=== PATIENT | female | born 1975 | race African-American/Black ===

== ENCOUNTER → 2016-12-29 | Outpatient (CLI) | payer BC ==
[~2016-12-29] MED LIST: ADVIN50/60 INH; ALBUAER19 INH; FRRS300 PO; HYDUNK PO; METO100T7 PO; WARF2TAB PO; folic acid PO
--- NOTE | 2016-12-30 05:41 | PAP/PSG TECHNICIAN REPORT ---
[facility] Survey Data Technician Polysomnogram Report Study name: None Report date: 12/30/2016 Study date: 12/29/2016 Referring Physician: Olivia GONZALEZ M.D. Name: FERNANDO LAWSON Interpreting Physician: Vikash Gonzalez M.D. Date of : 1975 Survey Data Technician: Iman Young RPSGT. Sex: Female Age: 41 Study Type: PSG Weight: 370 lbs Height: 41 years, Height 5' 7" BMI: 57.94 Medications: FUROSEMIDE 20 MG, DUONEB 2.5-0.5 MG/3 ML, OMEPRAZOLE 20 MG, COUMADIN 1 MG AND 5 MG, ALBUTEROL 90 MCG Patient History 41 yr-old female here for a baseline/split study. She has had previous sleep testing. She was found to have mild GIULIANA. She is back to assess her GIULIANA. Her [place] scale is 7. The test was started on room air. ETCO2 testing is included in this study. Room 1 Parameters Monitored NPSG: E1-M2, E2-M1, Fp1-M2, Fp2-M1, F3-M2, F4-M2, F4-M1, C3-M2, C4-M2, C4-M1, O1-M2, O2-M2, O2-M1, T3-M2, T4-M1, P3-M2, P4-M1, CHIN1, CHIN2, HR, EKG, Legs, PFLOW, SNOR, FLOW, CFLOW, Tidal Volume, THOR, ABDO, SpO2, PLTH, CPRESS, ETCO2 Wave, ETCO2, pH Sleep Architecture Sleep Stages Time at Lights Off 10:49:25 PM STAGES Time (min.) TST (%) Time at Lights On 5:13:25 AM Wake 130.0 -- Total Recording Time (TRT) 384.00 min. N1 49.5 19 Total Sleep Period (TSP) 306.0 min. N2 107.5 42 Total Sleep Time (TST) 254.0min. N3 67.0 26 Awake Time 130.0 min. REM 30.0 12 Wake after Sleep Onset 77.0 min. Sleep Efficiency (SE) 66 % Sleep Onset Latency (TRANG) 53.0 min. Number of Stage 1 Shifts None Awakenings 19 Stage Changes 101 Number of REM periods 3 REM 30.0 12 REM Latency 129.0 min. NREM 224.0 88 Body Position Analysis Supine Right Left Side Prone Vertical Total Sleep Time (min.) 47.7 0.0 231.5 231.50 0.0 0.0 Total Sleep Time (%) 9% 0% 91% 91 0% N/A% Total Sleep Time REM (min.) 0.0 0.0 30.0 None 0.0 0.0 Total Sleep Time NREM (min.) 22.5 0.0 201.5 None 0.0 0.0 Intermittent Wake (min.) 25.2 0.0 104.8 None 0.0 0.0 Total Sleep Period (%) 10% None None None None None Arousals Myoclonus (PLM) * Events Count Index Events Count Index Spontaneous 25 6 Events Awake (PLMW) 121 55.8 Respiratory 7 1.7 Events Asleep w/ Arousal (PLMA) 29 6.9 PLM 28 7 Events Asleep w/o Arousal (PLMS) 329 77.7 Snoring 13 3 Total Asleep 358 84.6 Total 73 17 Total 479 75 Respiratory Analysis * CA OA MA CH H RERA Total Count 1 0 0 0 26 2 27 Index 0.2 0.0 0.0 0 6.1 0 6.9 Mean Duration 10.2 0.0 0.0 0.00 16.3 15.1 16.0 Longest Duration 10.2 0.0 0.0 0.00 0.0 16.3 32.2 Respiratory Event Summary Total Supine ~Supine Right Left Prone REM NREM Apneas Count 1 0 1 N/A 1 N/A 0 1 Index 0.2 0 0 N/A 0.3 N/A 0 0 Hypopneas (4% Desat) Count 26 0 26 N/A 26 N/A 19 7 Index 6.1 0.0 7 N/A 6.7 N/A 38.0 1.9 Apneas & All Hypopneas Count 27 0 27 N/A 27 N/A 19 8 Index 6.4 0 7 N/A 7 N/A 38.0 2.1 Respiratory Events (Semiconductor Assembler+All Hyp+RERA) Count 27 0 29 N/A 29 N/A 19 8 Index 6.9 0 8 N/A 7.5 N/A 38.0 2.7 Respiratory Related Arousal Count 7 0 7 N/A 7 N/A 3 4 Index 1.7 0 2 N/A 2 N/A 6 1 Snoring Analysis Supine Right Left Prone REM NREM Total Snore duration 25.6 min Snores count 107 N/A 1,041 N/A 30 1,118 1,148 Snore mean duration 1.3 Sec Snores index 285 N/A 270 N/A 60.0 299.5 271.2 TST with snoring (%) 10.1% SpO2 Analysis Total REM NREM Awake <50% 0.0 min. 0.0 min. 0.0 min. 0.0 min. 51 - 60% 0.0 min. 0.0 min. 0.0 min. 0.0 min. 61 - 70% 0.0 min. 0.0 min. 0.0 min. 0.0 min. 71 - 80% 1.1 min. 0.6 min. 0.3 min. 0.2 min. 81 - 90% 263.8 min. 27.9 min. 201.2 min. 34.7 min. 91 - 100% 96.5 min. 1.4 min. 22.0 min. 73.2 min. Average 89 86 88 92 Minimum SpO2 72 77 80 72 Desaturation Event Index 15.5 54.0 11.0 14.8 # Desat. Events below 89% 77 27 33 17 Time(%) with Saturation below 89% 48.5 7.0 38.1 3.4 Time(min.) with Saturation below 89% 175.3 25.4 137.7 12.2 Heart Rate Analysis End Tidal CO2 Analysis Min (bpm) Max (bpm) Average (bpm) TSP (mins) % of TSP Awake 46 237 109 Above 55 mmHg 0.0 0.0 NREM 70 102 93 50-55 mmHg 0.0 0.0 REM 70 104 90 45-50 mmHg 0.0 0.0 Overall 70 104 92 40-45 mmHg 0.0 0.0 35-40 mmHg 5.0 2.0 30-35 mmHg 189.2 74.5 Average ETCO2 0.0 Supplemental O2 Values Minimum O2 level: None Value Start Time End Time Survey Data Technician Comments Ms. Lawson slept in the left and supine positions. No cardiac arrhythmias were noted. PLMs were noted throughout the study. No bruxism noted. Snoring was noted and scored as a 2 on a scale of 1 through 5. (0=no snoring, 5=snoring loud enough to be heard through a closed door or down the [address] way) She did not meet specific Split-Night criteria during the diagnostic portion of this study. She awoke to use the restroom one time during the night. She woke up a little before 5 am and stated that she could no longer sleep. She requested to end the study at that time. Ms. Lawson stated that she slept poorly due to a stuffy nose. The final report will be interpreted and signed by a sleep physician. The completed physician report will then be placed in the patient medical record. Therapy (cm H2O) 0 TIB (min.) 384.0 TST (min.) 254.0 Sleep Onset (min.) 53.0 REM Onset From Sleep (min.) 129.0 Sleep Efficiency % 66 Wakefulness (%) 34 Wakefulness (min.) 130.0 NREM 1 (%) 19 NREM 1 (min.) 49.5 NREM 2 (%) 42 NREM 2 (min.) 107.5 NREM 3 (%) 26 NREM 3 (min.) 67.0 REM (%) 12 REM (min.) 30.0 # Arousals 73 Arousal Index 17 # Snore 1,148 Snore Index 271.2 AHI 6.4 AHI Supine 0 AHI Non-Supine 7 NREM AHI 2.1 REM AHI 38.0 RDI 6.9 # Obstructive Apnea 0 # Central Apnea 1 # Mixed Apnea 0 # Hypopneas 26 RERAs 2 Total Respiratory Events 29 Time Below SpO2 89% (min.) 163.1 Mean NREM SpO2 (%) 88 Mean REM SpO2 (%) 86 Mean Sleep SpO2 (%) 88 Min NREM SpO2 (%) 80 Min REM SpO2 (%) 77 Position Supine (min.) 47.7 Position Non-supine (min.) 231.5 LM Index Sleep 84.6 LM Index NREM 91.3 LM Index REM 34.0 Mean Heart Rate (bpm) 92 Min Heart Rate (bpm) 70
--- NOTE | 2017-01-15 10:05 | POLYSOMNOGRAPH REPORT ---
REFERRING PERSON: Dr. Jessee Gonzalez. [employer] T[employer] HELICOPTER: Iman Young. Ms. Aden is a 41-year-old female who was previously found to have mild obstructive sleep apnea on previous sleep testing. She is currently not using CPAP equipment but is sent for reevaluation. Her Gilmer Sleepiness Scale score on the evening of this study is 7. BMI is 57.94. Following the technical and digital specifications of the [place] [employer] (AASM) a standard diagnostic polysomnogram was performed monitoring EEG, EOG, EMG (chin and leg deviations), oxygen saturation, body position, digital video, respiratory effort and airflow. The sleep Stage and event scoring was based on the AASM Manual for the Scoring of Sleep and Associated Events 2007 edition. Apneas are defined as a drop in the peak thermal sensor excursion by >90% of baseline for at least 10 seconds. Hypopneas were scored using the 4% oxygen desaturation rule (4A-Medicare) and a decrease in the nasal pressure excursions by >30% of baseline for at least 10 seconds. Respiratory effort-related arousal (RERA's) is defined as a sequence of breaths lasting at least 10 seconds characterized by increasing respiratory effort or flattening of the nasal pressure waveform leading to an arousal from sleep when the sequence of breaths does not meet criteria for an apnea or hypopnea. Apnea Hypopnea index (AHI) is defined as the number of apneas and hypopneas occurring in an hour of sleep. Respiratory disturbance index (RDI) is defined as the number of apneas, hypopneas, and RERA's occurring in an hour of sleep. Ms. Aden' total sleep period time was 306 minutes. Total sleep time was 254 minutes. Sleep efficiency was 66%. Her latency to sleep onset was 53 minutes with wake after sleep onset of 77 minutes. Total non-REM sleep time was 224 minutes. She spent 11% of that time in N1 sleep, 42% in N2 sleep, and 26% in N3 sleep. REM latency was 129 minutes. Total REM sleep time was 30 minutes or 12% of total sleep time. There were 73 cortical arousals from sleep. Seven of these arousals were respiratory related, 28 due to periodic limb movements of sleep, 13 were due to snoring, and 25 were spontaneous. There were 358 periodic limb movements. Limb movement index was 84.6 with an arousal index of 6.9. There were no obstructive, 1 central, and no mixed apneas on this test. There were 26 hypopnea and 2 RERA. Apnea-hypopnea index was mildly elevated at 6.4. REM AHI was 38. Most events occurred during REM sleep. There were 1148 snoring events recorded. Total sleep time with snoring was 10.1%. Mean saturation was low at 89% with desaturations with the respiratory events of 72%. Saturations were less than 89 for 175.3 minutes of recording time. This is significant nocturnal hypoxemia. There was no cardiac ectopy noted on this study. Heart rates ranged from a low of 70 beats per minute to a high of 104 beats per minute during sleep. End-tidal CO2 was recorded on this test but was not elevated. This data, however, was incomplete. IMPRESSION AND PLAN: A 41-year-old female with confirmed evidence of mild sleep apnea, severe in REM sleep, who also has significant nocturnal hypoxemia on this test. This patient would likely benefit from positive airway pressure therapy. She should return to sleep lab for a full night titration and then based on those results be started on equipment at home. A download from her machine can be reviewed in 1 month both to check compliance as well as AHI and further pressure adjustments can occur at that time.
== END | disposition home or self-care (01) ==
LOC: C.NEUR 20:00
PROVIDERS: ATTEND Family Medicine
DX: I27.2 Other secondary pulmonary hypertension (principal); I27.82 Chronic pulmonary embolism; G47.33 Obstructive sleep apnea (adult) (pediatric)

== ENCOUNTER → 2017-01-11 | Outpatient (CLI) | payer BC ==
--- NOTE | 2017-01-11 14:31 | DIAGNOSTIC IMAGING REPORT ---
NUCLEAR PULMONARY VENTILATION/PERFUSION SCAN CLINICAL HISTORY: Pulmonary hypertension. COMPARISON STUDY: Chest x-ray dated 01/10/2017. Chest CT dated 04/10/2012. TECHNIQUE: Initially, ventilation images of both lungs are obtained following the inhalation of 31.6 mCi of aerosolized technetium 99m DTPA. Subsequently, perfusion images of both lungs were obtained following the IV administration of 5.5 mCi of technetium 99m MAA. Ventilation and perfusion images were acquired in the anterior, posterior, and oblique projections. FINDINGS: A chest x-ray performed 01/10/2017 shows enlarged heart. The lungs appear clear. Emphysema was shown on the 2012 CT scan. The ventilation of both lungs is markedly heterogeneous. Deposition of tracer within the central airways suggest obstructive physiology. Inhaled tracer is noted in the stomach.. Perfusion of both lungs is markedly heterogeneous. There are several segmental defects. These are likely matched with the perfusion defects. IMPRESSION: 1. Markedly heterogeneous ventilation and perfusion. Findings are considered intermediate probability for pulmonary embolus which is not excluded. 2. Findings suggest obstructive physiology. Electronically signed by: Obed Harper M.D. 01/11/2017 2:30 PM Dictated Date/Time: 01/11/2017 2:27 PM
== END | disposition home or self-care (01) ==
LOC: C.NUCL 12:48
PROVIDERS: ATTEND Internal Medicine Pulmonary Disease
DX: I27.2 Other secondary pulmonary hypertension (principal); I27.82 Chronic pulmonary embolism; R09.02 Hypoxemia; Z79.01 Long term (current) use of anticoagulants; D68.59 Other primary thrombophilia

== ENCOUNTER 2019-09-17 22:09 | Inpatient (IN) ==
[2019-09-17] MEDS ORDERED: ONDANSETRON INJ 2 MG/ML 2 ML VIAL IV STA (22:32)
--- NOTE | 2019-09-17 22:37 | Emergency Department Note ---
History of Present Illness General Chief complaint: Abdominal Pain Stated complaint: SEVERE STOMACH AND BACK PAIN Time Seen by Provider: 09/17/19 22:20 History of Present Illness Maximum Pain Intensity: 9 This is a 43-year-old female presenting to the emergency department for epigastric and right upper quadrant abdominal pain for the past 2 days. Patient states the pain was initially very dull but has increased in severity, and she currently rates it a /10. Patient does not have a history of abdominal surgery previously. She does have a history of chronic right-sided CHF and multiple pulmonary emboli, for which she is on Coumadin. She does follow with pulmonology in [place]. Patient has not had recent travel history, and does not report fevers or chills. No nausea or vomiting. Activity and food does not seem to improve or worsen her symptoms. There is no radiation of pain to the lower abdomen. Home Medications Home Medications Medication Instructions Recorded Confirmed Type albuterol sulfate [Ventolin HFA] 2 puff INHALATION QID PRN 09/30/18 09/17/19 History ferrous sulfate 325 mg PO DAILY 09/30/18 09/17/19 History macitentan 10 mg PO DAILY 09/30/18 09/17/19 History omeprazole 20 mg PO DAILY 09/30/18 09/17/19 History riociguat 2.5 mg PO TID 09/30/18 09/17/19 History ipratropium-albuterol 3 ml NEB Q6 PRN #180 ml 10/04/18 09/17/19 Rx potassium chloride 20 meq PO BID #60 tab 10/04/18 09/17/19 Rx bumetanide 3 mg PO BID 09/17/19 09/17/19 History warfarin [Coumadin] 8 mg PO DAILY 09/17/19 09/17/19 History Allergies Allergy/AdvReac Type Severity Reaction Status Date / Time codeine Allergy Unknown unknown Verified 09/17/19 23:27 Penicillins Allergy Unknown unknown Verified 09/17/19 23:27 Past Med/Surg History Medical History Acute and chronic respiratory failure (Acute) Acute asthma exacerbation (Acute) Asthma Bronchitis HTN (hypertension) Microcytic anemia (Chronic) Morbid obesity with BMI of 60.0-69.9, adult (Chronic) On home O2 Pulmonary embolism (Chronic) Pulmonary hypertension (Chronic) Surgical History History of embolectomy Social History Preferred Language: Swedish Communication Ability: Effective Visual Impairment: No Limitations Hearing Ability: Normal Beliefs That Will Affect Care: None Current Living Situation: Alone Feels Safe at Home: Yes Smoking Status: Never smoker Hx Alcohol Use: Yes Hx Substance Use: No Review of Systems A total of 10 systems reviewed and were otherwise negative Physical Exam Vital Signs Vital Signs - 24 hr 09/17/19 22:12 09/17/19 23:33 09/18/19 00:59 Temperature 36.6 C Temperature Source Oral Pulse Rate 98 H Pulse Rate [Right Finger] 89 81 Pulse Rhythm Regular Pulse Strength Normal Respiratory Rate 24 22 20 Respiratory Effort / Characteristics Non-Labored Spontaneous Respiratory Depth Normal Normal Respiratory Pattern Regular Blood Pressure 149/90 H Blood Pressure [Right Arm] 137/80 137/80 Blood Pressure Mean 109 Blood Pressure Mean [Right Arm] 99 99 Blood Pressure Position Sitting Pulse Oximetry 89 L 96 95 Oxygen Delivery Method Room Air Nasal Cannula Nasal Cannula Oxygen Flow Rate 2 2 Sepsis Recent Fever Within 48 Hours No Sepsis Action Taken by Nursing No Action Required VITALS: Vitals are noted on the nurse's note and reviewed by myself. Vital signs stable. GENERAL: Morbidly obese black female who is cooperative with the exam. HEAD: Normocephalic atraumatic. HEART: Regular rate and rhythm without murmurs gallops or rubs. LUNGS: Clear to auscultation bilaterally without wheezes, rales or rhonchi. No retractions or accessory muscle use. ABDOMEN: Positive normal bowel sounds x 4. Soft with distinct epigastric and right upper quadrant tenderness. No lower abdominal tenderness. No CVA tenderness. MUSCULOSKELETAL: No muscle atrophy, erythema, or edema noted. Full range of motion in all extremities. NEURO: Patient was alert and oriented to person place and time. CN II through XII grossly intact. SKIN: The skin was without rashes, erythema, edema, or bruising. Capillary refill less than 2 seconds. Course Administered Medications Ceftriaxone Sodium 2,000 mg/ (Dextrose) 70 mls @ 100 mls/hr IV Q24H [facility]; Protocol Stop: 09/28/19 02:59 Last Admin: 09/18/19 03:38 Dose: 100 mls/hr Documented by: [id number] Potassium Chloride/Sodium Chloride (Normal Saline W/20 Meq Kcl) 20 meq in 1,000 mls @ 100 mls/hr IV .Q10H [facility]ON Stop: 10/18/19 02:59 Last Infusion: 09/18/19 03:12 Dose: 0 mls/hr Documented by: [id number] Admin: 09/18/19 02:59 Dose: 100 mls/hr Documented by: [id number] Discontinued Medications Hydromorphone HCl (Dilaudid) 0.5 mg IV NOW STA Stop: 09/18/19 01:14 Last Admin: 09/18/19 01:22 Dose: 0.5 mg Documented by: [id number] Hydromorphone HCl (Dilaudid) 0.5 mg IV NOW STA Stop: 09/18/19 02:49 Last Admin: 09/18/19 02:58 Dose: 0.5 mg Documented by: [id number] Sodium Chloride (Nss 1000ml) 1,000 mls @ 125 mls/hr IV .Q8H LEON Stop: 10/17/19 22:44 Last Infusion: 09/18/19 03:13 Dose: 0 mls/hr Documented by: [id number] Admin: 09/17/19 22:48 Dose: 125 mls/hr Documented by: [id number] Phytonadione 10 mg/ Sodium (Chloride) 51 mls @ 102 mls/hr IV ONE ONE Stop: 09/18/19 02:35 Last Infusion: 09/18/19 03:29 Dose: 0 mls/hr Documented by: [id number] Admin: 09/18/19 02:59 Dose: 102 mls/hr Documented by: [id number] Morphine Sulfate (Morphine Sulfate) 4 mg IV Q1H PRN PRN Reason: Pain Stop: 10/01/19 22:31 Last Admin: 09/18/19 02:28 Dose: 4 mg Documented by: [id number] Admin: 09/18/19 00:57 Dose: 4 mg Documented by: [id number] Admin: 09/17/19 23:35 Dose: 4 mg Documented by: [id number] Admin: 09/17/19 22:43 Dose: 4 mg Documented by: [id number] Ondansetron HCl (Zofran) 4 mg IV NOW STA Stop: 09/17/19 22:33 Last Admin: 09/17/19 22:43 Dose: 4 mg Documented by: [id number] Medical Decision Making Differential Diagnosis Differential diagnosis: Etiologies such as biliary colic, cholecystitis, hepatitis, pancreatitis, cardiac disease, pancreatitis, gastritis, peptic ulcer disease, appendicitis, cystitis, diverticulitis, mesenteric ischemia, inflammatory bowel disease, ileus, bowel obstruction, testicular/adnexal torsion, aortic pathology, shingles, as well as others were considered Laboratory Data Result diagrams: 09/17/19 22:27 09/17/19 22:27 Lab Results 09/17/19 09/17/19 09/17/19 Range/Units 22:27 22:27 22:27 WBC 9.23 (4.8-10.8) K/uL RBC 5.07 (4.2-5.4) M/uL Hgb 11.4 L (12.0-16.0) g/dL Hct 37.3 (37-47) % MCV 73.6 L (80-100) fL MCH 22.5 L (25-34) pg MCHC 30.6 L (32-36) g/dL RDW Std Deviation 55.8 H (36.4-46.3) fL RDW Coeff of Malinda 20.9 H (11.5-14.5) % Plt Count 355 (130-400) K/uL MPV 10.0 (7.4-10.4) fL Immature Gran % (Auto) 0.2 % Neut % (Auto) 70.8 % Lymph % (Auto) 21.3 % [place] % (Auto) 5.9 % Eos % (Auto) 1.7 % Baso % (Auto) 0.1 % Immature Gran # (Auto) 0.02 (0.00-0.02) K/uL Neut # (Auto) 6.53 H (1.4-6.5) K/uL Lymph # (Auto) 1.97 (1.2-3.4) K/uL [place] # (Auto) 0.54 (0.11-0.59) K/uL Eos # (Auto) 0.16 (0-0.5) K/uL Baso # (Auto) 0.01 (0-0.2) K/uL Polychromasia 1+ Anisocytosis Present Ovalocytes 1+ PT 21.9 H (9.0-12.0) Seconds INR 2.3 H (0.9-1.1) APTT 30.5 (21.0-31.0) Seconds PTT Ratio 1.1 D-Dimer 310 (0-500) ug/L FEU Sodium 135 L (136-145) mmol/L Potassium 2.9 L (3.5-5.1) mmol/L Chloride 94 L (98-107) mmol/L Carbon Dioxide 35 H (21-32) mmol/L Anion Gap 7.0 (3-11) BUN 17 (7-18) mg/dl Creatinine 1.17 (0.6-1.2) mg/dl Est Cr Clr Drug Dosing 102.7 ml/min Est GFR ( Amer) 66.6 Est GFR (Non-Af Amer) 57.4 BUN/Creatinine Ratio 14.1 (10-20) Glucose 151 H (70-99) mg/dl Calcium 9.4 (8.5-10.1) mg/dl Magnesium 2.0 (1.8-2.4) mg/dl Total Bilirubin 0.3 (0.2-1) mg/dl AST 18 (15-37) U/L ALT 27 (12-78) U/L Alkaline Phosphatase 85 (45-117) U/L Troponin I < 0.015 (0-0.045) ng/ml NT-Pro-B Natriuret Pep 168 (0-450) pg/ml Total Protein 9.0 H (6.4-8.2) gm/dl Albumin 3.6 (3.4-5.0) gm/dl Globulin 5.4 H (2.5-4.0) gm/dl Albumin/Globulin Ratio 0.7 L (0.9-2) Lipase 243 (73-393) U/L TSH 3.170 (0.300-4.500) uIu/ml Imaging Data Radiologist's Impression: Preliminary Findings Only See Final Report For Complete Findings US GALLBLADDER: Distended GB with multiple gallstones. Borderline GB wall thickening, measuring up to 4 mm, but this measurement appears exaggerated.. Sonographic Bush sign is negative. No pericholecystic fluid. Findings are equivocal for cholecystitis. Correlation with nuclear medicine biliary scan could be considered as clinically warranted. No biliary dilatation. The liver parenchyma is heterogeneous increased in echogenicity, which may represent hepatic steatosis and/or hepatocellular disease. Liver is enlarged. Right kidney is unremarkable. XR chest 2V PA/lateral, XR KUB/Abdomen 1 view HISTORY: 43 years-old Female Epigastric/RUQ ab pains acute epigastric abdominal pain COMPARISON: Chest radiograph 10/03/2018, CTA chest 04/10/2012 TECHNIQUE: Portable AP view of the chest with KUB radiograph FINDINGS: CHEST: Cardiac silhouette is enlarged, unchanged. There is prior median sternotomy changes present. Chronic linear right upper lung opacities may reflect scarring. There is no pneumothorax or large pleural effusion. No overt pulmonary edema. Hazy opacities are noted throughout the left lung with ill-defined nodular foci of the left upper lung measuring up to 8 mm. Degenerative changes of the shoulders and spine. Study is limited secondary to body habitus of the patient. KUB: IVC filter noted at the level of L1-L2. Nonobstructive bowel gas pattern. Mild to moderate fecal retention. No urolith. No pneumatosis or pneumoperitoneum. Mild degenerative changes of the spine, pelvis and hips. No acute fracture. IMPRESSION: 1. Mild to moderate fecal retention with nonobstructive bowel gas pattern. 2. Cardiomegaly without overt pulmonary edema. 3. Indeterminate hazy opacities throughout the left lung may reflect airspace d isease versus summation density. 4. There are a few nodular foci of the left upper lobe which measure up to 8 mm. Findings could be further evaluated with a nonemergent follow-up CT of the chest. ECG Data Additional Comments: Normal sinus rhythm @92 BPM Possible Left atrial enlargement Rightward axis Nonspecific T wave abnormality Prolonged QT Abnormal ECG When compared with ECG of 30-SEP-2018 12:55, No significant change was found MDM Narrative Physical exam and history were performed. Nursing notes, EMR, and Medication List were personally reviewed. Patient appears to have epigastric and right upper quadrant tenderness for the past 2 days. She does have reproducible discomfort on exam. IV access was established and labs were obtained. She was gently hydrated with fluids and given IV morphine and IV Zofran for comfort. She was sent to ultrasound for fur ther evaluation of her symptoms. She was placed on the cardiac exercise physiologist. The patient's blood work is as above and was reviewed. She does not have significantly elevated white blood cell count. She is mildly anemic, however this does appear chronic. Lipase and transaminases are not diagnostic. D-dimer is negative, as is her troponin. INR is 2.3. TSH is euthyroid. Chest and abdominal x-rays were reviewed by myself and radiology showing some mild constipation but no obvious acute findings. Ultrasound was performed and also reviewed, and is concerning for cholecystitis. She does have sludge, stones, and a thickened gallbladder wall. I had a lengthy discussion with the patient regarding her findings. She did require multiple rounds of pain medication to remain comfortable, and ultimately I did provide her IV Dilaudid. Based on her symptoms I do have concern for biliary colic, and the case was discussed with the on-call surgeon, Dr. Clemons, who is comfortable with following the patient in the hospital. The case was discussed with the on-call hospitalist, who agreed to evaluate the patient for further care. Please see their dictation for further patient course, plan, and disposition. The chart was completed utilizing [employer] Speech Voice Recognition Software. Grammatical errors, random word insertions, pronoun errors, and incomplete sentences are an occasional consequence of this system due to software limitations, ambient noise, and hardware issues. Any formal questions or concerns about the content, text, or information contained within the body of this dictation should be directly addressed to the provider for clarification. . Impression & Plan Abdominal pain, Biliary colic Discharge Plan Visit Data *Final* Discharge Date/Time: 09/18/19 02:26 Chief Complaint: Abdominal Pain Stated Complaint: SEVERE STOMACH AND BACK PAIN ED Provider: Gee Daniel ED Midlevel Provider: Himanshu Lujan Discharge Problem: Abdominal pain, Biliary colic Patient Disposition: Admitted As Inpatient Discharge Instructions Interventions: ED Discharge Assessment Last Done: 09/18/19 02:26 Discharge Problem: Abdominal pain Qualifiers: Abdominal location: right upper quadrant Qualified Code(s): R10.11 - Right upper quadrant pain
[2019-09-17 22:42] LABS: Basophils # (auto) 0.01 K/uL (0-0.2); Basophils % (auto) 0.1 %; Eosinophils # (auto) 0.16 K/uL (0-0.5); Eosinophils % (auto) 1.7 %; Hematocrit (blood only) 37.3 % (37-47); Hemoglobin 11.4 g/dL (12.0-16.0); Immature Granulocytes # (auto) 0.02 K/uL (0.00-0.02); Immature Granulocytes % (auto) 0.2 %; Lymphocytes # (auto) 1.97 K/uL (1.2-3.4); Lymphocytes % (auto) 21.3 %; Mean Corpuscular Hemoglobin 22.5 pg (25-34); Mean Corpuscular Hgb Conc 30.6 g/dL (32-36); Mean Corpuscular Volume 73.6 fL (80-100); Monocytes # (auto) 0.54 K/uL (0.11-0.59); Monocytes % (auto) 5.9 %; Neutrophils # (auto) 6.53 K/uL (1.4-6.5); Neutrophils % (auto) 70.8 %; Platelet Count 355 K/uL (130-400); RDW Coefficient of Variation 20.9 % (11.5-14.5); RDW Standard Deviation 55.8 fL (36.4-46.3); Red Blood Count 5.07 M/uL (4.2-5.4); White Blood Count 9.23 K/uL (4.8-10.8)
[2019-09-17] MEDS: MoRPHine SULFATE 4 MG/ML 1 ML CARP\\VIAL IV PRN ×2 (22:43→23:35)
[2019-09-17] MEDS ORDERED: SODIUM CHLORIDE 0.9% 1000ML 1,000 ML IV SCH (22:45)
[2019-09-17 22:52] LABS: Albumin Level 3.6 gm/dl (3.4-5.0); BUN Creatinine Ratio 14.1 (10-20); Blood Urea Nitrogen 17 mg/dl (7-18); Calcium 9.4 mg/dl (8.5-10.1); Carbon Dioxide 35 mmol/L (21-32); Chloride 94 mmol/L (98-107); Creatinine Clr Calc Pharmacy 102.7 ml/min; Est GFR (African American) 66.6; Est GFR (Non-African American) 57.4; Glucose 151 mg/dl (70-99); Lipase 243 U/L (73-393); Potassium 2.9 mmol/L (3.5-5.1); Sodium 135 mmol/L (136-145)
[2019-09-17 23:00] LABS: Anisocytosis Present; Ovalocytes 1+; Polychromasia 1+
[2019-09-17 23:04] LABS: Alanine Aminotransferase 27 U/L (12-78); Albumin Globulin Ratio 0.7 (0.9-2); Alkaline Phosphatase 85 U/L (45-117); Aspartate Aminotransferase 18 U/L (15-37); Bilirubin,Total 0.3 mg/dl (0.2-1); Globulin 5.4 gm/dl (2.5-4.0); NT Pro B Type Natriuretic Pept 168 pg/ml (0-450); Troponin I < 0.015 ng/ml (0-0.045)
[2019-09-17 23:05] LABS: D Dimer 310 ug/L FEU (0-500); INR 2.3 (0.9-1.1); Partial Thromboplastin Ratio 1.1; Partial Thromboplastin Time 30.5 Seconds (21.0-31.0); Prothrombin Time 21.9 Seconds (9.0-12.0)
--- NOTE | 2019-09-17 23:07 | XRay Report ---
XR chest 2V PA/lateral, XR KUB/Abdomen 1 view HISTORY: 43 years-old Female Epigastric/RUQ ab pains acute epigastric abdominal pain COMPARISON: Chest radiograph 10/03/2018, CTA chest 04/10/2012 TECHNIQUE: Portable AP view of the chest with KUB radiograph FINDINGS: CHEST: Cardiac silhouette is enlarged, unchanged. There is prior median sternotomy changes present. Chronic linear right upper lung opacities may reflect scarring. There is no pneumothorax or large pleural eff usion. No overt pulmonary edema. Hazy opacities are noted throughout the left lung with ill-defined n odular foci of the left upper lung measuring up to 8 mm. Degenerative changes of the shoulders and sp ine. Study is limited secondary to body habitus of the patient. KUB: IVC filter noted at the level of L1-L2. Nonobstructive bowel gas pattern. Mild to moderate fecal ret ention. No urolith. No pneumatosis or pneumoperitoneum. Mild degenerative changes of the spine, pelvi s and hips. No acute fracture. IMPRESSION: 1. Mild to moderate fecal retention with nonobstructive bowel gas pattern. 2. Cardiomegaly without overt pulmonary edema. 3. Indeterminate hazy opacities throughout the left lung may reflect airspace disease versus summatio n density. 4. There are a few nodular foci of the left upper lobe which measure up to 8 mm. Findings could be fu rther evaluated with a nonemergent follow-up CT of the chest. The above report was generated using voice recognition software. It may contain grammatical, syntax o r spelling errors. Electronically signed by: Roger Hunter M.D. 09/17/2019 11:04 PM
[2019-09-18] MEDS: MoRPHine SULFATE 4 MG/ML 1 ML CARP\\VIAL IV PRN ×2 (00:57→02:28)
[2019-09-18] MEDS ORDERED: HYDROmorphone INJ 0.5 MG/0.5 ML SYR IV STA ×2 (01:13→02:48)
[2019-09-18] MEDS ORDERED: PHYTONADIONE 10 MG in SODIUM CHLORIDE 0.9% 50 ML IV ONE (02:06)
[2019-09-18] MEDS ORDERED: ACETAMINOPHEN 1,000 MG/100 ML VIAL IV PRN (02:48)
[2019-09-18] MEDS ORDERED: ONDANSETRON INJ 2 MG/ML 2 ML VIAL IV PRN (02:48)
[2019-09-18] MEDS ORDERED: PROCHLORPERAZINE 10 MG in SYRINGE 8 ML IV PRN (02:48)
[2019-09-18] MEDS: NSS + 20MEQ KCL 20 MEQ/1,000 ML BAG IV SCH ×2 (02:59→13:39)
[2019-09-18] MEDS ORDERED: cefTRIAXone SODIUM 2,000 MG in DEXTROSE 5% 50 ML IV SCH (03:00)
[2019-09-18] MEDS: HYDROmorphone INJ 1 MG/ML SYRINGE IV PRN ×2 (03:40→06:43)
--- NOTE | 2019-09-18 05:04 | History & Physical Report ---
Date of Service September 18, 2019 Assessment & Plan (1) Biliary colic: Biliary colic/severe trach and right upper quadrant abdominal pain with radiation around right-sided back- Gallbladder ultrasound shows a enlarged gallbladder with several stones, but not definitive for acute cholecystitis. Order HIDA scan NM. N.p.o. except essential medications. Ceftriaxone 1 g IV daily. Acetaminophen 1 g IV every 8 hours PRN mild pain or temperature. Dilaudid 1 mg IV every 3 hours as needed severe pain. Zofran 4 mg IV every 6 hours as needed nausea. Compazine 10 mg IV every 6 hours as needed nausea not relieved by Zofran. Famotidine 20 mg IV every 12 hours NSS + KCl 20 mEq at 100 mils per hour. I did discuss with patient, that if her gallbladder work-up is negative, then a further GI work-up would be necessary. Present on Admission?: Yes (2) Abdominal pain: See above Present on Admission?: Yes (3) GIULIANA (obstructive sleep apnea): Patient wears home oxygen, continued nasal cannula 2 L. Present on Admission?: Yes (4) Chronic right-sided congestive heart failure: Will hold bumetanide and gently rehydrate. Present on Admission?: Yes (5) Pulmonary embolism: INR 2.6, will be reversed with vitamin K 10 mg IV. Repeat INR in the a.m., and to depend upon results of GI work-up, start heparin IV infusion if needed. Present on Admission?: Yes (6) Asthma: Continue Ventolin HFA 2 puffs 4 times daily as needed Present on Admission?: Yes (7) On home O2: As noted Present on Admission?: Yes History of Present Illness She does report having rema Chief Complaint: The patient presents to the emergency department with severe epigastric and right upper quadrant pain over the past 2 days, but worsened over the past few hours. Primary Care Provider: Teresa Ybarra The patient is a 43-year-old female with a past medical history including pulmonary emboli on warfarin, asthma, hypertension, and chronic right-sided CHF who presents to the emergency department with 2 days of worsening epigastric and right upper quadrant pain, occasionally accompanied by nausea without vomiting. She has not had any recent travels or sick exposures. She has not had any questionable food intakes. She has not had these symptoms in the past. She does report however having problems with nausea on and off over the past couple years. She does report having a stomach ulcer in the seventh grade. Allergies Allergy/AdvReac Type Severity Reaction Status Date / Time codeine Allergy Unknown unknown Verified 09/17/19 23:27 Penicillins Allergy Unknown unknown Verified 09/17/19 23:27 Home Medications Home Medications Medication Instructions Recorded Confirmed Type albuterol sulfate [Ventolin HFA] 2 puff INHALATION QID PRN 09/30/18 09/17/19 History ferrous sulfate 325 mg PO DAILY 09/30/18 09/17/19 History macitentan 10 mg PO DAILY 09/30/18 09/17/19 History omeprazole 20 mg PO DAILY 09/30/18 09/17/19 History riociguat 2.5 mg PO TID 09/30/18 09/17/19 History ipratropium-albuterol 3 ml NEB Q6 PRN #180 ml 10/04/18 09/17/19 Rx potassium chloride 20 meq PO BID #60 tab 10/04/18 09/17/19 Rx bumetanide 3 mg PO BID 09/17/19 09/17/19 History warfarin [Coumadin] 8 mg PO DAILY 09/17/19 09/17/19 History Past Med/Surg History Medical History Acute and chronic respiratory failure (Acute) Acute asthma exacerbation (Acute) Asthma Bronchitis HTN (hypertension) Microcytic anemia (Chronic) Morbid obesity with BMI of 60.0-69.9, adult (Chronic) On home O2 Pulmonary embolism (Chronic) Pulmonary hypertension (Chronic) Surgical History History of embolectomy Social History Preferred Language: Montserratian Communication Ability: Effective Visual Impairment: No Limitations Hearing Ability: Normal Semiconductor Engineer Required: No Beliefs That Will Affect Care: None Current Living Situation: Alone Other Information That Helps Us Care for You: No Feels Safe at Home: Yes Safety Concerns: Feels Safe At This Time Smoking Status: Never smoker Hx Alcohol Use: Yes Alcohol type: wine Hx Substance Use: No Review of Systems Review of Systems: The patient denies chest pain, palpitations, shortness of breath, dyspnea on exertion, cough, lower extremity swelling, sore throat, fevers, chills, sweats, vomiting, diarrhea , constipation, pelvic pain, blood in urine or stool, dysuria, urinary frequency or urgency, lightheadedness, dizziness, headache, memory loss, loss of consciousness, rash, abnormal bruising or bleeding, imbalance, focal or generalized weakness, numbness or tingling in arms or legs, generalized arthralgias or myalgias, back or neck pain, or night sweats. The review of systems is otherwise negative other than for that already noted above, and at least 10 systems have been reviewed. Physical Exam Physical Exam: The patient is awake, alert and oriented 3, well developed and well nourished, normocephalic and atraumatic, sitting upright in bed and in moderate distress secondary to abdominal pain. HEENT--PERRL, EOMI, mucous membranes and oropharynx normal. Neck--supple. No JVD. No bruits. Thyroid normal, trachea midline, no adenopathy. Heart--normal S1 and S2. No murmurs, rubs or gallops. Lungs--clear bilaterally, no respiratory distress, no accessory muscle use. Abdomen--normal bowel sounds and soft. Tender right upper quadrant and epigastrium. Morbidly obese. Extremities--no cyanosis or clubbing. No edema. Dermatologic--normal skin turgor, normal color, no abnormal lymph nodes, no rash. Neurologic--cranial nerves II through XII grossly intact. Rheumatologic--normal range of motion. Psychiatric--normal affect. Results & Data Vital Signs (Past 12 Hours) Vital Signs Temp Pulse Pulse Resp BP BP Pulse Ox 09/18/19 02:48 97.9 F 78 22 138/72 94 09/18/19 00:59 81 20 137/80 95 09/17/19 23:33 89 22 137/80 96 09/17/19 22:12 97.9 F 98 H 24 149/90 H 89 L Laboratory Results Laboratory Results WBC 9.23 K/uL (4.8-10.8) 09/17/19 22:27 RBC 5.07 M/uL (4.2-5.4) 09/17/19 22:27 Hgb 11.4 g/dL (12.0-16.0) L 09/17/19 22:27 Hct 37.3 % (37-47) 09/17/19: MCV 73.6 fL (80-100) L 09/17/19: MCH 22.5 pg (25-34) L 09/17/19: MCHC 30.6 g/dL (32-36) L 09/17/19: RDW Std Deviation 55.8 fL (36.4-46.3) H 09/17/19: RDW Coeff of Malinda 20.9 % (11.5-14.5) H 09/17/19: Plt Count 355 K/uL (130-400) 09/17/19: MPV 10.0 fL (7.4-10.4) 09/17/19: Immature Gran % (Auto) 0.2 % 09/17/19: Neut % (Auto) 70.8 % 09/17/19: Lymph % (Auto) 21.3 % 09/17/19: Jay % (Auto) 5.9 % 09/17/19: Eos % (Auto) 1.7 % 09/17/19: Baso % (Auto) 0.1 % 09/17/19: Immature Gran # (Auto) 0.02 K/uL (0.00-0.02) 09/17/19: Neut # (Auto) 6.53 K/uL (1.4-6.5) H 09/17/19: Lymph # (Auto) 1.97 K/uL (1.2-3.4) 09/17/19: Jay # (Auto) 0.54 K/uL (0.11-0.59) 09/17/19: Eos # (Auto) 0.16 K/uL (0-0.5) 09/17/19: Baso # (Auto) 0.01 K/uL (0-0.2) 09/17/19: Polychromasia 1+ 09/17/19: Anisocytosis Present 09/17/19: Ovalocytes 1+ 09/17/19: PT 21.9 Seconds (9.0-12.0) H 11/13/19 22:27 INR 2.3 (0.9-1.1) H 09/17/19 22: APTT 30.5 Seconds (21.0-31.0) 09/17/19 22: PTT Ratio 1.1 09/17/19 22: D-Dimer 310 ug/L FEU (0-500) 09/17/19 22:27 Sodium 135 mmol/L (136-145) L 09/17/19 22: Potassium 2.9 mmol/L (3.5-5.1) L 09/17/19 22: Chloride 94 mmol/L (98-107) L 09/17/19 22: Carbon Dioxide 35 mmol/L (21-32) H 09/17/19: Anion Gap 7.0 (3-11) 09/17/19 22: BUN 17 mg/dl (7-18) 09/17/19: Creatinine 1.17 mg/dl (0.6-1.2) 09/17/19: Est Cr Clr Drug Dosing 102.7 ml/min 09/17/19 22: Est GFR ( Amer) 66.6 09/17/19 22: Est GFR (Non-Af Amer) 57.4 09/17/19: BUN/Creatinine Ratio 14.1 (10-20) 09/17/19 22: Glucose 151 mg/dl (70-99) H 09/17/19 22: Calcium 9.4 mg/dl (8.5-10.1) 09/17/19: Magnesium 2.0 mg/dl (1.8-2.4) 09/17/19 22: Total Bilirubin 0.3 mg/dl (0.2-1) 09/17/19 22: AST 18 U/L (15-37) 09/17/19: ALT 27 U/L (12-78) 09/17/19: Alkaline Phosphatase 85 U/L (45-117) 09/17/19 22: Troponin I < 0.015 ng/ml (0-0.045) 09/17/19: NT-Pro-B Natriuret Pep 168 pg/ml (0-450) 09/17/19 22:27 Total Protein 9.0 gm/dl (6.4-8.2) H 09/17/19 22:27 Albumin 3.6 gm/dl (3.4-5.0) 09/17/19 22:27 Globulin 5.4 gm/dl (2.5-4.0) H 09/17/19 22:27 Albumin/Globulin Ratio 0.7 (0.9-2) L 09/17/19 22:27 Lipase 243 U/L (73-393) 09/17/19 22:27 TSH 3.170 uIu/ml (0.300-4.500) 09/17/19 22:27 Diagnostic Findings [place], [place] [phone] XRay Report Patient: FERNANDO LAWSON EAdmit Date: 09/17/19 MR#: [id number]: [address] [facility] Acct ID:[id number]: Date: 1975[facility] Zip: [place] [address] Age: 43Location: ED Sex: F Room/Bed: Att Phy:Diagnosis: SEVERE STOMACH AND BACK PAIN Rina Phy: Teresa YbarraService Date: 09/17/19 Fam Phy:Interpreting Phy: Moises Hunter Admit Phy: Ordering Phy: Himanshu Lujan PA-C cc: ~ XR chest 2V PA/lateral, XR KUB/Abdomen 1 view HISTORY: 43 years-old Female Epigastric/RUQ ab pains acute epigastric abdominal pain COMPARISON: Chest radiograph 10/03/2018, CTA chest 04/10/2012 TECHNIQUE: Portable AP view of the chest with KUB radiograph FINDINGS: CHEST: Cardiac silhouette is enlarged, unchanged. There is prior median sternotomy changes present. Chronic linear right upper lung opacities may reflect scarring. There is no pneumothorax or large pleural effusion. No overt pulmonary edema. Hazy opacities are noted throughout the left lung with ill-defined nodular foci of the left upper lung measuring up to 8 mm. Degenerative changes of the shoulders and spine. Study is limited secondary to body habitus of the patient. KUB: IVC filter noted at the level of L1-L2. Nonobstructive bowel gas pattern. Mild to moderate fecal retention. No urolith. No pneumatosis or pneumoperitoneum. Mild degenerative changes of the spine, pelvis and hips. No acute fracture. IMPRESSION: 1. Mild to moderate fecal retention with nonobstructive bowel gas pattern. 2. Cardiomegaly without overt pulmonary edema. 3. Indeterminate hazy opacities throughout the left lung may reflect airspace disease versus summation density. 4. There are a few nodular foci of the left upper lobe which measure up to 8 mm. Findings could be further evaluated with a nonemergent follow-up CT of the chest. The above report was generated using voice recognition software. It may contain grammatical, syntax or spelling errors. Electronically signed by: Roger Hunter M.D. 09/17/2019 11:04 PM Dictated: 09/17/192255 Transcribed: 09/17/192255 [place], [place] [phone] XRay Report Patient: FERNANDO LAWSON EAdmit Date: 09/17/19 MR#: [id number]: [address] [place] [address] Acct ID:[id number]: Date: 1975City Zip: [place] [address] Age: 43Location: ED Sex: F Room/Bed: Att Phy:Diagnosis: SEVERE STOMACH AND BACK PAIN Rina Phy: Teresa YbarraService Date: 09/17/19 Fam Phy:Interpreting Phy: Moises Hunter Admit Phy: Ordering Phy: Himanshu Lujan PA-C cc: ~ XR chest 2V PA/lateral, XR KUB/Abdomen 1 view HISTORY: 43 years-old Female Epigastric/RUQ ab pains acute epigastric abdominal pain COMPARISON: Chest radiograph 10/03/2018, CTA chest 04/10/2012 TECHNIQUE: Portable AP view of the chest with KUB radiograph FINDINGS: CHEST: Cardiac silhouette is enlarged, unchanged. There is prior median sternotomy changes present. Chronic linear right upper lung opacities may reflect scarring. There is no pneumothorax or large pleural effusion. No overt pulmonary edema. Hazy opacities are noted throughout the left lung with ill-defined nodular foci of the left upper lung measuring up to 8 mm. Degenerative changes of the shoulders and spine. Study is limited secondary to body habitus of the patient. KUB: IVC filter noted at the level of L1-L2. Nonobstructive bowel gas pattern. Mild to moderate fecal retention. No urolith. No pneumatosis or pneumoperitoneum. Mild degenerative changes of the spine, pelvis and hips. No acute fracture. IMPRESSION: 1. Mild to moderate fecal retention with nonobstructive bowel gas pattern. 2. Cardiomegaly without overt pulmonary edema. 3. Indeterminate hazy opacities throughout the left lung may reflect airspace disease versus summation density. 4. There are a few nodular foci of the left upper lobe which measure up to 8 mm. Findings could be further evaluated with a nonemergent follow-up CT of the chest. The above report was generated using voice recognition software. It may contain grammatical, syntax or spelling errors. Electronically signed by: Roger Hunter M.D. 09/17/2019 11:04 PM Dictated: 09/17/19 2256 Transcribed: 09/17/19 2256 Code Status & VTE Plan Code Status Full code VTE Prophylaxis Plan VTE Prophylaxis will be ordered: Yes PG Care Time/CCT Total # of Minutes Spent Total Time Spent with Patient: Total time spent is greater than 50% in coordination of care (as documented) at patient's floor/unit and/or counseling patient: (1) Abdominal pain Abdominal location: right upper quadrant Qualified Code(s): R10.11 - Right upper quadrant pain (2) Pulmonary embolism Chronicity: chronic Acute cor pulmonale presence: without acute cor pulmonale
[2019-09-18] MEDS: FAMOTIDINE 20 MG in SYRINGE 3 ML IV SCH ×2 (05:36→17:33)
--- NOTE | 2019-09-18 07:27 | Ultrasound Report ---
US gallbladder CLINICAL HISTORY: 43 years-old Female presenting with RUQ/epigastric pain. TECHNIQUE: Real-time grayscale and limited color Doppler ultrasound imaging of the abdomen limited to the right upper quadrant was performed. COMPARISON: None. FINDINGS: Pancreas: Visualized portions of the pancreatic head and body normal. Liver: Markedly hyperechogenic parenchyma with obscuration of the right hemidiaphragm, likely indicat ing marked hepatic steatosis. The liver measures 21.3 cm in maximal sagittal dimension. No sonographi c evidence of hepatic mass. Main portal vein patent with normal directional flow. Biliary: No intrahepatic biliary ductal dilatation. Common bile duct measures up to 5 mm in diameter. Gallbladder: Gallstones. The gallbladder is likely physiologically distended. No pericholecystic flui d or inflammatory change. Borderline wall thickening measuring 4 mm. Sonographic Bush's sign negati ve. Right kidney: Normal in appearance without evidence of hydronephrosis. Ascites: None. Other: None. IMPRESSION: 1. Cholelithiasis. No biliary ductal dilatation. No overwhelming evidence of cholecystitis. If there remains concern for this diagnosis, HIDA scan should be obtained as there are some equivocal finding s on this ultrasound. 2. Hepatic steatosis and hepatomegaly. Correlate with liver function tests to exclude steatohepatiti s as a cause for abdominal pain. Electronically signed by: Geoff Meraz M.D. 09/18/2019 7:26 AM
[2019-09-18] MEDS ORDERED: IBUPROFEN 200 MG TAB PO PRN (08:09)
[2019-09-18] MEDS ORDERED: KETOROLAC 30 MG/ML VIAL IV ONE (08:09)
[2019-09-18 10:38] LABS: INR 1.6 (0.9-1.1); Prothrombin Time 15.6 Seconds (9.0-12.0)
--- NOTE | 2019-09-18 10:50 | Surgery Consultation ---
Date of Consultation September 18, 2019 Assessment & Plan (1) Abdominal pain: This is a 43y F with a PMH significant for PE's s/p embolectomy x2 on coumadin, pulmonary HTN, and right sided CHF who presents to the [facility] ED on 09/17 with complaints of abdominal pain. Workup included a RUQ US that revealed cholelithiasis without ductal dilation or pericholecystic fluid, not overly concerning for acute cholecystitis. LFT's and WBC unremarkable and patient is afebrile. At this time patient's pain is being managed by prn NSAIDS & tylenol as narcotics did not help. On exam her abdomen is only mildly tender and belly is soft and non-distended. Patient has a significant medical history that should be considered for perioperative planning. Since patient's pain is improving and there is no evidence for acute cholecystitis would recommend performing surgery for cholecystectomy on a more scheduled basis. Would rather have this performed in a controlled setting where patient can follow up with her pulmonary HTN doc for krystin-op recommendations, coumadin clinic who would likely set her up with bridging, anesthesia, etc. Patient did receive vitamin K today in prep for a procedure, however I would not reverse any further at this time. I will discuss this case with Dr. Henderson. as above. pt with extensive medical hx including emergency flights to [place] from [facility] in [place] for sternotomy's for embolectomies. also has pulmonary hypertension. no emergent need cholecystectomy at this time. no pericholecystic fluid, no leukocytosis etc...feeling better. recommend diet, if tolerates d/c. should be seen at a major tertiary center such as [place] or [facility] for her surgical procedures. pt agrees. History of Present Illness Attending Physician: Joshua Tang DO History of Present Illness This is a 43y F with a PMH of GIULIANA, PEx2 on coumadin s/p embolectomy in 1993 & 2003, and pulmonary HTN on home O2 who presents to the [facility] ED on 09/17/19 with complaints of epigastric abdominal pain. The patient reports her pain started Sunday evening after eating a steak and mac &cheese dinner at [employer]. She took an Ibuprofen and was able to go to sleep. Throughout Sunday her pain returned and progressively worsened. She states her pain ranked a 12/10 in severity and described it as sharp and stabbing-like and radiating towards her right upper back. She came to the ED for further evaluation and had a RUQ US that revealed cholelithiasis without ductal dilation, and without overwhelming evidence of acute cholecystitis. Patient afebrile and labs showed WBC 9, INR:2.3, tbili: 0.3, ast:18, alt:27, and lipase:243. Patient was admitted under medicine and surgery was consulted for evaluation due to concern for gallbladder etiology as the cause of her signs and symptoms. Patient denies nausea/vomiting, abdominal distention, fevers/chills, diarrhea or constipation. She has not experienced pain like this in the past. She had two open heart surgeries for embolectomy in the past but no abdominal surgeries. Allergies Allergy/AdvReac Type Severity Reaction Status Date / Time codeine Allergy Unknown unknown Verified 09/17/19 23:27 Penicillins Allergy Unknown unknown Verified 09/17/19 23:27 Home Medications Home Medications Medication Instructions Recorded Confirmed Type albuterol sulfate [Ventolin HFA] 2 puff INHALATION QID PRN 09/30/18 09/17/19 History ferrous sulfate 325 mg PO DAILY 09/30/18 09/17/19 History macitentan 10 mg PO DAILY 09/30/18 09/17/19 History omeprazole 20 mg PO DAILY 09/30/18 09/17/19 History riociguat 2.5 mg PO TID 09/30/18 09/17/19 History ipratropium-albuterol 3 ml NEB Q6 PRN #180 ml 10/04/18 09/17/19 Rx potassium chloride 20 meq PO BID #60 tab 10/04/18 09/17/19 Rx bumetanide 3 mg PO BID 09/17/19 09/17/19 History warfarin [Coumadin] 8 mg PO DAILY 09/17/19 09/17/19 History Patient History Medical History Acute and chronic respiratory failure (Acute) Acute asthma exacerbation (Acute) Asthma Bronchitis HTN (hypertension) Microcytic anemia (Chronic) Morbid obesity with BMI of 60.0-69.9, adult (Chronic) On home O2 Pulmonary embolism (Chronic) Pulmonary hypertension (Chronic) Surgical History History of embolectomy Family History Other No pertinent family history Social History Preferred Language: Grenadian Communication Ability: Effective Visual Impairment: No Limitations Hearing Ability: Normal Mail Processing Associate Required: No Beliefs That Will Affect Care: None marital status: Single Current Living Situation: Alone Other Information That Helps Us Care for You: No Feels Safe at Home: Yes Safety Concerns: Feels Safe At This Time Smoking Status: Never smoker Hx Alcohol Use: Yes Alcohol type: wine Hx Substance Use: No Review of Systems Constitutional: no fever and no chills Gastrointestinal: + abdominal pain (epigastric pain radiating to R upper back); no bloating, no nausea, no vomiting, no constipation and no diarrhea/loose stools Physical Exam Physical Exam: awake/alert Constitutional: well developed, well nourished and + obese; no acute distress Respiratory: respiratory effort normal, patient wearing supplemental O2 via nasal cannula Gastrointestinal (Abdomen): Inspection/Auscultation: abdomen not distended Percussion/Palpation: + abdomen tender (very mild ttp in epigastric region) and abdomen soft Results & Data Vital Signs (Past 12 Hours) Vital Signs Temp Pulse Resp BP Pulse Ox 09/18/19 07:16 36.7 C 90 20 131/85 92 09/18/19 02:48 36.6 C 78 22 138/72 94 09/18/19 00:59 81 20 137/80 95 09/17/19 23:33 89 22 137/80 96 US gallbladder CLINICAL HISTORY: 43 years-old Female presenting with RUQ/epigastric pain. TECHNIQUE: Real-time grayscale and limited color Doppler ultrasound imaging of the abdomen limited to the right upper quadrant was performed. COMPARISON: None. FINDINGS: Pancreas: Visualized portions of the pancreatic head and body normal. Liver: Markedly hyperechogenic parenchyma with obscuration of the right hemidiaphragm, likely indicating marked hepatic steatosis. The liver measures 21.3 cm in maximal sagittal dimension. No sonographic evidence of hepatic mass. Main portal vein patent with normal directional flow. Biliary: No intrahepatic biliary ductal dilatation. Common bile duct measures up to 5 mm in diameter. Gallbladder: Gallstones. The gallbladder is likely physiologically distended. No pericholecystic fluid or inflammatory change. Borderline wall thickening measuring 4 mm. Sonographic Bush's sign negative. Right kidney: Normal in appearance without evidence of hydronephrosis. Ascites: None. Other: None. IMPRESSION: 1. Cholelithiasis. No biliary ductal dilatation. No overwhelming evidence of cholecystitis. If there remains concern for this diagnosis, HIDA scan should be obtained as there are some equivocal findings on this ultrasound. 2. Hepatic steatosis and hepatomegaly. Correlate with liver function tests to exclude steatohepatitis as a cause for abdominal pain. Electronically signed by: Geoff Meraz M.D. 09/18/2019 7:26 AM PG Care Time/CCT Total # of Minutes Spent Total Time Spent with Patient: Total time spent is greater than 50% in coordination of care (as documented) at patient's floor/unit and/or counseling patient: (1) Abdominal pain Abdominal location: right upper quadrant Qualified Code(s): R10.11 - Right upper quadrant pain
[2019-09-18 11:06] LABS: Appearance Urine Clear (Clear); Bacteria Urine Automated Negative (Negative); Bilirubin Urine Negative (Negative); Blood Urine Negative (Negative); Color Urine Yellow; Epithelial Cell Urine Auto 20-30 /lpf (0-5); Glucose Urine UA Negative (Negative); Ketones Urine Negative (Negative); Leukocyte Esterase Urine Trace (Negative); Nitrite Urine Negative (Negative); Protein Urine Negative (Negative); RBC Urine Automated 0-4 /hpf (0-4); Urobilinogen Urine Negative (Negative)
--- NOTE | 2019-09-18 15:13 | Medical Student Progress Note ---
Date of Service September 18, 2019 Assessment & Plan (1) Abdominal pain: This is a 43y F with a PMH significant for PE's s/p embolectomy x2 on coumadin, pulmonary HTN, and right sided CHF who presents to the [facility] ED on 09/17 with complaints of abdominal pain. Workup included a RUQ US that revealed cholelithiasis without ductal dilation or pericholecystic fluid, not overly concerning for acute cholecystitis. LFT's and WBC unremarkable and patient is afebrile. At this time patient's pain is being managed by prn NSAIDS & tylenol as narcotics did not help. On exam her abdomen is only mildly tender and belly is soft and non-distended. Patient has a significant medical history that should be considered for perioperative planning. Since patient's pain is improving and there is no evidence for acute cholecystitis would recommend performing surgery for cholecystectomy on a more scheduled basis. Would rather have this performed in a controlled setting where patient can follow up with her pulmonary HTN doc for krystin-op recommendations, coumadin clinic who would likely set her up with bridging, anesthesia, etc. Patient did receive vitamin K today in prep for a procedure, however I would not reverse any further at this time. I will discuss this case with Dr. Henderson. as above. pt with extensive medical hx including emergency flights to [place] from [facility] in [place] for sternotomy's for embolectomies. also has pulmonary hypertension. no emergent need cholecystectomy at this time. no pericholecystic fluid, no leukocytosis etc...feeling better. recommend diet, if tolerates d/c. should be seen at a major tertiary center such as [place] or [facility] for her surgical procedures. pt agrees. Abdominal location: right upper quadrant Qualified Code(s): R10.11 - Right upper quadrant pain Subjective Patient is a 43 y/o female with a PMHx of pulmonary embolism, pulmonary HTN, chronic R sided CHF, and stomach ulcer complaining of severe stomach & back pain. The pain was persistent for the past day and a half, beginning at night. The pain kept waking her up throughout the night and and it progressively got worse since then. She rated the pain as a 10/10 at its worst, but now rates it as a 1/10 after receiving toradol. In terms of attempted relief, she tried ibuprofen 200 mg, which provided temporary, minimal relief, as well as pickle juice and water, which did not provide any relief. The pain was not exacerbated by fatty foods and was described as "it feels like someone is stabbing me." She also mentions that the pain radiates to the back, more so on the right side. Patient endorses feelings of nausea and vomiting (only after taking morphine - was clear, no blood present), but denies diarrhea and constipation. She denies any history of gallstones, sick contacts, or foodborne illnesses. After having seen her today, her pain did appear to worsen after eating two meals. Review of Systems Constitutional: no fever and no chills Eyes: no diplopia and no worsening vision Ear, Nose, Mouth, Throat: no hearing loss and no dysphagia Respiratory: + cough and + dyspnea Cardiovascular: no chest pain Gastrointestinal: + abdominal pain (epigastric pain radiating to R upper back); no bloating, no vomiting, no constipation, no diarrhea/loose stools and no melena Genitourinary: no dysuria and no hematuria Physical Exam Constitutional: well developed, well nourished and + obese; no acute distress Cardiovascular: Rate/Rhythm: regular rate and regular rhythm Heart Sounds: normal S1 and normal S2 Palpation: S3 nonpalpable and S4 nonpalpable Gastrointestinal (Abdomen): Inspection/Auscultation: abdomen not distended Percussion/Palpation: + abdomen tender (very mild ttp in epigastric region) and abdomen soft Results & Data Vital Signs (Past 12 Hours) Vital Signs Temp Pulse Resp BP Pulse Ox 09/18/19 07:16 36.7 C 90 20 131/85 92
[2019-09-18] MEDS ORDERED: ENOXAPARIN INJ 40 MG/0.4 ML SYR SQ ONE (15:31)
[2019-09-18] MEDS ORDERED: KETOROLAC 30 MG/ML VIAL IV PRN (15:35)
[2019-09-18] MEDS ORDERED: WARFARIN SOD 4 MG TAB PO SCH (16:00)
[2019-09-18] MEDS ORDERED: ENOXAPARIN INJ 60 MG/0.6 ML SYR SQ SCH (17:00)
--- NOTE | 2019-09-18 17:52 | Discharge Summary ---
Date of Service September 18, 2019 Admission HPI Per Admitting Provider The patient is a 43-year-old female with a past medical history including pulmonary emboli on warfarin, asthma, hypertension, and chronic right-sided CHF who presents to the emergency department with 2 days of worsening epigastric and right upper quadrant pain, occasionally accompanied by nausea without vomiting. She has not had any recent travels or sick exposures. She has not had any questionable food intakes. She has not had these symptoms in the past. She does report however having problems with nausea on and off over the past couple years. She does report having a stomach ulcer in the seventh grade. Principal Diagnosis cholecystitis, severe pain/severe biliary colic Discharge Exam gen - pleasant, when first saw earlier today NAD, revisit in the evening after eating appearing somewhat uncomfortable heent - nc at mmm breathing unlabored no accessory muscles good effort, on 2L NC O2 abd - soft ND, mild epigastric and fairly severe RUQ pain - enough voluntary guarding on exam that bush's was not attempted so as not to needlessly worsen discomfort. ext no c/c. neuro no focal deficits. skin no rashes no pallor or icterus Discharge Data Allergies Allergy/AdvReac Type Severity Reaction Status Date / Time codeine Allergy Unknown unknown Verified 09/17/19 23:27 Penicillins Allergy Unknown unknown Verified 09/17/19 23:27 Consultations 09/18/19 01:30 ED Decision to Admit Stat 09/18/19 02:48 Consult Case Management - Discharge Planning Routine 09/18/19 08:12 Consult General Surgery Routine 09/18/19 17:37 Burn CD for patient Routine Ordered Studies 09/17/19 22:32 US gallbladder Urgent US gallbladder CLINICAL HISTORY: 43 years-old Female presenting with RUQ/epigastric pain. TECHNIQUE: Real-time grayscale and limited color Doppler ultrasound imaging of the abdomen limited to the right upper quadrant was performed. COMPARISON: None. FINDINGS: Pancreas: Visualized portions of the pancreatic head and body normal. Liver: Markedly hyperechogenic parenchyma with obscuration of the right hemidiaphragm, likely indicating marked hepatic steatosis. The liver measures 21.3 cm in maximal sagittal dimension. No sonographic evidence of hepatic mass. Main portal vein patent with normal directional flow. Biliary: No intrahepatic biliary ductal dilatation. Common bile duct measures up to 5 mm in diameter. Gallbladder: Gallstones. The gallbladder is likely physiologically distended. No pericholecystic fluid or inflammatory change. Borderline wall thickening measuring 4 mm. Sonographic Bush's sign negative. Right kidney: Normal in appearance without evidence of hydronephrosis. Ascites: None. Other: None. IMPRESSION: 1. Cholelithiasis. No biliary ductal dilatation. No overwhelming evidence of cholecystitis. If there remains concern for this diagnosis, HIDA scan should be obtained as there are some equivocal findings on this ultrasound. 2. Hepatic steatosis and hepatomegaly. Correlate with liver function tests to exclude steatohepatitis as a cause for abdominal pain. Electronically signed by: Geoff Meraz M.D. 09/18/2019 7:26 AM XR chest 2V PA/lateral, XR KUB/Abdomen 1 view HISTORY: 43 years-old Female Epigastric/RUQ ab pains acute epigastric abdominal pain COMPARISON: Chest radiograph 10/03/2018, CTA chest 04/10/2012 TECHNIQUE: Portable AP view of the chest with KUB radiograph FINDINGS: CHEST: Cardiac silhouette is enlarged, unchanged. There is prior median sternotomy changes present. Chronic linear right upper lung opacities may reflect scarring. There is no pneumothorax or large pleural effusion. No overt pulmonary edema. Hazy opacities are noted throughout the left lung with ill-defined nodular foci of the left upper lung measuring up to 8 mm. Degenerative changes of the shoulders and spine. Study is limited secondary to body habitus of the patient. KUB: IVC filter noted at the level of L1-L2. Nonobstructive bowel gas pattern. Mild to moderate fecal retention. No urolith. No pneumatosis or pneumoperitoneum. Mild degenerative changes of the spine, pelvis and hips. No acute fracture. IMPRESSION: 1. Mild to moderate fecal retention with nonobstructive bowel gas pattern. 2. Cardiomegaly without overt pulmonary edema. 3. Indeterminate hazy opacities throughout the left lung may reflect airspace disease versus summation density. 4. There are a few nodular foci of the left upper lobe which measure up to 8 mm. Findings could be further evaluated with a nonemergent follow-up CT of the chest. The above report was generated using voice recognition software. It may contain grammatical, syntax or spelling errors. Electronically signed by: Roger Hunter M.D. 09/17/2019 11:04 PM XR chest 2V PA/lateral, XR KUB/Abdomen 1 view HISTORY: 43 years-old Female Epigastric/RUQ ab pains acute epigastric abdominal pain COMPARISON: Chest radiograph 10/03/2018, CTA chest 04/10/2012 TECHNIQUE: Portable AP view of the chest with KUB radiograph FINDINGS: CHEST: Cardiac silhouette is enlarged, unchanged. There is prior median sternotomy changes present. Chronic linear right upper lung opacities may reflect scarring. There is no pneumothorax or large pleural effusion. No overt pulmonary edema. Hazy opacities are noted throughout the left lung with ill-defined nodular foci of the left upper lung measuring up to 8 mm. Degenerative changes of the shoulders and spine. Study is limited secondary to body habitus of the patient. KUB: IVC filter noted at the level of L1-L2. Nonobstructive bowel gas pattern. Mild to moderate fecal retention. No urolith. No pneumatosis or pneumoperitoneum. Mild degenerative changes of the spine, pelvis and hips. No acute fracture. IMPRESSION: 1. Mild to moderate fecal retention with nonobstructive bowel gas pattern. 2. Cardiomegaly without overt pulmonary edema. 3. Indeterminate hazy opacities throughout the left lung may reflect airspace disease versus summation density. 4. There are a few nodular foci of the left upper lobe which measure up to 8 mm. Findings could be further evaluated with a nonemergent follow-up CT of the chest. The above report was generated using voice recognition software. It may contain grammatical, syntax or spelling errors. Electronically signed by: Roger Hunter M.D. 09/17/2019 11:04 PM Lab Results 09/17/19 09/17/19 09/17/19 Range/Units 22:27 22:27 22:27 WBC 9.23 (4.8-10.8) K/uL RBC 5.07 (4.2-5.4) M/uL Hgb 11.4 L (12.0-16.0) g/dL Hct 37.3 (37-47) % MCV 73.6 L (80-100) fL MCH 22.5 L (25-34) pg MCHC 30.6 L (32-36) g/dL RDW Std Deviation 55.8 H (36.4-46.3) fL RDW Coeff of Malinda 20.9 H (11.5-14.5) % Plt Count 355 (130-400) K/uL MPV 10.0 (7.4-10.4) fL Immature Gran % (Auto) 0.2 % Neut % (Auto) 70.8 % Lymph % (Auto) 21.3 % Mason % (Auto) 5.9 % Eos % (Auto) 1.7 % Baso % (Auto) 0.1 % Immature Gran # (Auto) 0.02 (0.00-0.02) K/uL Neut # (Auto) 6.53 H (1.4-6.5) K/uL Lymph # (Auto) 1.97 (1.2-3.4) K/uL Mason # (Auto) 0.54 (0.11-0.59) K/uL Eos # (Auto) 0.16 (0-0.5) K/uL Baso # (Auto) 0.01 (0-0.2) K/uL Polychromasia 1+ Anisocytosis Present Ovalocytes 1+ PT 21.9 H (9.0-12.0) Seconds INR 2.3 H (0.9-1.1) APTT 30.5 (21.0-31.0) Seconds PTT Ratio 1.1 D-Dimer 310 (0-500) ug/L FEU Sodium 135 L (136-145) mmol/L Potassium 2.9 L (3.5-5.1) mmol/L Chloride 94 L (98-107) mmol/L Carbon Dioxide 35 H (21-32) mmol/L Anion Gap 7.0 (3-11) BUN 17 (7-18) mg/dl Creatinine 1.17 (0.6-1.2) mg/dl Est Cr Clr Drug Dosing 102.7 ml/min Est GFR ( Amer) 66.6 Est GFR (Non-Af Amer) 57.4 BUN/Creatinine Ratio 14.1 (10-20) Glucose 151 H (70-99) mg/dl Calcium 9.4 (8.5-10.1) mg/dl Magnesium 2.0 (1.8-2.4) mg/dl Total Bilirubin 0.3 (0.2-1) mg/dl AST 18 (15-37) U/L ALT 27 (12-78) U/L Alkaline Phosphatase 85 (45-117) U/L Troponin I < 0.015 (0-0.045) ng/ml NT-Pro-B Natriuret Pep 168 (0-450) pg/ml Total Protein 9.0 H (6.4-8.2) gm/dl Albumin 3.6 (3.4-5.0) gm/dl Globulin 5.4 H (2.5-4.0) gm/dl Albumin/Globulin Ratio 0.7 L (0.9-2) Lipase 243 (73-393) U/L TSH 3.170 (0.300-4.500) uIu/ml Urine Color Urine Appearance (Clear) Urine pH (4.5-7.5) Ur Specific [place] (1.000-1.030) Urine Protein (Negative) Urine Glucose (UA) (Negative) Urine Ketones (Negative) Urine Blood (Negative) Urine Nitrite (Negative) Urine Bilirubin (Negative) Urine Urobilinogen (Negative) Ur Leukocyte Esterase (Negative) Urine WBC (Auto) (0-5) /hpf Urine RBC (Auto) (0-4) /hpf U Hyaline Cast (Auto) (0-5) /lpf U Epithel Cells (Auto) (0-5) /lpf Urine Bacteria (Auto) (Negative) POC Ur Test 11/14/19 11/14/19 11/14/19 Range/Units 10:05 10:50 10:50 WBC (4.8-10.8) K/uL RBC (4.2-5.4) M/uL Hgb (12.0-16.0) g/dL Hct (37-47) % MCV (80-100) fL MCH (25-34) pg MCHC (32-36) g/dL RDW Std Deviation (36.4-46.3) fL RDW Coeff of Malinda (11.5-14.5) % Plt Count (130-400) K/uL MPV (7.4-10.4) fL Immature Gran % (Auto) % Neut % (Auto) % Lymph % (Auto) % Mason % (Auto) % Eos % (Auto) % Baso % (Auto) % Immature Gran # (Auto) (0.00-0.02) K/uL Neut # (Auto) (1.4-6.5) K/uL Lymph # (Auto) (1.2-3.4) K/uL Mason # (Auto) (0.11-0.59) K/uL Eos # (Auto) (0-0.5) K/uL Baso # (Auto) (0-0.2) K/uL Polychromasia Anisocytosis Ovalocytes PT 15.6 H (9.0-12.0) Seconds INR 1.6 H (0.9-1.1) APTT (21.0-31.0) Seconds PTT Ratio D-Dimer (0-500) ug/L FEU Sodium (136-145) mmol/L Potassium (3.5-5.1) mmol/L Chloride (98-107) mmol/L Carbon Dioxide (21-32) mmol/L Anion Gap (3-11) BUN (7-18) mg/dl Creatinine (0.6-1.2) mg/dl Est Cr Clr Drug Dosing ml/min Est GFR ( Amer) Est GFR (Non-Af Amer) BUN/Creatinine Ratio (10-20) Glucose (70-99) mg/dl Calcium (8.5-10.1) mg/dl Magnesium (1.8-2.4) mg/dl Total Bilirubin (0.2-1) mg/dl AST (15-37) U/L ALT (12-78) U/L Alkaline Phosphatase (45-117) U/L Troponin I (0-0.045) ng/ml NT-Pro-B Natriuret Pep (0-450) pg/ml Total Protein (6.4-8.2) gm/dl Albumin (3.4-5.0) gm/dl Globulin (2.5-4.0) gm/dl Albumin/Globulin Ratio (0.9-2) Lipase (73-393) U/L TSH (0.300-4.500) uIu/ml Urine Color Yellow Urine Appearance Clear (Clear) Urine pH 5.0 (4.5-7.5) Ur Specific [place] 1.020 (1.000-1.030) Urine Protein Negative (Negative) Urine Glucose (UA) Negative (Negative) Urine Ketones Negative (Negative) Urine Blood Negative (Negative) Urine Nitrite Negative (Negative) Urine Bilirubin Negative (Negative) Urine Urobilinogen Negative (Negative) Ur Leukocyte Esterase Trace H (Negative) Urine WBC (Auto) 1-5 (0-5) /hpf Urine RBC (Auto) 0-4 (0-4) /hpf U Hyaline Cast (Auto) 1-5 (0-5) /lpf U Epithel Cells (Auto) 20-30 H (0-5) /lpf Urine Bacteria (Auto) Negative (Negative) POC Ur Test Cancelled Hospital Course (1) Biliary colic: presented to ER w RUQ pain and exam findings c/w biliary colic. labs reassuring but US showing distended GB and probably mild cholecystitis changes (?possibly underestimated due to abdominal wall thickness?) -pain controlled once NPO and dose of toradol (morphine actually seemed to make pain worse) - surgical eval here - felt symptoms c/w biliary colic but given pulmonary HTN and chronic venous thromboembolic disease would be better served at tertiary center; plan was to advance diet and as long as could tolerate PO would have expedited outpt eval in conjunction with pt's primary pulmonary team (betzy) -unfortunately on two trials of eating, pt experienced near immediate recurrence of pain after eating - making it highly unlikely she could tolerate life outside of a hospital setting until GB issues resolved -called [facility] to discuss transfer - graciously accepted in transfer by Dr Cummins -NPO, IVF, supportive care (2) Abdominal pain: See above (3) GIULIANA (obstructive sleep apnea): Patient wears home oxygen, continued nasal cannula 2 L. uncertain if she uses CPAP or BiPAP - since transferring would review records from her pulmonary team - if she does not/only wears O2, then obviously would benefit from sleep study/intervention (4) Chronic right-sided congestive heart failure: due to probable severe pulmonary HTN (last echo of note in our system from september 2018 showing borderline LVH, normal LV systolic function, moderate LA dilation, mild RA dilation, mild/moderate TR, RV systolic pressure >60, IVC mildly dilated) -clinically stable on 2L O2 no acute respiratory symptoms (5) Pulmonary embolism: chronic and recurrent - appears to be the root cause of her pulmonary HTN. has had embolectomies i believe twice - but both in fairly distant past. currently maintained on coumadin - today's INR was sl low at 1.6 - started lovenox bridge (would anticipate in holding coumadin that INR would likely be low enough for surgery tomorrow if proceeding) -- would then resume lovenox as soon as possible after surgery and titrate coumadin up to therapeutic again. (6) Asthma: Continue Ventolin HFA 2 puffs 4 times daily as needed, no symptoms here (7) On home O2: As noted above Total Time Total Time Spent Total Time Spent (In Minutes): >30 Discharge Plan Discharge Items Patient Disposition: Transfer Acute Care Hospital Reason For Visit: SEVERE RUQ ABDOMINAL PAIN Discharge Diagnosis: Cholelithiasis Activity: Per Instructions section Non-emergency contact: Primary Care Provider, Surgeon and T[employer] Gate Keeper Call non-emergency contact if: your symptoms worsen and you have a fever Follow-up/Referrals: Teresa Ybarra [Primary Care Provider] - Diet: Low Fat Pending Studies at Discharge: No Stand-Alone Forms: Call Back Authorization, Replaced By [facility] Skilled Items Patient informed of condition?: Yes DNR: No Discharge Level of Care: Other Communicable Disease: No Discharge Prognosis: Stable Lines: None Urinary Catheter: No Medications and DC Order Prescriptions: Continued ferrous sulfate 325 mg (65 mg iron) Tablet 325 mg PO DAILY RF: 0 omeprazole 20 mg Capsule,Delayed Release(Dr/Ec) 20 mg PO DAILY RF: 0 albuterol sulfate [Ventolin HFA] 90 mcg/actuation Hfa Aerosol Inhaler 2 puff INHALATION QID PRN (Reason: Shortness Of Breath) RF: 0 riociguat 2.5 mg tablet 2.5 mg PO TID RF: 0 macitentan 10 mg tablet 10 mg PO DAILY RF: 0 ipratropium-albuterol 0.5 mg-3 mg(2.5 mg base)/3 mL Solution For Nebulization 3 ml NEB Q6 PRN (Reason: shortness of breath) Qty: 180 RF: 1 potassium chloride 20 mEq tablet extended release 20 meq PO BID Qty: 60 RF: 1 warfarin [Coumadin] 4 mg Tablet 8 mg PO DAILY RF: 0 bumetanide 1 mg tablet 3 mg PO BID RF: 0 Discharge Orders: Discharge Order (Routine); Ordered 09/18/19 Ordered By: Fahad Lopez Admission Data Admit Date/Time: 09/18/19 02:03 Attending Provider: Joshua Tang Admit Provider: Pablo Barrera Primary Care Provider: Teresa Ybarra Other Providers: Pablo Barrera ; Willard Henderson.
[2019-09-18] MEDS ORDERED: ENOXAPARIN 100 MG/1ML SYR SQ ONE (19:15)
[2019-09-18] MEDS ORDERED: HYDROmorphone INJ 0.5 MG/0.5 ML SYR IV PRN (20:11)
[2019-09-18] MEDS ORDERED: HYDROmorphone INJ 0.5 MG/0.5 ML SYR ONE (20:34)
[2019-09-19] MEDS: NSS + 20MEQ KCL 20 MEQ/1,000 ML BAG IV SCH (01:20)
[2019-09-19] MEDS ORDERED: ENOXAPARIN 150 MG/ML SYR SQ SCH (06:00)
== END 2019-09-19 00:14 | disposition short-term general hospital (02) | DRG 444 ==
LOC: ED 22:09 → SUATTDRO 09-18 02:03 → 3W 09-18 02:03

== ENCOUNTER 2021-11-24 12:39 | Inpatient (IN) ==
--- NOTE | 2021-11-24 13:51 | XRay Report ---
XR chest 1V portable CLINICAL HISTORY: Weakness. COMPARISON STUDY: Chest radiograph September 17, 2019. FINDINGS: Median sternotomy wires are noted. Cardiomegaly is unchanged. There is no pneumothorax or p leural effusion. Interstitial prominence is unchanged. There is no evidence for overt pulmonary edema . No consolidation is identified to suggest pneumonia. A few nodular densities within the left upper lung are unchanged. These are probably benign. IMPRESSION: 1. No acute findings. No significant change in appearance of the chest. 2. Stable cardiomegaly and interstitial prominence without overt pulmonary edema. 3. No change in several nodular densities within the left upper lung. These are probably benign but c an be assessed on subsequent exams to ensure stability. ACT 112: Negative or not required by law. Electronically signed by: Daniele Campos M.D. 11/24/2021 1:50 PM
[2021-11-24 14:01] LABS: Basophils # (auto) 0.01 K/uL (0-0.2); Basophils % (auto) 0.1 %; Eosinophils # (auto) 0.11 K/uL (0-0.5); Eosinophils % (auto) 1.1 %; Hematocrit (blood only) 36.8 % (37-47); Hemoglobin 11.5 g/dL (12.0-16.0); Immature Granulocytes # (auto) 0.02 K/uL (0.00-0.02); Immature Granulocytes % (auto) 0.2 %; Lymphocytes # (auto) 1.62 K/uL (1.2-3.4); Lymphocytes % (auto) 16.9 %; Mean Corpuscular Hemoglobin 24.7 pg (25-34); Mean Corpuscular Hgb Conc 31.3 g/dL (32-36); Mean Platelet Volume 10.1 fL (7.4-10.4); Monocytes # (auto) 0.52 K/uL (0.11-0.59); Monocytes % (auto) 5.4 %; Neutrophils # (auto) 7.32 K/uL (1.4-6.5); Neutrophils % (auto) 76.3 %; Platelet Count 401 K/uL (130-400); RDW Coefficient of Variation 18.2 % (11.5-14.5); RDW Standard Deviation 52.1 fL (36.4-46.3); Red Blood Count 4.66 M/uL (4.2-5.4)
[2021-11-24] MEDS: POTASSIUM CHLORIDE / WTR 10 MEQ/100 ML PLCT IV SCH ×2 (14:26→15:20)
[2021-11-24 14:31] LABS: INR 2.6 (0.9-1.1); Prothrombin Time 24.4 Seconds (9.0-12.0)
[2021-11-24 14:32] LABS: Albumin Globulin Ratio 0.9 (0.9-2); Albumin Level 4.1 gm/dl (3.4-5.0); BUN Creatinine Ratio 14.3 (10-20); Bilirubin,Total 0.5 mg/dl (0.2-1.0); Calcium 9.9 mg/dl (8.5-10.1); Creatinine Clr Calc Pharmacy 99.6 ml/min; Est GFR (African American) 64.3 ml/min; Est GFR (Non-African American) 55.5 ml/min; Globulin 4.5 gm/dl (2.5-4.0); Magnesium 1.9 mg/dl (1.7-2.4); Potassium 2.2 mmol/L (3.5-5.1); Total Protein 8.6 gm/dl (6.0-8.3)
[2021-11-24] MEDS ORDERED: POTASSIUM CHLORIDE 20 MEQ/15 ML UDC PO STA (15:18)
--- NOTE | 2021-11-24 16:11 | History & Physical Report ---
Date of Service November 24, 2021 Assessment & Plan (1) Hypokalemia: Plan: K 2.2 on admission; replaced with 40meq PO and 20 meq IV in the ER Repeat level in 4 hours after initial test and replace as necessary Suspect secondary to Bumex without adequate supplementation History of Present Illness Primary Care Provider: DO Lanette Reyesbia Aden is a 45 year old female who presents to the Allergies Allergy/AdvReac Type Severity Reaction Status Date / Time codeine Allergy Unknown unknown Verified 11/24/21 16:01 Penicillins Allergy Unknown unknown Verified 11/24/21 16:01 Home Medications Medication Instructions Recorded Confirmed Type albuterol sulfate 90 mcg/actuation 2 puff INHALATION QID PRN 09/30/18 11/24/21 History aerosol inhaler (Ventolin HFA) ferrous sulfate 325 mg (65 mg 325 mg PO DAILY 09/30/18 11/24/21 History iron) tablet omeprazole 20 mg capsule,delayed 20 mg PO DAILY 09/30/18 11/24/21 History release riociguat 2.5 mg tablet 2.5 mg PO TID 09/30/18 11/24/21 History bumetanide 1 mg tablet 2 mg PO BID 09/17/19 11/24/21 History metformin 750 mg tablet,extended 750 mg PO DAILY 11/24/21 11/24/21 History release 24 hr metolazone 2.5 mg tablet 2.5 mg PO DIRECTED 11/24/21 11/24/21 History potassium chloride 10 mEq 20 meq PO BID 11/24/21 11/24/21 History tablet,extended release topiramate 50 mg tablet 50 mg PO DAILY 11/24/21 11/24/21 History tramadol 50 mg tablet 50 mg PO DAILY PRN 11/24/21 11/24/21 History warfarin 7.5 mg tablet (Jantoven) 8.5 mg PO DAILY 11/24/21 11/24/21 History Past Med/Surg History Medical History (Updated 11/24/21 @ 16:09 by Kaushal Zuñiga MD) Acute and chronic respiratory failure Acute asthma exacerbation Asthma Bronchitis HTN (hypertension) Microcytic anemia Morbid obesity with BMI of 60.0-69.9, adult On home O2 Pulmonary embolism Pulmonary hypertension Surgical History History of embolectomy Family History Other No pertinent family history Social History Smoking Status: Never smoker Hx Alcohol Use: Yes Alcohol type: wine Hx Substance Use: No Preferred Language: Jamaican Communication Ability: Effective Visual Impairment: No Limitations Hearing Ability: Normal Car Mechanic Required: No Beliefs That Will Affect Care: None marital status: Single Current Living Situation: Alone Feels Safe at Home: Yes Assistive Devices: Glasses and Oxygen - Continuous Results & Data Results & Data ([facility]) Vital Signs (Past 12 Hours) Vital Signs Temp Pulse Pulse Resp BP BP Pulse Ox 11/24/21 14:43 83 14 93/72 L 98 11/24/21 13:35 88 14 97 11/24/21 12:56 93 H 20 128/105 H 100 11/24/21 12:53 37.0 C 93 H 20 128/105 H 100 Laboratory Results Abnormal lab results 11/24/21 11/24/21 11/24/21 Range/Units 13:43 13:43 13:43 Hgb 11.5 L (12.0-16.0) g/dL Hct 36.8 L (37-47) % MCV 79.0 L (80-100) fL MCH 24.7 L (25-34) pg MCHC 31.3 L (32-36) g/dL RDW Std Deviation 52.1 H (36.4-46.3) fL RDW Coeff of Malinda 18.2 H (11.5-14.5) % Plt Count 401 H (130-400) K/uL Neut # (Auto) 7.32 H (1.4-6.5) K/uL PT 24.4 H (9.0-12.0) Seconds INR 2.6 H (0.9-1.1) Potassium 2.2 L* (3.5-5.1) mmol/L Chloride 89 L (98-107) mmol/L Carbon Dioxide 40 H (21-32) mmol/L Glucose 126 H (70-99(Fasting)) mg/dl Total Protein 8.6 H (6.0-8.3) gm/dl Globulin 4.5 H (2.5-4.0) gm/dl Diagnostic Findings XR chest 1V portable CLINICAL HISTORY: Weakness. COMPARISON STUDY: Chest radiograph September 17, 2019. FINDINGS: Median sternotomy wires are noted. Cardiomegaly is unchanged. There is no pneumothorax or pleural effusion. Interstitial prominence is unchanged. There is no evidence for overt pulmonary edema. No consolidation is identified to suggest pneumonia. A few nodular densities within the left upper lung are unchanged. These are probably benign. IMPRESSION: 1. No acute findings. No significant change in appearance of the chest. 2. Stable cardiomegaly and interstitial prominence without overt pulmonary edema. 3. No change in several nodular densities within the left upper lung. These are probably benign but can be assessed on subsequent exams to ensure stability. Medications Administered ER Medications Given: KCl 40 meq PO KCl 10 meq IV x2 ECG Rhythm: sinus rhythm Findings: + other (Widespread T wave flattening), + LPFB and + PAC Comparison ECG Date: from (September 17, 2019) Change: the following changes noted (Premature atrial complexes are now Present, QRS axis Shifted right, Minimal criteria for Inferior infarct are now present, Nonspecific T wave abnormality, worse in Inferior leads) PG Care Time/CCT Total # of Minutes Spent Total Time Spent with Patient: Total time spent is greater than 50% in coordination of care (as documented) at patient's floor/unit and/or counseling patient: Coding Diagnoses Hypokalemia E87.6
[2021-11-24 16:17] LABS: Appearance Urine Clear (Clear); Bacteria Urine Automated 2+ (Negative); Blood Urine Negative (Negative); Color Urine Dark Yellow; Epithelial Cell Urine Auto >30 /lpf (0-5); Glucose Urine UA Negative (Negative); Ketones Urine Trace (Negative); Leukocyte Esterase Urine Negative (Negative); Nitrite Urine Negative (Negative); Protein Urine Trace (Negative); RBC Urine Automated 0-4 /hpf (0-4); Specific Gravity Urine 1.036 (1.000-1.030); Urobilinogen Urine Negative (Negative)
[2021-11-24 16:20] LABS: Bilirubin Urine 1+ (Negative)
[2021-11-24 16:36] LABS: Mucus Urine Present (None Prsent)
[2021-11-24 17:12] LABS: Calcium 9.8 mg/dl (8.5-10.1); Est GFR (African American) 67.7 ml/min; Est GFR (Non-African American) 58.4 ml/min; Potassium 2.4 mmol/L (3.5-5.1)
--- NOTE | 2021-11-24 18:55 | History & Physical Report ---
Date of Service November 24, 2021 Assessment & Plan (1) Hypokalemia: Plan: Probably due to potassium wasting from diuretics exceeding replacement. Wondered if magnesium might play a roleshe was taking mag as it relates to her migraines and stopped maybe 2 months ago, wondered if mag acting as a cofactor for K retention might play a roleI doubt it given that her mag is 1.9, but will replace with 400 mag oxide daily, repeat mag level in the morning to make sure the 1.9 is not erroneous. Given the context, unlikely to be any sort of renal potassium wasting syndrome. Obviously if this persists may need to consider for that Given her difficulty with taking oral potassium, her rather high diuretic dosing requirement, and her CHF diagnosisWill add/titrate spironolactoneas it may help her CHF, and will likely make things easier for her as far as potassium m anagement (2) Chronic right-sided congestive heart failure: Plan: Continue home diuretics, adding spironolactone as above (3) Pulmonary embolism: Plan: Continue anticoagulation, INR therapeutic (4) Asthma: Plan: PE, asthma, suspected OHScontinue home O2 for chronic hypoxic respiratory failure (5) HTN (hypertension): Plan: Continue home medswhich is essentially a diuretic regimen (6) DVT prophylaxis: Plan: Anticoagulated for PE (7) [facility] issues[facility] once potassium is better History of Present Illness Chief Complaint: Abnormal labs Primary Care Provider: Lissett Holley DO Patient is a very pleasant 45-year-old female who presents with abnormal labs, she has had somewhat low potassium recently, was having a little bit of hard time with the large potassium pills, so her PCP prescribed 10 mEq as a pill, but the same overall dosepatient notes she was able to take those okay. That said her potassium was as low as 2.2. She vaguely does not feel well from this, al though minimal as far as truly focal symptoms. Because she was not feeling well and her potassium was profoundly low, we were asked to see for admission. Review of systems is essentially negativeno diarrhea no GI symptoms, no changes in her diet, no recent changes in her diuretic other than that she thinks may be recently it was dropped a little. No breathing issues, no other GI issuesreview of systems otherwise negative except for as above Allergies Allergy/AdvReac Type Severity Reaction Status Date / Time codeine Allergy Unknown unknown Verified 11/24/21 16:01 Penicillins Allergy Unknown unknown Verified 11/24/21 16:01 Home Medications Medication Instructions Recorded Confirmed Type albuterol sulfate 90 mcg/actuation 2 puff INHALATION QID PRN 09/30/18 11/24/21 History aerosol inhaler (Ventolin HFA) ferrous sulfate 325 mg (65 mg 325 mg PO DAILY 09/30/18 11/24/21 History iron) tablet omeprazole 20 mg capsule,delayed 20 mg PO DAILY 09/30/18 11/24/21 History release riociguat 2.5 mg tablet 2.5 mg PO TID 09/30/18 11/24/21 History bumetanide 1 mg tablet 2 mg PO BID 09/17/19 11/24/21 History metformin 750 mg tablet,extended 750 mg PO DAILY 11/24/21 11/24/21 History release 24 hr metolazone 2.5 mg tablet 2.5 mg PO DIRECTED 11/24/21 11/24/21 History potassium chloride 10 mEq 20 meq PO BID 11/24/21 11/24/21 History tablet,extended release topiramate 50 mg tablet 50 mg PO DAILY 11/24/21 11/24/21 History tramadol 50 mg tablet 50 mg PO DAILY PRN 11/24/21 11/24/21 History warfarin 7.5 mg tablet (Jantoven) 8.5 mg PO DAILY 11/24/21 11/24/21 History Past Med/Surg History Medical History (Updated 11/24/21 @ 18:53 by Joshua Tang DO) Acute and chronic respiratory failure Acute asthma exacerbation Asthma Bronchitis HTN (hypertension) Microcytic anemia Morbid obesity with BMI of 60.0-69.9, adult On home O2 Pulmonary embolism Pulmonary hypertension Surgical History History of embolectomy Family History Other No pertinent family history Social History Smoking Status: Never smoker Hx Alcohol Use: Yes Alcohol type: wine Hx Substance Use: No Preferred Language: Arabic Communication Ability: Effective Visual Impairment: No Limitations Hearing Ability: Normal Field Health Officer Required: No Beliefs That Will Affect Care: None marital status: Single Current Living Situation: Alone Feels Safe at Home: Yes Assistive Devices: Glasses and Oxygen - Continuous Review of Systems Review of Systems: All systems reviewed & are unremarkable except as noted in HPI & below Physical Exam Physical Exam: In general she is awake and alert oriented pleasant no distress. HEENT normocephalic atraumatic mucous membranes moist. Cardio is regular without rubs murmurs or gallops. Lungs are clear to auscultation bilaterally no rales rhonchi or wheeze with good effort. Abdomen is soft nondistended nontender no masses organomegaly. Extremities without sinus clubbing or edema no calf tenderness. Neuro shows cranial nerves II through XII grossly intact gross motor and sensory intact. Musculoskeletal exam notes no gross lesions. Mental status shows good recent and remote recall normal mood and affect good judgment and insight. Results & Data Results & Data ([facility]) Vital Signs (Past 12 Hours) Vital Signs Temp Pulse Pulse Resp BP BP Pulse Ox 11/24/21 16:00 91 H 15 107/77 98 11/24/21 14:43 83 14 93/72 L 98 11/24/21 13:35 88 14 97 11/24/21 12:56 93 H 20 128/105 H 100 11/24/21 12:53 98.6 F 93 H 20 128/105 H 100 PG Care Time/CCT Total # of Minutes Spent Total Time Spent with Patient: Total time spent is greater than 50% in coordination of care (as documented) at patient's floor/unit and/or counseling patient: Coding Level of Care Code 89426 Initial Inpt Care Lvl 2 Diagnoses Hypokalemia E87.6 Chronic right-sided congestive heart failure I50.812 Pulmonary embolism I26.99 Chronicity: chronic Acute cor pulmonale presence: without acute cor pulmonale Asthma J45.909 HTN (hypertension) I10 DVT prophylaxis Z29.9 Discharge planning issues Z02.9 (1) Pulmonary embolism Chronicity: chronic Acute cor pulmonale presence: without acute cor pulmonale
[2021-11-24] MEDS ORDERED: POLYETHYLENE (MIRALAX) 17 GM PACK PO PRN (22:10)
[2021-11-24] MEDS ORDERED: ACETAMINOPHEN 325 MG TAB PO PRN (22:10)
[2021-11-24] MEDS ORDERED: MAGNESIUM HYDROXIDE SUSP 30 ML UDC PO PRN (22:10)
[2021-11-24] MEDS ORDERED: ONDANSETRON INJ 2 MG/ML 2 ML VIAL IV PRN (22:10)
[2021-11-24] MEDS ORDERED: ALUMINUM/MAGNESIUM SUSP 30 ML UDC PO PRN (22:10)
[2021-11-24] MEDS ORDERED: ALBUTEROL HFA 8 GM INHALER INH PRN (22:10)
[2021-11-24] MEDS ORDERED: traMADol HCL 50 MG TABLET PO PRN (22:10)
[2021-11-24] MEDS ORDERED: GLUCAGON FOR INJ 1 MG VIAL SQ PRN (22:57)
[2021-11-24] MEDS ORDERED: DEXTROSE 50% 50 ML SYRINGE IV PRN (22:57)
[2021-11-24] MEDS ORDERED: GLUCOSE 40% GEL 15 GM TUBE PO PRN (22:57)
[2021-11-24] MEDS ORDERED: CARBOHYDRATES FOR HYPOGLYCEMIA PO PRN (22:57)
[2021-11-24] MEDS ORDERED: GLUCOSE 10 TABS/TUBE PO PRN (22:57)
[2021-11-24] MEDS ORDERED: SPIRONOLACTONE 25 MG TAB PO ONE (23:00)
[2021-11-24] MEDS ORDERED: POTASSIUM CHLORIDE CRTAB 20 MEQ TABCR PO STA (23:07)
[2021-11-25] MEDS: POTASSIUM CHLORIDE 10 MEQ TABCR PO SCH ×4 (00:28→17:07)
[2021-11-25] MEDS: MAGNESIUM OXIDE 400 MG TAB PO SCH ×2 (00:29→08:05)
--- NOTE | 2021-11-25 06:59 | Electrocardiogram Report ---
Test Reason : Blood Pressure : / mmHG Vent. Rate : 088 BPM Atrial Rate : 088 BPM P-R Int : 188 ms QRS Dur : 080 ms QT Int : 410 ms P-R-T Axes : 009 149 167 degrees QTc Int : 496 ms Sinus rhythm with Premature atrial complexes Possible Left atrial enlargement Left posterior fascicular block Cannot rule out Inferior infarct , age undetermined Prolonged QT Nonspecific ST and T wave abnormality Abnormal ECG When compared with ECG of 17-SEP-2019 22:55, Premature atrial complexes are now Present QRS axis Shifted right Minimal criteria for Inferior infarct are now Present Confirmed by Andres Farr ([id number]) on 11/25/2021 6:58:31 AM Referred By: Lissett Holley Confirmed By:Andres Farr
[2021-11-25] MEDS: ADEMPAS 2.5 MG PO SCH ×2 (08:06→13:37)
[2021-11-25] MEDS: INSULIN ASPART PER UNIT SC SCH ×3 (08:09→17:05)
--- NOTE | 2021-11-25 08:33 | Emergency Department Note ---
Impression & Plan Hypokalemia, Chronic CHF (congestive heart failure), O2 dependent, Pulmonary hypertension, Morbid obesity with BMI of 50.0-59.9, adult ED Provider Note CHIEF COMPLAINT: Hypokalemia HISTORY OF PRESENT ILLNESS: This 45-year-old female patient presents to the emergency department with complaints of hypokalemia. Pt is complaining of CORONA and muscle aches. She has a history of pulmonary hypertension and is chronically O2 dependent. Patient is on diuretics and had routine blood work with her PCP. She was noted to be hypokalemic to 2.4 and referred to the emergency department. Patient states nothing has changed recently with the exception of her potassium prescription. Her doctor "made the pills smaller but not the dose." Patient denies any vomiting or diarrhea. She states she has b een compliant with the medication. She has not had any palpitations, chest pain or worsening of her shortness of breath. REVIEW OF SYSTEMS: A review of systems was performed with positives and pe rtinent negatives listed in the history of present illness. 10 systems were reviewed and are otherwise negative. ALLERGIES: see below MEDICATIONS: see below PMH: see below SOCIAL HISTORY: see below DDx: diuretic effect, renal failure, dehydration, PHYSICAL EXAM: Vital signs reviewed. General: Chronically ill appearing 45 yo female, morbidly obese, in no significant distress. HEENT: No scleral icterus, PERRLA, neck supple. Atraumatic. Cardiovascular: Regular rate and rhythm, no extra sounds. Pulmonary: Clear to auscultation bilaterally, normal work of breathing. On nasal cannula oxygen Abdomen: Soft, nontender, nondistended, positive bowel sounds. Musculoskeletal: Atraumatic, no peripheral edema. Neurologic: Patient awake alert and oriented x 3 Skin: Warm, dry, no rash EMERGENCY DEPARTMENT COURSE/MDM: This patient was evaluated and appeared to be in no significant distress. IV access was obtained and laboratory work was drawn. She was placed on a environmental monitoring technician and noted to be in normal sinus rhythm patient's laboratory work was repeated and potassium is noted to be 2.2. Patient was given 20 MEQ of potassium IV and 40 MEQ of potassium by mouth. Given the profound depletion of the potassium, the patient will require hospitalization for repletion and repeat laboratory work. The hospitalist service was consulted for further management. The patient is aware of the plan and agrees. MONITORING: An order for cardiac monitoring was placed and the patient is noted to be in a sinus rhythm with PACs at 88 beats per minute. RADIOLOGY: see below EKG: sinus rhythm left posterior fascicular block at 88 bpm. Left atrial enlargement. T wave abnormality with prolonged QT interval of 496. Inferior Q waves. DISPOSITION: Admission Past Med/Surg History Medical History Acute and chronic respiratory failure Acute asthma exacerbation Asthma Bronchitis HTN (hypertension) Microcytic anemia Morbid obesity with BMI of 60.0-69.9, adult On home O2 Pulmonary embolism Pulmonary hypertension Surgical History History of embolectomy Family History Other No pertinent family history Social History Smoking Status: Never smoker Hx Alcohol Use: No Hx Substance Use: No Preferred Language: Portuguese Communication Ability: Effective Visual Impairment: No Limitations Hearing Ability: Normal [employer] Sales Representative Required: No Beliefs That Will Affect Care: None marital status: Single Current Living Situation: Alone Feels Safe at Home: Yes Assistive Devices: Oxygen - Continuous Allergies Allergies Allergy/AdvReac Type Severity Reaction Status Date / Time codeine Allergy Unknown unknown Verified 11/24/21 16:01 Penicillins Allergy Unknown unknown Verified 11/24/21 16:01 Home Meds Home Medications Medication Instructions Recorded Confirmed albuterol sulfate 90 mcg/actuation 2 puff INHALATION QID PRN 09/30/18 11/24/21 aerosol inhaler (Ventolin HFA) ferrous sulfate 325 mg (65 mg 325 mg PO DAILY 09/30/18 11/24/21 iron) tablet omeprazole 20 mg capsule,delayed 20 mg PO DAILY 09/30/18 11/24/21 release riociguat 2.5 mg tablet 2.5 mg PO TID 09/30/18 11/24/21 bumetanide 1 mg tablet 2 mg PO BID 09/17/19 11/24/21 metformin 750 mg tablet,extended 750 mg PO DAILY 11/24/21 11/24/21 release 24 hr metolazone 2.5 mg tablet 2.5 mg PO DIRECTED 11/24/21 11/24/21 potassium chloride 10 mEq 20 meq PO BID 11/24/21 11/24/21 tablet,extended release topiramate 50 mg tablet 50 mg PO DAILY 11/24/21 11/24/21 tramadol 50 mg tablet 50 mg PO DAILY PRN 11/24/21 11/24/21 warfarin 7.5 mg tablet (Jantoven) 8.5 mg PO DAILY 11/24/21 11/24/21 Previous Rx's Medication Instructions Recorded magnesium oxide 400 mg (241.3 mg 400 mg PO QAM #30 tab 11/25/21 magnesium) tablet spironolactone 100 mg tablet 100 mg PO QAM #30 tab 11/25/21 Results & Data (ED) Vital Signs Vital Signs - 24 hr 11/24/21 12:53 11/24/21 12:56 11/24/21 13:35 Temperature 37.0 C Temperature Source Oral Pulse Rate 93 H 88 Pulse Rate [Right Radial] 93 H Pulse Rhythm Regular Regular Pulse Rhythm [Right Radial] Regular Pulse Strength Normal Pulse Strength [Right Radial] Normal Respiratory Rate 20 20 14 Respiratory Effort / Characteristics Non-Labored Non-Labored Respiratory Depth Normal Normal Respiratory Pattern Regular Regular Blood Pressure 128/105 H Blood Pressure [Left Arm] 128/105 H Blood Pressure Mean 112 Blood Pressure Mean [Left Arm] 112 Blood Pressure Position Lying Blood Pressure Position [Left Arm] Lying Pulse Oximetry 100 100 97 Oxygen Delivery Method Nasal Cannula Nasal Cannula Room Air Oxygen Flow Rate 6 6 Sepsis Recent Fever Within 48 Hours No Sepsis New/Unexplained Change in Mental Status No Sepsis Action Taken by Nursing No Action Required 11/24/21 14:43 11/24/21 16:00 11/24/21 18:00 Temperature Temperature Source Pulse Rate Pulse Rate [Right Radial] 83 91 H 86 Pulse Rhythm Pulse Rhythm [Right Radial] Regular Regular Pulse Strength Pulse Strength [Right Radial] Normal Normal Respiratory Rate 14 15 14 Respiratory Effort / Characteristics Non-Labored Non-Labored Non-Labored Respiratory Depth Normal Normal Normal Respiratory Pattern Regular Regular Blood Pressure Blood Pressure [Left Arm] 93/72 L 107/77 106/78 Blood Pressure Mean Blood Pressure Mean [Left Arm] 79 87 87 Blood Pressure Position Blood Pressure Position [Left Arm] Lying Lying Pulse Oximetry 98 98 100 Oxygen Delivery Method Room Air Nasal Cannula Nasal Cannula Oxygen Flow Rate 2 2 2 Sepsis Recent Fever Within 48 Hours Sepsis New/Unexplained Change in Mental Status Sepsis Action Taken by [facility] Medications Current Medication List: was personally reviewed by me Laboratory Data Attestation: I reviewed the patient's lab results. Result diagrams: 11/24/21 13:43 11/25/21 16:32 Lab Results 11/24/21 11/24/21 11/24/21 Range/Units 13:43 13:43 13:43 WBC 9.60 (4.8-10.8) K/uL RBC 4.66 (4.2-5.4) M/uL Hgb 11.5 L (12.0-16.0) g/dL Hct 36.8 L (37-47) % MCV 79.0 L (80-100) fL MCH 24.7 L (25-34) pg MCHC 31.3 L (32-36) g/dL RDW Std Deviation 52.1 H (36.4-46.3) fL RDW Coeff of Malinda 18.2 H (11.5-14.5) % Plt Count 401 H (130-400) K/uL MPV 10.1 (7.4-10.4) fL Immature Gran % (Auto) 0.2 % Neut % (Auto) 76.3 % Lymph % (Auto) 16.9 % Prairie % (Auto) 5.4 % Eos % (Auto) 1.1 % Baso % (Auto) 0.1 % Neut # (Auto) 7.32 H (1.4-6.5) K/uL Lymph # (Auto) 1.62 (1.2-3.4) K/uL [place] # (Auto) 0.52 (0.11-0.59) K/uL Eos # (Auto) 0.11 (0-0.5) K/uL Baso # (Auto) 0.01 (0-0.2) K/uL Immature Gran # (Auto) 0.02 (0.00-0.02) K/uL PT 24.4 H (9.0-12.0) Seconds INR 2.6 H (0.9-1.1) Sodium 138 (136-145) mmol/L Potassium 2.2 L* (3.5-5.1) mmol/L Chloride 89 L (98-107) mmol/L Carbon Dioxide 40 H (21-32) mmol/L Anion Gap 9 (3-11) BUN 17 (6-23) mg/dl Creatinine 1.19 (0.6-1.2) mg/dl Est Cr Clr Drug Dosing 99.6 ml/min Est GFR ( Amer) 64.3 ml/min Est GFR (Non-Af Amer) 55.5 ml/min BUN/Creatinine Ratio 14.3 (10-20) Glucose 126 H (70-99(Fasting)) mg/dl Calcium 9.9 (8.5-10.1) mg/dl Magnesium 1.9 (1.7-2.4) mg/dl Total Bilirubin 0.5 (0.2-1.0) mg/dl AST 25 (13-39) U/L ALT 18 (7-52) U/L Alkaline Phosphatase 57 (34-104) U/L Total Protein 8.6 H (6.0-8.3) gm/dl Albumin 4.1 (3.4-5.0) gm/dl Globulin 4.5 H (2.5-4.0) gm/dl Albumin/Globulin Ratio 0.9 (0.9-2) TSH (0.300-4.500) uIu/ml Urine Color Urine Appearance (Clear) Urine pH (4.5-7.5) Ur Specific [place] (1.000-1.030) Urine Protein (Negative) Urine Glucose (UA) (Negative) Urine Ketones (Negative) Urine Blood (Negative) Urine Nitrite (Negative) Urine Bilirubin (Negative) Urine Urobilinogen (Negative) Ur Leukocyte Esterase (Negative) Urine WBC (Auto) (0-5) /hpf Urine RBC (Auto) (0-4) /hpf U Hyaline Cast (Auto) (0-5) /lpf U Epithel Cells (Auto) (0-5) /lpf Urine Bacteria (Auto) (Negative) Ur Renal Epithelial Cell Urine Mucus (None Prsent) SARS-CoV-2, RNA, NAAT (NEGATIVE) 11/24/21 11/24/21 11/24/21 Range/Units 13:43 15:22 16:05 WBC (4.8-10.8) K/uL RBC (4.2-5.4) M/uL Hgb (12.0-16.0) g/dL Hct (37-47) % MCV (80-100) fL MCH (25-34) pg MCHC (32-36) g/dL RDW Std Deviation (36.4-46.3) fL RDW Coeff of Malinda (11.5-14.5) % Plt Count (130-400) K/uL MPV (7.4-10.4) fL Immature Gran % (Auto) % Neut % (Auto) % Lymph % (Auto) % [place] % (Auto) % Eos % (Auto) % Baso % (Auto) % Neut # (Auto) (1.4-6.5) K/uL Lymph # (Auto) (1.2-3.4) K/uL [place] # (Auto) (0.11-0.59) K/uL Eos # (Auto) (0-0.5) K/uL Baso # (Auto) (0-0.2) K/uL Immature Gran # (Auto) (0.00-0.02) K/uL PT (9.0-12.0) Seconds INR (0.9-1.1) Sodium (136-145) mmol/L Potassium (3.5-5.1) mmol/L Chloride (98-107) mmol/L Carbon Dioxide (21-32) mmol/L Anion Gap (3-11) BUN (6-23) mg/dl Creatinine (0.6-1.2) mg/dl Est Cr Clr Drug Dosing ml/min Est GFR ( Amer) ml/min Est GFR (Non-Af Amer) ml/min BUN/Creatinine Ratio (10-20) Glucose (70-99(Fasting)) mg/dl Calcium (8.5-10.1) mg/dl Magnesium (1.7-2.4) mg/dl Total Bilirubin (0.2-1.0) mg/dl AST (13-39) U/L ALT (7-52) U/L Alkaline Phosphatase (34-104) U/L Total Protein (6.0-8.3) gm/dl Albumin (3.4-5.0) gm/dl Globulin (2.5-4.0) gm/dl Albumin/Globulin Ratio (0.9-2) TSH 2.391 (0.300-4.500) uIu/ml Urine Color Dark Yellow Urine Appearance Clear (Clear) Urine pH 6.0 (4.5-7.5) Ur Specific [place] 1.036 H (1.000-1.030) Urine Protein Trace H (Negative) Urine Glucose (UA) Negative (Negative) Urine Ketones Trace H (Negative) Urine Blood Negative (Negative) Urine Nitrite Negative (Negative) Urine Bilirubin 1+ H (Negative) Urine Urobilinogen Negative (Negative) Ur Leukocyte Esterase Negative (Negative) Urine WBC (Auto) 1-5 (0-5) /hpf Urine RBC (Auto) 0-4 (0-4) /hpf U Hyaline Cast (Auto) 5-10 H (0-5) /lpf U Epithel Cells (Auto) >30 H (0-5) /lpf Urine Bacteria (Auto) 2+ H (Negative) Ur Renal Epithelial Cell Not Reportable Urine Mucus Present A (None Prsent) SARS-CoV-2, RNA, NAAT NEGATIVE (NEGATIVE) 11/24/21 Range/Units 16:40 WBC (4.8-10.8) K/uL RBC (4.2-5.4) M/uL Hgb (12.0-16.0) g/dL Hct (37-47) % MCV (80-100) fL MCH (25-34) pg MCHC (32-36) g/dL RDW Std Deviation (36.4-46.3) fL RDW Coeff of Malinda (11.5-14.5) % Plt Count (130-400) K/uL MPV (7.4-10.4) fL Immature Gran % (Auto) % Neut % (Auto) % Lymph % (Auto) % [place] % (Auto) % Eos % (Auto) % Baso % (Auto) % Neut # (Auto) (1.4-6.5) K/uL Lymph # (Auto) (1.2-3.4) K/uL [place] # (Auto) (0.11-0.59) K/uL Eos # (Auto) (0-0.5) K/uL Baso # (Auto) (0-0.2) K/uL Immature Gran # (Auto) (0.00-0.02) K/uL PT (9.0-12.0) Seconds INR (0.9-1.1) Sodium 139 (136-145) mmol/L Potassium 2.4 L* (3.5-5.1) mmol/L Chloride 90 L (98-107) mmol/L Carbon Dioxide 40 H (21-32) mmol/L Anion Gap 9 (3-11) BUN 16 (6-23) mg/dl Creatinine 1.14 (0.6-1.2) mg/dl Est Cr Clr Drug Dosing 104.0 ml/min Est GFR ( Amer) 67.7 ml/min Est GFR (Non-Af Amer) 58.4 ml/min BUN/Creatinine Ratio 14.0 (10-20) Glucose 131 H (70-99(Fasting)) mg/dl Calcium 9.8 (8.5-10.1) mg/dl Magnesium (1.7-2.4) mg/dl Total Bilirubin (0.2-1.0) mg/dl AST (13-39) U/L ALT (7-52) U/L Alkaline Phosphatase (34-104) U/L Total Protein (6.0-8.3) gm/dl Albumin (3.4-5.0) gm/dl Globulin (2.5-4.0) gm/dl Albumin/Globulin Ratio (0.9-2) TSH (0.300-4.500) uIu/ml Urine Color Urine Appearance (Clear) Urine pH (4.5-7.5) Ur Specific [place] (1.000-1.030) Urine Protein (Negative) Urine Glucose (UA) (Negative) Urine Ketones (Negative) Urine Blood (Negative) Urine Nitrite (Negative) Urine Bilirubin (Negative) Urine Urobilinogen (Negative) Ur Leukocyte Esterase (Negative) Urine WBC (Auto) (0-5) /hpf Urine RBC (Auto) (0-4) /hpf U Hyaline Cast (Auto) (0-5) /lpf U Epithel Cells (Auto) (0-5) /lpf Urine Bacteria (Auto) (Negative) Ur Renal Epithelial Cell Urine Mucus (None Prsent) SARS-CoV-2, RNA, NAAT (NEGATIVE) Administered Medications Discontinued Medications Acetaminophen (Acetaminophen 325 Mg Tab) 650 mg PO Q4H PRN PRN Reason: pain/fever Stop: 12/24/21 22:09 Last Admin: 11/25/21 01:26 Dose: 650 mg Documented by: [id number] Ferrous Sulfate (Ferrous Sulfate 325 Mg Tab) 325 mg PO DAILY LEON Stop: 12/25/21 08:59 Last Admin: 11/25/21 08:05 Dose: 325 mg Documented by: [id number] Potassium Chloride (K Chi / Wtr) 10 meq in 100 mls @ 100 mls/hr IV Q1H LEON; Protocol Stop: 11/24/21 15:29 Last Infusion: 11/24/21 16:33 Dose: 0 mls/hr Documented by: [id number] Admin: 11/24/21 15:20 Dose: 100 mls/hr Documented by: [id number] Infusion: 11/24/21 15:20 Dose: 100 mls/hr Documented by: [id number] Admin: 11/24/21 14:26 Dose: 100 mls/hr Documented by: [id number] Insulin Aspart (Insulin Aspart Per Unit) 0 units SC ACHS LEON Stop: 12/25/21 07:29 Last Admin: 11/25/21 17:05 Dose: Not Given Documented by: [id number] Admin: 11/25/21 12:38 Dose: Not Given Documented by: [id number] Admin: 11/25/21 08:09 Dose: 1 units Documented by: [id number] Cosigned by: [id number] Magnesium Oxide (Magnesium Oxide 400 Mg Tab) 400 mg PO QAM LEON Stop: 12/24/21 22:59 Last Admin: 11/25/21 08:05 Dose: 400 mg Documented by: [id number] Admin: 11/25/21 00:29 Dose: 400 mg Documented by: [id number] *Adempas 2.5 Mg*Non- Formulary Patient's Own Med 1 ea PO TID LEON; Protocol Stop: 12/25/21 08:59 Last Admin: 11/25/21 13:37 Dose: 2.5 mg Documented by: [id number] Admin: 11/25/21 08:06 Dose: 2.5 mg Documented by: [id number] Pantoprazole Sodium (Pantoprazole 40 Mg Tab) 40 mg PO DAILY LEON; Protocol Stop: 12/25/21 08:59 Last Admin: 11/25/21 08:05 Dose: 40 mg Documented by: [id number] Pneumococcal Polyvalent Vaccine (Pneumococcal Polysaccharides 25 Mcg/0.5 Ml Vial/Syr) 25 mcg IM .ONCE ONE Stop: 11/25/21 09:01 Last Admin: 11/25/21 08:25 Dose: 25 mcg Documented by: [id number] Potassium Chloride (Potassium Chloride 20 Meq/15 Ml Udc) 40 meq PO NOW STA Stop: 11/24/21 15:19 Last Admin: 11/24/21 16:15 Dose: 40 meq Documented by: [id number] Potassium Chloride (Potassium Chloride 10 Meq Tabcr) 20 meq PO QID [facility] Stop: 12/24/21 22:59 Last Admin: 11/25/21 17:07 Dose: 20 meq Documented by: [id number] Admin: 11/25/21 12:42 Dose: 20 meq Documented by: [id number] Admin: 11/25/21 08:06 Dose: 20 meq Documented by: [id number] Admin: 11/25/21 00:28 Dose: 20 meq Documented by: [id number] Potassium Chloride (Potassium Chloride Crtab 20 Meq Tabcr) 20 meq PO NOW STA Stop: 11/24/21 23:08 Last Admin: 11/25/21 00:33 Dose: 20 meq Documented by: [id number] Potassium Chloride (Potassium Chloride Crtab 20 Meq Tabcr) 40 meq PO NOW STA Stop: 11/25/21 10:56 Last Admin: 11/25/21 11:06 Dose: 40 meq Documented by: [id number] Potassium Chloride (Potassium Chloride Crtab 20 Meq Tabcr) 40 meq PO ONE ONE Stop: 11/25/21 13:01 Last Admin: 11/25/21 12:42 Dose: 40 meq Documented by: [id number] Spironolactone (Spironolactone 25 Mg Tab) 25 mg PO NOW ONE Stop: 11/24/21 23:01 Last Admin: 11/25/21 00:29 Dose: 25 mg Documented by: [id number] Spironolactone (Spironolactone 100 Mg Tab) 100 mg PO QAM [facility] Stop: 12/25/21 08:59 Last Admin: 11/25/21 08:06 Dose: 100 mg Documented by: [id number] Topiramate (Topiramate 50 Mg Tab) 50 mg PO DAILY [facility] [place] Stop: 12/25/21 08:59 Last Admin: 11/25/21 08:06 Dose: 50 mg Documented by: [id number] Warfarin Sodium (Warfarin Sod 7.5 Mg Tab) 7.5 mg PO DAILY@1600 [facility] Stop: 12/25/21 15:59 Last Admin: 11/25/21 16:03 Dose: 7.5 mg Documented by: [id number] Warfarin Sodium (Warfarin Sod 1 Mg Tab) 1 mg PO DAILY@1600 LEON Stop: 12/25/21 15:59 Last Admin: 11/25/21 16:01 Dose: 1 mg Documented by: [id number] Imaging Data Radiologist's Impression: Chest X-Ray 11/24/21 13:28 XR chest 1V portable CLINICAL HISTORY: Weakness. COMPARISON STUDY: Chest radiograph September 17, 2019. FINDINGS: Median sternotomy wires are noted. Cardiomegaly is unchanged. There is no pneumothorax or pleural effusion. Interstitial prominence is unchanged. There is no evidence for overt pulmonary edema. No consolidation is identified to suggest pneumonia. A few nodular densities within the left upper lung are unchanged. These are probably benign. IMPRESSION: 1. No acute findings. No significant change in appearance of the chest. 2. Stable cardiomegaly and interstitial prominence without overt pulmonary edema. 3. No change in several nodular densities within the left upper lung. These are probably benign but can be assessed on subsequent exams to ensure stability. ACT 112: Negative or not required by law. Electronically signed by: Daniele Campos M.D. 11/24/2021 1:50 PM Blood Pressure Blood Pressure Findings: Normal blood pressure Blood Pressure Disposition: did not require urgent referral Discharge Plan Visit Data Chief Complaint: Abnormal Labs/Diagnostic Testing Stated Complaint: ABNORMAL LABS ED Provider: Saritha Shepard Discharge Problem: Hypokalemia, Chronic CHF (congestive heart failure), O2 dependent, Pulmonary hypertension, Morbid obesity with BMI of 50.0-59.9, adult Patient Disposition: Admitted As Inpatient Discharge Instructions Interventions: ED Discharge Assessment Last Done: 11/24/21 21:48 Discharge Problem: Chronic CHF (congestive heart failure) Qualifiers: Heart failure type: unspecified Qualified Code(s): I50.9 - Heart failure, unspecified
[2021-11-25 08:44] LABS: INR 2.2 (0.9-1.1); Prothrombin Time 20.7 Seconds (9.0-12.0)
[2021-11-25 08:57] LABS: BUN Creatinine Ratio 14.7 (10-20); Calcium 9.7 mg/dl (8.5-10.1); Creatinine Clr Calc Pharmacy 115.7 ml/min; Est GFR (African American) 77.5 ml/min; Est GFR (Non-African American) 66.8 ml/min; Magnesium 2.2 mg/dl (1.7-2.4)
[2021-11-25] MEDS ORDERED: NON-FORMULARY MEDICATION (Metformin 750 mg tablet extended release 24 hr) PO SCH (09:00)
[2021-11-25] MEDS ORDERED: FERROUS SULFATE 325 MG TAB PO SCH (09:00)
[2021-11-25] MEDS ORDERED: PANTOprazole 40 MG TAB PO SCH (09:00)
[2021-11-25] MEDS ORDERED: PNEUMOCOCCAL POLYSACCHARIDES 25 MCG/0.5 ML VIAL/SYR IM ONE (09:00)
[2021-11-25] MEDS ORDERED: SPIRONOLACTONE 100 MG TAB PO SCH (09:00)
[2021-11-25] MEDS ORDERED: TOPIRAMATE 50 MG TAB PO SCH (09:00)
[2021-11-25 09:22] LABS: Estimated Average Glucose 169 mg/dl; Hemoglobin A1C 7.5 % (4.5-5.6)
[2021-11-25] MEDS ORDERED: POTASSIUM CHLORIDE CRTAB 20 MEQ TABCR PO STA (10:55)
[2021-11-25] MEDS ORDERED: POTASSIUM CHLORIDE CRTAB 20 MEQ TABCR PO ONE (13:00)
[2021-11-25] MEDS ORDERED: WARFARIN SOD 1 MG TAB PO SCH (16:00)
[2021-11-25] MEDS ORDERED: WARFARIN SOD 7.5 MG TAB PO SCH (16:00)
--- NOTE | 2021-11-25 17:48 | Discharge Summary ---
Date of Service November 25, 2021 Principal Diagnosis hypokalemia Discharge Exam gen aao [place] [facility] at mmm breathing unlabored no accessory muscles good effort skin no rashes no pallor or icterus neuro no focal deficits Discharge Data Allergies Allergy/AdvReac Type Severity Reaction Status Date / Time codeine Allergy Unknown unknown Verified 11/24/21 16:01 Penicillins Allergy Unknown unknown Verified 11/24/21 16:01 Consultations 11/24/21 15:49 ED Decision to Admit Stat Hospital Course (1) Hypokalemia: Probably due to potassium wasting from diuretics exceeding replacement. Wondered if magnesium might play a roleshe was taking mag as it relates to her migraines and stopped maybe 2 months ago, wondered if mag acting as a cofactor for K retention might play a roleI doubt it given that her mag normal, but will replace with 400 mag oxide daily to help w migraines and maybe help w K retention some Given the context, unlikely to be any sort of renal potassium wasting syndrome. Obviously if this persists may need to consider for that Given her difficulty with taking oral potassium, her rather high diuretic dosing requirement, and her CHF diagnosisWill add/titrate spironolactoneas it may help her CHF, and will likely make things easier for her as far as potassium management K improving, symptoms much improved -- therefore safe/stable for home - close and frequent/recurrent outpt BMPs (2) Chronic right-sided congestive heart failure: Continue home diuretics, adding spironolactone as above (3) Pulmonary embolism: Continue anticoagulation, INR therapeutic (4) Asthma: PE, asthma, suspected OHScontinue home O2 for chronic hypoxic respiratory failure (5) HTN (hypertension): Continue home medswhich is essentially a diuretic regimen (6) DVT prophylaxis: Anticoagulated for PE (7) Discharge planning issues: home, close outpt f/u, serial BMPs Total Time Total Time Spent Total Time Spent (In Minutes): <30 Discharge Plan Discharge Items Patient Disposition: Home - Self-Care Reason For Visit: HYPOKALEMIA Discharge Diagnosis: hypokalemia (low potassium) Activity: Resume your previous activity Non-emergency contact: Primary Care Provider Call non-emergency contact if: you have any medication questions Follow-up/Referrals: Lissett Holley DO [Primary Care Provider] - Diet: Low Sodium (2gm) Addtl Attending Provider Instructions: Hypokalemia (low potassium) -After review, it seems like the most likely reason that your potassium was fairly low was just with the diuretics that you are on, compared to the supplementation you were taking, you were probably "spending more than you earn" as it relates to potassium -Since the potassium pills are fairly difficult to tolerate, it seems cruel to remedy this by increasing her potassium dose. Spironolactone, as an adjunct of diuretic that can be complementary to the Bumex, actually helps her kidneys retain potassiumand so it is quite likely that with the potassium supplementation that you are on, combined with a dose of spironolactone, your levels should more likely be able to stay normal -This is always a bit of an "inexact science" and so the only way to really be able to tell that we have you on the right balance will be to follow lab workto that and Dr. Holley will check lab work (basic metabolic panel) this coming week, and likely weekly for several weeks to make sure her levels stay decent. If they are moving lower, first she would likely increase the dose of spi ronolactone, before needing to have you take more potassium -We will also have you on magnesium oxide 400 mg once a daythis can sometimes help your kidneys retain potassium a bit more, and may help with the migraines some too Pending Studies at Discharge: No Stand-Alone Forms: My [facility], Smoking Cessation Medications and DC Order Prescriptions: New spironolactone 100 mg Tablet 100 mg PO QAM Qty: 30 RF: 0 magnesium oxide 400 mg (241.3 mg magnesium) Tablet 400 mg PO QAM Qty: 30 RF: 0 Continued ferrous sulfate 325 mg (65 mg iron) Tablet 325 mg PO DAILY RF: 0 omeprazole 20 mg Capsule,Delayed Release(Dr/Ec) 20 mg PO DAILY RF: 0 albuterol sulfate [Ventolin HFA] 90 mcg/actuation Hfa Aerosol Inhaler 2 puff INHALATION QID PRN (Reason: Shortness Of Breath) RF: 0 riociguat 2.5 mg tablet 2.5 mg PO TID RF: 0 bumetanide 1 mg tablet 2 mg PO BID RF: 0 metolazone 2.5 mg tablet 2.5 mg PO DIRECTED RF: 0 warfarin [Jantoven] 7.5 mg tablet 8.5 mg PO DAILY RF: 0 potassium chloride 10 mEq tablet extended release 20 meq PO BID RF: 0 tramadol 50 mg tablet 50 mg PO DAILY PRN (Reason: Pain) RF: 0 metformin 750 mg tablet extended release 24 hr 750 mg PO DAILY RF: 0 topiramate 50 mg tablet 50 mg PO DAILY RF: 0 Discharge Orders: Discharge Order (Routine); Ordered 11/25/21 Ordered By: Joshua Santiago/Other Patient Handouts: Diabetes: Meal Planning, Type 2 Diabetes Admission Data Admit Date/Time: 11/24/21 19:50 Attending Provider: Joshua Tang Admit Provider: Joshua Tang Primary Care Provider: Lissett Holley Other Providers: Kaushal Zuñiga Coding Level of Care Code D/C DAY MANAGEMENT <30 MINS Diagnoses Hypokalemia E87.6 Chronic right-sided congestive heart failure I50.812 Pulmonary embolism I26.99 Acute cor pulmonale presence: without acute cor pulmonale Chronicity: chronic Asthma J45.909 HTN (hypertension) I10 DVT prophylaxis Z29.9 Discharge planning issues Z02.9
[2021-11-25 17:50] LABS: BUN Creatinine Ratio 13.8 (10-20); Calcium 9.8 mg/dl (8.5-10.1); Creatinine Clr Calc Pharmacy 125.6 ml/min; Est GFR (African American) 85.5 ml/min; Est GFR (Non-African American) 73.8 ml/min; Potassium 2.8 mmol/L (3.5-5.1)
== END 2021-11-25 19:11 | disposition home or self-care (01) | DRG 641 ==
LOC: ED 12:39 → 2N 19:50
DX: I27.82 Chronic pulmonary embolism; Z99.81 Dependence on supplemental oxygen; Z68.43 Body mass index [BMI] 50.0-59.9, adult; Z88.0 Allergy status to penicillin; I50.812 Chronic right heart failure; Z79.899 Other long term (current) drug therapy; I27.20 Pulmonary hypertension, unspecified; E87.6 Hypokalemia; Z88.5 Allergy status to narcotic agent; Z79.01 Long term (current) use of anticoagulants; E66.01 Morbid (severe) obesity due to excess calories; Z79.84 Long term (current) use of oral hypoglycemic drugs; D50.9 Iron deficiency anemia, unspecified; J96.11 Chronic respiratory failure with hypoxia

== ENCOUNTER 2023-02-06 13:45 | Inpatient (IN) ==
--- NOTE | 2023-02-06 14:09 | Emergency Department Note ---
Impression & Plan Pneumonia, Pulmonary hypertension, CHF (congestive heart failure) ED Provider Note NAME: FERNANDO LAWSON AGE: 47 SEX: F : 1975 ARRIVES VIA: Ambulance INFORMANT: Patient, ED PROVIDER(S): Gee Daniel MD CHIEF COMPLAINT: MEDICAL DECISION MAKING: Patient presents due to concern for worsening shortness of breath associated cough. IV was established blood work was obtained and the patient did receive her typical Bumex and potassium. We currently do not have Adempas on formulary. her pulmonary hypertension medication. The patient has a normal white counts normal hemoglobin. Thrombocytosis of 450. Kidney function with a creat of 1.3. Initial potassium of 2.8. Patient did receive 30 of p.o. potassium as is which normally takes at home. The patient did receive 2 of the Bumex. Sodium 135. Magnesium normal. Patient's bio fire is negative. Chest x-ray with pneumonia. Given this with the patient's significant comorbidities I did speak the on-call hospitalist service Bar Hurley PA-C and the patient was admitted by Dr. Smyth. INR therapeutic at 2.4 Prior /Outside records reviewed: I did review the patient's most recent TTE completed September 2022. The patient has normal left ventricular size and systolic function EF of 60 to 65%. Mild concentric LVH septal flattening during diastole and systole suggestive of RV volume and pressure overload. Severe pulmonary hypertension noted. Moderate to severe tricuspid regurg and mild mitral regurg. From compared to study from September 2010 right metrical is now more dilated with more severe reduced systolic function. Tricuspid regurg based on this echo report was noted moderate to severe from prior. Differential diagnosis: Reactive airway disease, pneumonia, pneumothorax, COPD, CHF, infections, cardiac ischemia, pulmonary embolism, musculoskeletal, gastrointestinal, as well as other pathologies. Diagnostics, as interpreted by me: ECG: Normal sinus rhythm, rate of 99 normal intervals right axis deviation T wave inversion in V2 no ST elevations. Cardiac monitoring: An order was placed for continuous cardiac monitoring. The monitor shows a rate of 92 with sinus rhythm. Patient was placed on pulse oximetry Medical decision rules: None Imaging studies: See below HPI: Patient presents due to concern for shortness of breath. The patient states that her symptoms began on Sunday and had associated cough with productive sputum that was yellow. The patient has complained worsening shortness of breath. Patient states she is compliant with her medications. Patient did have a balloon angioplasty of her pulmonary arteries completed at [facility] in mid January. Patient denies any leg swelling or calf pain. Patient is currently compliant with her Coumadin. The patient did not take her morning meds today. Patient did notice worsening respiratory difficulty today was brought in via ambulance. The patient states that she has intermittently increased her oxygen over the weekend is typically on 6 L at all times. PAST MEDICAL HISTORY: See Below PAST SURGICAL HISTORY: See Below SOCIAL HISTORY: See Below HOME MEDICATIONS: See Below ALLERGIES: See Below VITALS: See Below PHYSICAL EXAMINATION: GENERAL: NAD, wearing a mask, non-toxic. Wearing glasses. Nasal bubble cannula in place EYE EXAM: Normal conjunctiva. PERRL, no anisocoria and EOM's grossly intact w/o pain. NECK: Supple, no nuchal rigidity, no adenopathy, non-tender. No signs of meningismus. FROM of the neck with good chin to chest and neck extension. No stridor. LUNGS: Coarse sounds bilaterally more prominent the right compared to the left chest normal chest wall mechanics. HEART: NSR, no MRG. ABDOMEN: Abdomen soft, non-tender, no masses, no rebound or guarding. BACK: No CVA TTP. SKIN: No rashes and no bruising. UPPER EXTREMITIES: Upper extremities are grossly normal. LOWER EXTREMITIES: Grossly normal, no edema. Negative Homans' sign bilaterally NEURO EXAM: A&O x3, cranial nerves II-XII grossly intact, normal speech, moves all 4 extremities. Past Med/Surg History Medical History (Updated 02/06/23 @ 23:36 by Gee Daniel MD) Acute and chronic respiratory failure Acute asthma exacerbation Asthma Bronchitis HTN (hypertension) Microcytic anemia Morbid obesity with BMI of 60.0-69.9, adult On home O2 Pulmonary embolism Pulmonary hypertension Surgical History History of embolectomy Family History Other No pertinent family history Social History Smoking Status: Never smoker Hx Alcohol Use: No Hx Substance Use: No Preferred Language: Greenlandic Communication Ability: Effective Visual Impairment: No Limitations Hearing Ability: Normal Supervisor Cured Meats Required: No Beliefs That Will Affect Care: None marital status: Single Current Living Situation: Alone Other Information That Helps Us Care for You: No Feels Safe at Home: Yes Safety Concerns: Feels Safe At This Time Assistive Devices: Glasses and Oxygen - Continuous Allergies Allergies Allergy/AdvReac Type Severity Reaction Status Date / Time Penicillins Allergy Intermediate HIVES-EYES Verified 02/06/23 15:45 SWELLED codeine AdvReac Intermediate PASTED OUT Verified 02/06/23 15:45 Home Meds Home Medications Medication Instructions Recorded Confirmed ferrous sulfate 325 mg (65 mg 325 mg PO DAILY 09/30/18 02/06/23 iron) tablet omeprazole 20 mg capsule,delayed 20 mg PO BID 09/30/18 02/06/23 release riociguat 2.5 mg tablet 2.5 mg PO TID 09/30/18 02/06/23 metformin 750 mg tablet,extended 750 mg PO DAILY 11/24/21 02/06/23 release 24 hr metolazone 2.5 mg tablet 2.5 mg PO DIRECTED PRN 11/24/21 02/06/23 NEEDED PER MED LIST potassium chloride 10 mEq 40 meq PO TID 11/24/21 02/06/23 tablet,extended release topiramate 50 mg tablet 50 mg PO DAILY 11/24/21 02/06/23 tramadol 50 mg tablet 50 mg PO BID PRN Pain 11/24/21 02/06/23 warfarin 7.5 mg tablet (Jantoven) 7.5 mg PO QPM 11/24/21 02/06/23 berberine-herbal comb no.18 capsule 1 cap PO DAILY 02/06/23 02/06/23 bumetanide 2 mg tablet 3 mg PO BID 02/06/23 02/06/23 cetirizine 10 mg tablet 10 mg PO DAILY PRN Congestion 02/06/23 02/06/23 cholecalciferol (vitamin D3) 25 25 mcg PO DAILY 02/06/23 02/06/23 mcg (1,000 unit) capsule (Vitamin D3) cinnamon bark 500 mg capsule 500 mg PO DAILY 02/06/23 02/06/23 (Cinnamon) methylprednisolone 4 mg tablets in 0 mg PO DAILY 02/06/23 02/06/23 a dose pack prochlorperazine maleate 5 mg 5 mg PO TID PRN NAUSEA/VOMITING 02/06/23 02/06/23 tablet (Compazine) tirzepatide 5 mg/0.5 mL 5 mg subcut WK 02/06/23 02/06/23 subcutaneous pen injector (Mounjaro) vitamin B complex 1 tab PO DAILY 02/06/23 02/06/23 Results & Data (ED) Vital Signs Vital Signs - 24 hr 02/06/23 13:46 02/06/23 14:23 02/06/23 14:05 Temperature 36.6 C Temperature Source Oral Pulse Rate 102 H 90 Pulse Rate [Right Finger] Respiratory Rate 30 H Respiratory Effort / Characteristics Respiratory Depth Respiratory Pattern Blood Pressure 119/75 Blood Pressure [Right Arm] Blood Pressure Mean 89 Blood Pressure Mean [Right Arm] Blood Pressure Position [Right Arm] Pulse Oximetry 95 96 Oxygen Delivery Method Nasal Cannula Nasal Cannula Oxygen Flow Rate 6 6 Sepsis Recent Fever Within 48 Hours No Sepsis New/Unexplained Change in Mental Status N/A Sepsis Action Taken by Nursing Physician Notified 02/06/23 16:00 Temperature Temperature Source Pulse Rate Pulse Rate [Right Finger] 88 Respiratory Rate 21 Respiratory Effort / Characteristics Non-Labored Respiratory Depth Normal Respiratory Pattern Regular Blood Pressure Blood Pressure [Right Arm] 132/80 Blood Pressure Mean Blood Pressure Mean [Right Arm] 97 Blood Pressure Position [Right Arm] Sitting Pulse Oximetry 95 Oxygen Delivery Method Room Air Oxygen Flow Rate Sepsis Recent Fever Within 48 Hours Sepsis New/Unexplained Change in Mental Status Sepsis Action Taken by Long-Term Medications Current Medication List: was personally reviewed by me Laboratory Data Attestation: I reviewed the patient's lab results. 02/06/23 13:56 02/06/23 19:50 Lab Results 02/06/23 02/06/23 02/06/23 Range/Units 13:56 13:56 13:56 WBC 9.44 (4.8-10.8) K/ul RBC 5.67 H (4.20-5.40) M/uL Hgb 12.4 (12.0-16.0) g/dl Hct 40.3 (37.0-47.0) % MCV 71.1 L (80.0-100.0) fL MCH 21.9 L (25.0-34.0) pg MCHC 30.8 L (32.0-36.0) g/dL RDW Std Deviation 58.2 H (36.4-46.3) fL RDW Coeff of Malinda 23.8 H (11.5-14.5) % Plt Count 450 H (130-400) K/uL MPV 10.7 (9.4-12.4) fL Immature Gran % (Auto) 0.4 % Neut % (Auto) 68.3 % Lymph % (Auto) 22.6 % [place] % (Auto) 7.6 % Eos % (Auto) 0.8 % Baso % (Auto) 0.3 % Neut # (Auto) 6.44 (1.40-6.50) K/uL Lymph # (Auto) 2.13 (1.2-3.4) K/uL [place] # (Auto) 0.72 H (0.11-0.59) K/uL Eos # (Auto) 0.08 (0-0.50) K/uL Baso # (Auto) 0.03 (0-0.2) K/uL Immature Gran # (Auto) 0.04 (0.01-0.20) K/uL Polychromasia 1+ Anisocytosis Present Echinocytes 1+ PT 24.4 H (9.0-12.0) Seconds INR 2.4 H (0.9-1.1) APTT 34.6 H (21.0-31.0) Seconds PTT Ratio 1.3 Sodium (136-145) mmol/L Potassium (3.5-5.1) mmol/L Chloride (98-107) mmol/L Carbon Dioxide (21-32) mmol/L Anion Gap (3-11) BUN (6-23) mg/dl Creatinine (0.6-1.2) mg/dl Est Cr Clr Drug Dosing ml/min Est GFR ( Amer) ml/min Est GFR (Non-Af Amer) ml/min BUN/Creatinine Ratio (10-20) Glucose (70-99(Fasting)) mg/dl Calcium (8.6-10.3) mg/dl Magnesium (1.7-2.4) mg/dl Total Bilirubin (0.2-1.0) mg/dl AST (13-39) U/L ALT (7-52) U/L Alkaline Phosphatase (34-104) U/L Troponin I High Sens (0-14) pg/ml B-Natriuretic Peptide 28 (0-100) pg/ml Total Protein (6.0-8.3) gm/dl Albumin (3.4-5.0) gm/dl Globulin (2.5-4.0) gm/dl Albumin/Globulin Ratio (0.9-2) Procalcitonin (0-0.5) ng/ml 02/06/23 02/06/23 Range/Units 13:56 13:56 WBC (4.8-10.8) K/ul RBC (4.20-5.40) M/uL Hgb (12.0-16.0) g/dl Hct (37.0-47.0) % MCV (80.0-100.0) fL MCH (25.0-34.0) pg MCHC (32.0-36.0) g/dL RDW Std Deviation (36.4-46.3) fL RDW Coeff of Malinda (11.5-14.5) % Plt Count (130-400) K/uL MPV (9.4-12.4) fL Immature Gran % (Auto) % Neut % (Auto) % Lymph % (Auto) % [place] % (Auto) % Eos % (Auto) % Baso % (Auto) % Neut # (Auto) (1.40-6.50) K/uL Lymph # (Auto) (1.2-3.4) K/uL [place] # (Auto) (0.11-0.59) K/uL Eos # (Auto) (0-0.50) K/uL Baso # (Auto) (0-0.2) K/uL Immature Gran # (Auto) (0.01-0.20) K/uL Polychromasia Anisocytosis Echinocytes PT (9.0-12.0) Seconds INR (0.9-1.1) APTT (21.0-31.0) Seconds PTT Ratio Sodium 135 L (136-145) mmol/L Potassium 2.8 L (3.5-5.1) mmol/L Chloride 89 L (98-107) mmol/L Carbon Dioxide 34 H (21-32) mmol/L Anion Gap 12 H (3-11) BUN 26 H (6-23) mg/dl Creatinine 1.32 H (0.6-1.2) mg/dl Est Cr Clr Drug Dosing 80.5 ml/min Est GFR ( Amer) 55.9 ml/min Est GFR (Non-Af Amer) 48.3 ml/min BUN/Creatinine Ratio 19.7 (10-20) Glucose 92 (70-99(Fasting)) mg/dl Calcium 10.1 (8.6-10.3) mg/dl Magnesium 2.3 (1.7-2.4) mg/dl Total Bilirubin 0.4 (0.2-1.0) mg/dl AST 21 (13-39) U/L ALT 18 (7-52) U/L Alkaline Phosphatase 81 (34-104) U/L Troponin I High Sens 11.5 (0-14) pg/ml B-Natriuretic Peptide (0-100) pg/ml Total Protein 9.0 H (6.0-8.3) gm/dl Albumin 4.3 (3.4-5.0) gm/dl Globulin 4.7 H (2.5-4.0) gm/dl Albumin/Globulin Ratio 0.9 (0.9-2) Procalcitonin 0.06 (0-0.5) ng/ml Administered Medications Cefepime HCl 2,000 mg/ Syringe 20 mls @ 5 mls/min IV Q8H [facility]; Protocol Stop: 02/13/23 19:59 Last Admin: 02/06/23 21:00 Dose: 5 mls/min Documented By: JAVI Vancomycin HCl 2,750 mg/ (Sodium Chloride) 555 mls @ 200 mls/hr IV 2000 [facility] Stop: 02/13/23 19:59 Last Admin: 02/06/23 21:00 Dose: 200 mls/hr Documented By: JAVI Insulin Aspart (Insulin Aspart Per Unit Charge) 0 units SC ACHS [facility] Stop: 03/08/23 20:59 Last Admin: 02/06/23 20:59 Dose: Not Given Documented By: JAVI Insulin Glargine (Lantus Per Unit Charge) 10 units SQ BID [facility] Stop: 03/08/23 20:59 Last Admin: 02/06/23 21:00 Dose: Not Given Documented By: JAVI Pantoprazole Sodium (Pantoprazole 40 Mg Tab) 40 mg PO BID [facility] Stop: 03/08/23 20:59 Last Admin: 02/06/23 21:05 Dose: 40 mg Documented By: JAVI Warfarin Sodium (Warfarin Sod 7.5 Mg Tab) 7.5 mg PO DAILY@1600 [facility] Stop: 03/08/23 19:59 Last Admin: 02/06/23 21:04 Dose: 7.5 mg Documented By: JAVI Discontinued Medications Azithromycin (Azithromycin 250 Mg Tab) 500 mg PO NOW ONE Stop: 02/06/23 15:18 Last Admin: 02/06/23 16:06 Dose: 500 mg Documented By: BONI Bumetanide 2 mg/ Syringe 8 mls @ 4 mls/min IV ONE ONE Stop: 02/06/23 14:22 Last Admin: 02/06/23 16:06 Dose: 4 mls/min Documented By: BONI Ceftriaxone Sodium (Rocephin) 2,000 mg in 70 mls @ 140 mls/hr IV NOW STA Stop: 02/06/23 15:46 Last Infusion: 02/06/23 16:38 Dose: 0 mls/hr Documented By: Admin: 02/06/23 16:07 Dose: 140 mls/hr Documented By: BONI Ioversol (Optiray 320 500ml) 115 ml IV ONCE ONE Stop: 02/06/23 18:08 Last Admin: 02/06/23 18:07 Dose: 115 ml Documented By: RISHI Potassium Chloride (Potassium Chloride Crtab 20 Meq Tabcr) 20 meq PO NOW STA Stop: 02/06/23 14:22 Last Admin: 02/06/23 16:06 Dose: 20 meq Documented By: BONI Potassium Chloride (Potassium Chloride 10 Meq Tabcr) 10 meq PO NOW STA Stop: 02/06/23 14:22 Last Admin: 02/06/23 16:06 Dose: 10 meq Documented By: BONI Imaging Data Radiologist's Impression: Chest X-Ray 02/06/23 14:22 SINGLE VIEW CHEST CLINICAL HISTORY: Dyspnea. FINDINGS: An AP, portable, upright chest radiograph is compared to chest x-ray and chest CT dated 06/06/2022. The the patient is status post midline sternotomy. The heart is enlarged. There is pulmonary vascular congestion. Bilateral airspace opacities likely representing interstitial edema. Atelectasis is seen at the lung bases. No large pleural effusion or pneumothorax is identified. Asymmetric airspace opacities are suggested at the right apex. The skeletal structures are osteopenic. The bony thorax is grossly intact. IMPRESSION: 1. Cardiomegaly with evidence of congestive failure and pulmonary edema. 2. Asymmetric airspace opacities are seen at the right apex and there was an asymmetric edema. Correlate clinically for evidence of a superimposed infectious/inflammatory pneumonitis. Radiographic follow-up to resolution is recommended. ACT 112: Negative or not required by law. Electronically signed by: Obed Harper M.D. 02/06/2023 2:43 PM Discharge Plan Visit Data Chief Complaint: Respiratory Distress ED Provider: Gee Daniel Discharge Problem: Pneumonia, Pulmonary hypertension, CHF (congestive heart failure) Patient Disposition: Admitted As Inpatient Discharge Instructions Interventions: ED Discharge Assessment Last Done: 02/06/23 19:13
[2023-02-06] MEDS ORDERED: BUMETANIDE 2 MG in SYRINGE 0 ML IV ONE (14:21)
[2023-02-06] MEDS ORDERED: POTASSIUM CHLORIDE 10 MEQ TABCR PO STA (14:21)
[2023-02-06] MEDS ORDERED: POTASSIUM CHLORIDE CRTAB 20 MEQ TABCR PO STA (14:21)
--- NOTE | 2023-02-06 14:45 | XRay Report ---
SINGLE VIEW CHEST CLINICAL HISTORY: Dyspnea. FINDINGS: An AP, portable, upright chest radiograph is compared to chest x-ray and chest CT dated 06/06. The the patient is status post midline sternotomy. The heart is enlarged. There is pulmonary v ascular congestion. Bilateral airspace opacities likely representing interstitial edema. Atelectasis is seen at the lung bases. No large pleural effusion or pneumothorax is identified. Asymmetric airspa ce opacities are suggested at the right apex. The skeletal structures are osteopenic. The bony thorax is grossly intact. IMPRESSION: 1. Cardiomegaly with evidence of congestive failure and pulmonary edema. 2. Asymmetric airspace opacities are seen at the right apex and there was an asymmetric edema. Correl ate clinically for evidence of a superimposed infectious/inflammatory pneumonitis. Radiographic follo w-up to resolution is recommended. ACT 112: Negative or not required by law. Electronically signed by: Obed Harper M.D. 02/06/2023 2:43 PM
[2023-02-06 14:55] LABS: Basophils # (auto) 0.03 K/uL (0-0.2); Basophils % (auto) 0.3 %; Eosinophils # (auto) 0.08 K/uL (0-0.50); Eosinophils % (auto) 0.8 %; Hematocrit (blood only) 40.3 % (37.0-47.0); Hemoglobin 12.4 g/dl (12.0-16.0); Immature Granulocytes # (auto) 0.04 K/uL (0.01-0.20); Immature Granulocytes % (auto) 0.4 %; Lymphocytes # (auto) 2.13 K/uL (1.2-3.4); Lymphocytes % (auto) 22.6 %; Mean Corpuscular Hemoglobin 21.9 pg (25.0-34.0); Mean Corpuscular Hgb Conc 30.8 g/dL (32.0-36.0); Mean Corpuscular Volume 71.1 fL (80.0-100.0); Mean Platelet Volume 10.7 fL (9.4-12.4); Monocytes # (auto) 0.72 K/uL (0.11-0.59); Monocytes % (auto) 7.6 %; Neutrophils # (auto) 6.44 K/uL (1.40-6.50); Neutrophils % (auto) 68.3 %; Platelet Count 450 K/uL (130-400); RDW Coefficient of Variation 23.8 % (11.5-14.5); RDW Standard Deviation 58.2 fL (36.4-46.3); Red Blood Count 5.67 M/uL (4.20-5.40); White Blood Count 9.44 K/ul (4.8-10.8)
[2023-02-06 15:11] LABS: Albumin Level 4.3 gm/dl (3.4-5.0); Bilirubin,Total 0.4 mg/dl (0.2-1.0); Calcium 10.1 mg/dl (8.6-10.3); Magnesium 2.3 mg/dl (1.7-2.4); Potassium 2.8 mmol/L (3.5-5.1)
[2023-02-06 15:12] LABS: Troponin I High Sensitivity 11.5 pg/ml (0-14)
[2023-02-06 15:14] LABS: INR 2.4 (0.9-1.1); Partial Thromboplastin Ratio 1.3; Partial Thromboplastin Time 34.6 Seconds (21.0-31.0); Prothrombin Time 24.4 Seconds (9.0-12.0)
--- NOTE | 2023-02-06 15:14 | Electrocardiogram Report ---
Test Reason : Blood Pressure : / mmHG Vent. Rate : 099 BPM Atrial Rate : 099 BPM P-R Int : 176 ms QRS Dur : 076 ms QT Int : 342 ms P-R-T Axes : 034 113 066 degrees QTc Int : 438 ms Poor data quality, interpretation may be adversely affected Normal sinus rhythm Possible Left atrial enlargement Left posterior fascicular block Diffuse Minor Nonspecific ST and T wave abnormality Abnormal ECG When compared with ECG of 06-JUN-2022 16:56, No significant change Confirmed by Coy Conde ([id number]) on 02/06/2023 3:14:14 PM Referred By: Confirmed By:Coy Conde
[2023-02-06 15:17] LABS: Albumin Globulin Ratio 0.9 (0.9-2); BUN Creatinine Ratio 19.7 (10-20); Creatinine Clr Calc Pharmacy 80.5 ml/min; Est GFR (African American) 55.9 ml/min; Est GFR (Non-African American) 48.3 ml/min; Globulin 4.7 gm/dl (2.5-4.0)
[2023-02-06] MEDS ORDERED: cefTRIAXone SODIUM 2,000 MG/70 ML BAG IV STA (15:17)
[2023-02-06] MEDS ORDERED: AZITHROMYCIN 250 MG TAB PO ONE (15:17)
[2023-02-06 15:20] LABS: Anisocytosis Present; Echinocytes 1+; Polychromasia 1+
[2023-02-06 15:43] LABS: Adenovirus PCR Not Detected (NotDetected); Bordetella parapertussis PCR Not Detected (NotDetected); Bordetella pertussis PCR Not Detected (NotDetected); Chlamydia pneumoniae PCR Not Detected (NotDetected); Coronavirus 229E PCR Not Detected (NotDetected); Coronavirus CoV-2 (COVID19)PCR Not Detected (NotDetected); Coronavirus HKU1 PCR Not Detected (NotDetected); Coronavirus NL63 PCR Not Detected (NotDetected); Coronavirus OC43PCR Not Detected (NotDetected); Human Metapneumovirus PCR Not Detected (NotDetected); Influenza A PCR Not Detected (NotDetected); Influenza B PCR Not Detected (NotDetected); Mycoplasma pneumoniae PCR Not Detected (NotDetected); Parainfluenza Virus 1 PCR Not Detected (NotDetected); Parainfluenza Virus 2 PCR Not Detected (NotDetected); Parainfluenza Virus 3 PCR Not Detected (NotDetected); Parainfluenza Virus 4 PCR Not Detected (NotDetected); Respiratory Syncytial VirusPCR Not Detected (NotDetected); Rhinovirus/Enterovirus PCR Not Detected (NotDetected)
--- NOTE | 2023-02-06 16:55 | History & Physical Report ---
Date of Service February 06, 2023 Assessment & Plan (1) Acute on chronic respiratory failure with hypoxia: Plan: -Admit to med tele -The patient is currently afebrile, hemodynamically stable, and stable on 5L NC -At this time the patient's acute on chronic hypoxic respiratory failure is most-likely associated with a hospital acquired pneumonia. >CTPE was negative for PE, she is not volume overloaded, CTA of the chest shows multifocal airspace consolidation BL, full respiratory biofire is negative -Was given a dose of Ceftriaxone and Azithromycin in the ED, will switch to Vancomycin and Cefepime for now to cover for Hospital Acquired Pneumonia -Will obtain a sputum culture with gram stain, blood cultures obtained in the ED -MRSA swab otbained in the ED, if negative and de-escalate her Vancomycin -Supportive treatment with Incentive spirometry, flutter therapy, prn robitussin & DuoNebs -BL SCD's and home warfarin for DVT PPX -AM CBC, CMP, Mag, PT/INR (2) Hypokalemia: Plan: -Initially 2.8 in the ED today, no acute ECG changes, Mag WNL -Likely due to her daily Bumex -S/P 10 meq IV KCL and 20 meq PO KCl in the ED -Will repeat another potassium level this evening and replete as needed -Can continue home PO 40 meq KCL TID tomorrow -AM K level (3) Pulmonary hypertension: Plan: -Hx of severe Pulm HTN -S/P recent balloon angioplasty at [place] on 01/18 -Normally on Adempas, this is not on formulary -Per our Pulmonology team, there is no 1:1 replacement -Patient will likely be able to have her friend bring it in tomorrow (4) GIULIANA (obstructive sleep apnea): Plan: -HS CPAP ordered as she is without acute PE (5) Pulmonary embolism: Plan: -Hx of chronic PE's -No acute PE on CTPE today -Continue Warfarin, therapeutic today with INR of 2.4 -AM INR (6) Asthma: Plan: -Prn DuoNebs for wheezing (7) HTN (hypertension): Plan: -Stable -Continue home bumex of 3 mg PO BID (8) DM II (diabetes mellitus, type II), controlled: Plan: -Hold Metformin and Mounjaro -Monitor BSG ACHS, goal is 110-140 -10 units lantus BID, correction factor of 50 and carb ratio of 15 -DM II diet Plan The patient was discussed with Dr. Smyth at the time of the admission History of Present Illness Chief Complaint: Increased SOB Primary Care Provider: Beulah Valle DO Lyudmila is a 47 year old female with a PMH significant for chronic respiratory failure on baseline 6L NC, HFpEF (LVEF of 60-65%, mild mitral regurg, tricuspid regurg, severe pulm HTN as of 09/25/22), GIULIANA, PE in 1993 S/P pulmonary endarterectomy in 1993 and 2003, currently on Warfarin, DM II, HTN, an d asthma who presented to the [facility] ED on 02/06/23 with a chief complaint of worsening SOB. In the ED the patient was initially found to be afebrile, hemodynamically stable, and stable on 10 L NC. Labs were significant for a WBC WNL, stable hgb, MCV of 71, MCHC of 30, platelets of 450, INR of 2.4, cr of 1.32 (baseline appears around 1.1), potassium of 2.8, chloride of 89, AG of 12 with bicarb of 34, BUN of 26, BNP of 28, procal of 0.06, negative full respiratory biofire. Chest xray was read as "1. Cardiomegaly with evidence of congestive failure and pulmonary edema. 2. Asymmetric airspace opacities are seen at the right apex and there was an asymmetric edema. Correlate clinically for evidence of a superimposed infectious/inflammatory pneumonitis. Radiographic follow-up to resolution is recommended. Prior to admission the patient was given a dose of azithromycin, ceftriaxone, 2mg IV Bumex, 10 meq IV KCL, and 20 meq PO KCL. AT the time of the exam the patient was sitting in bed in no acute distress, she was saturating at 98% on 7L NC. I tried to turn her down to her baseline 4L NC but she fell to the low 90's at rest. She states that she had a balloon angioplasty procedure on January 18 down in [place] for her pulmonary HTN. Prior to the procedure she was requiring 6L NC but was able to be titrated down to 4L NC on discharge. Since 02/02 she has been experiencing a productive cough with yellow sputum, increased SOB, and increased O2 demands. She states that her SpO2 goal is at or above 95%. She was falling into the 80's with exertion over the past few days. She called her PCP on Sunday and they started her on a 6 day course of methylprednisolone. She states that her breathing has not improved since starting the steroid treatment. She is concerned that she may have another PE as she has required two previous endarterectomy's in the past. She explains that her Warfarin was held a week before her balloon angioplasty on 01/18 and she was on a heparin drip prior to the procedure. After the procedure she was bridged with lovenox and her Warfarin was restarted. She denies recent fevers, chills, chest pain, pleuritic chest pain, hemoptysis, nausea, vomiting, diarrhea, dysuria, hematuria, melena, LE swelling and recent trauma. At the time of the exam she does not feel as though her SOB has improved compared to arrival. Please refer to Dr. Smyth's attestation for any changes to the treatment plan Allergies Allergy/AdvReac Type Severity Reaction Status Date / Time Penicillins Allergy Intermediate HIVES-EYES Verified 02/06/23 15:45 SWELLED codeine AdvReac Intermediate PASTED OUT Verified 02/06/23 15:45 Home Medications Medication Instructions Recorded Confirmed Type ferrous sulfate 325 mg (65 mg 325 mg PO DAILY 09/30/18 02/06/23 History iron) tablet omeprazole 20 mg capsule,delayed 20 mg PO BID 09/30/18 02/06/23 History release riociguat 2.5 mg tablet 2.5 mg PO TID 09/30/18 02/06/23 History metformin 750 mg tablet,extended 750 mg PO DAILY 11/24/21 02/06/23 History release 24 hr metolazone 2.5 mg tablet 2.5 mg PO DIRECTED PRN 11/24/21 02/06/23 History NEEDED PER MED LIST potassium chloride 10 mEq 40 meq PO TID 11/24/21 02/06/23 History tablet,extended release topiramate 50 mg tablet 50 mg PO DAILY 11/24/21 02/06/23 History tramadol 50 mg tablet 50 mg PO BID PRN Pain 11/24/21 02/06/23 History warfarin 7.5 mg tablet (Jantoven) 7.5 mg PO QPM 11/24/21 02/06/23 History berberine-herbal comb no.18 capsule 1 cap PO DAILY 02/06/23 02/06/23 History bumetanide 2 mg tablet 3 mg PO BID 02/06/23 02/06/23 History cetirizine 10 mg tablet 10 mg PO DAILY PRN Congestion 02/06/23 02/06/23 History cholecalciferol (vitamin D3) 25 25 mcg PO DAILY 02/06/23 02/06/23 History mcg (1,000 unit) capsule (Vitamin D3) cinnamon bark 500 mg capsule 500 mg PO DAILY 02/06/23 02/06/23 History (Cinnamon) methylprednisolone 4 mg tablets in 0 mg PO DAILY 02/06/23 02/06/23 History a dose pack prochlorperazine maleate 5 mg 5 mg PO TID PRN NAUSEA/VOMITING 02/06/23 02/06/23 History tablet (Compazine) tirzepatide 5 mg/0.5 mL 5 mg subcut WK 02/06/23 02/06/23 History subcutaneous pen injector (Mounjaro) vitamin B complex 1 tab PO DAILY 02/06/23 02/06/23 History Past Med/Surg History Medical History (Updated 02/06/23 @ 19:25 by Bar Hurley PA-C) Acute and chronic respiratory failure Acute asthma exacerbation Asthma Bronchitis HTN (hypertension) Microcytic anemia Morbid obesity with BMI of 60.0-69.9, adult On home O2 Pulmonary embolism Pulmonary hypertension Surgical History History of embolectomy Family History Other No pertinent family history Social History Smoking Status: Never smoker Hx Alcohol Use: No Hx Substance Use: No Preferred Language: [place] Citizen Communication Ability: Effective Visual Impairment: No Limitations Hearing Ability: Normal Manager Practice Required: No Beliefs That Will Affect Care: None marital status: Single Current Living Situation: Alone Feels Safe at Home: Yes Assistive Devices: Oxygen - Continuous Review of Systems Review of Systems: Denies current fever, chills, headache, changes in vision, hearing, taste, and smell, chest pain, abdominal pain, nausea, vomiting, diarrhea, hematemesis, melena, dysuria, hematuria, and recent falls. All systems have been reviewed and are otherwise negative. Physical Exam Physical Exam: Physical Exam: General: In no acute distress, stated age, well-nourished, good hygiene, chronically ill appearing HEENT: Normocephalic, atraumatic, currently with NC in place, no scleral icterus, pupils around round, symmetrical, and reactive to light, moist mucus membranes, trachea midline, no thyromegaly Chest/Pulm: No respiratory distress, symmetrical chest expansion, rhonchi and expiratory wheezing noted in the RUL, expiratory wheezing noted int he RLL, left lung is CTA Cardiac: RRR, systolic murmur noted Abdomen: Negative for ascites and bruising, normoactive bowel sounds, soft, non-tender to palpation throughout Musculoskeletal: Symmetrical and without signs of acute trauma, upper and lower extremities with full ROM, no atrophy, spasticity, or flaccidity Extremities: Radial, dorsalis pedis, and posterior tibial pulses are intact and symmetrical, no edema noted in the BL LE's Skin: Warm, dry, no rashes , lesions, or scars noted Neuro: Alert and oriented to person, place, month, year, and president, no focal defects, no tremors noted Psych: No acute distress, calm and cooperative during the exam Results & Data Results & Data Vital Signs (Past 12 Hours) Vital Signs Temp Pulse Pulse Resp BP BP Pulse Ox 02/06/23 16:00 88 21 132/80 95 02/06/23 14:05 90 02/06/23 14:23 96 02/06/23 13:46 36.6 C 102 H 30 H 119/75 95 O2 Del Method O2 Flow Rate 02/06/23 16:00 Room Air 02/06/23 14:05 02/06/23 14:23 Nasal Cannula 6 02/06/23 13:46 Nasal Cannula 6 Laboratory Results Abnormal lab results 02/06/23 02/06/23 02/06/23 Range/Units 13:56 13:56 13:56 RBC 5.67 H (4.20-5.40) M/uL MCV 71.1 L (80.0-100.0) fL MCH 21.9 L (25.0-34.0) pg MCHC 30.8 L (32.0-36.0) g/dL RDW Std Deviation 58.2 H (36.4-46.3) fL RDW Coeff of Malinda 23.8 H (11.5-14.5) % Plt Count 450 H (130-400) K/uL Carson # (Auto) 0.72 H (0.11-0.59) K/uL PT 24.4 H (9.0-12.0) Seconds INR 2.4 H (0.9-1.1) APTT 34.6 H (21.0-31.0) Seconds Sodium 135 L (136-145) mmol/L Potassium 2.8 L (3.5-5.1) mmol/L Chloride 89 L (98-107) mmol/L Carbon Dioxide 34 H (21-32) mmol/L Anion Gap 12 H (3-11) BUN 26 H (6-23) mg/dl Creatinine 1.32 H (0.6-1.2) mg/dl Total Protein 9.0 H (6.0-8.3) gm/dl Globulin 4.7 H (2.5-4.0) gm/dl Diagnostic Findings Chest X-Ray 02/06/23 14:22 SINGLE VIEW CHEST CLINICAL HISTORY: Dyspnea. FINDINGS: An AP, portable, upright chest radiograph is compared to chest x-ray and chest CT dated 06/06/2022. The the patient is status post midline sternotomy. The heart is enlarged. There is pulmonary vascular congestion. Bilateral airspace opacities likely representing interstitial edema. Atelectasis is seen at the lung bases. No large pleural effusion or pneumothorax is identified. Asymmetric airspace opacities are suggested at the right apex. The skeletal structures are osteopenic. The bony thorax is grossly intact. IMPRESSION: 1. Cardiomegaly with evidence of congestive failure and pulmonary edema. 2. Asymmetric airspace opacities are seen at the right apex and there was an asymmetric edema. Correlate clinically for evidence of a superimposed infectious/inflammatory pneumonitis. Radiographic follow-up to resolution is recommended. ACT 112: Negative or not required by law. Electronically signed by: Obed Harper M.D. 02/06/2023 2:43 PM Chest X-Ray 02/06/23 14:22 SINGLE VIEW CHEST CLINICAL HISTORY: Dyspnea. FINDINGS: An AP, portable, upright chest radiograph is compared to chest x-ray and chest CT dated 06/06/2022. The the patient is status post midline sternotomy. The heart is enlarged. There is pulmonary vascular congestion. Bilateral airspace opacities likely representing interstitial edema. Atelectasis is seen at the lung bases. No large pleural effusion or pneumothorax is identified. Asymmetric airspace opacities are suggested at the right apex. The skeletal structures are osteopenic. The bony thorax is grossly intact. IMPRESSION: 1. Cardiomegaly with evidence of congestive failure and pulmonary edema. 2. Asymmetric airspace opacities are seen at the right apex and there was an asymmetric edema. Correlate clinically for evidence of a superimposed infectious/inflammatory pneumonitis. Radiographic follow-up to resolution is recommended. ACT 112: Negative or not required by law. Electronically signed by: Obed Harper M.D. 02/06/2023 2:43 PM Chest CTA 02/06/23 17:33 CT ANGIOGRAM OF THE CHEST CLINICAL HISTORY: Dyspnea. COMPARISON STUDY: Chest x-ray dated 02/06/2023. Chest CT dated 06/06/2022. TECHNIQUE: Following the IV administration of 115 cc of Optiray 320, CT angiogram of the chest was performed from the upper abdomen to the thoracic inlet utilizing the pulmonary embolus protocol. Images are reviewed in the axial, sagittal, and coronal planes. 3-D MIPS images are created and assessed. IV contrast was administered without complication. A dose lowering technique was utilized adhering to the principles of ALARA. CT DOSE: 896.97 mGy.cm FINDINGS: Thyroid: Imaged portions of the thyroid gland are normal in size and attenuation. Thoracic aorta: The thoracic aorta is normal in caliber and demonstrates standard 3-vessel arch anatomy. No dissection is seen. Pulmonary vasculature: The pulmonary trunk is normal in caliber. 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 There are no filling defects identified in main, lobar, or segmental pulmonary branches to suggest acute pulmonary embolus. There are foci of chronic pulmonary embolus again seen within the right upper and right lower lobe pulmonary arteries as well as the lingular pulmonary artery. Heart: The patient is status post midline sternotomy. The heart is mildly enlarged and without pericardial effusion. Lungs and pleural spaces: There is multifocal airspace consolidation throughout both lungs, most confluent in the right upper lobe. No pleural effusion is identified. The trachea and central airways are clear. Mediastinum: There are prominent mediastinal lymph nodes. Marie: Mildly enlarged right hilar nodes measure up to 13 mm in short axis. Axillae: There is no axillary lymphadenopathy. Upper abdomen: The liver is enlarged and steatotic. The spleen is enlarged measuring 15.1 cm in length. A small hiatal hernia is noted. Skeletal structures: The skeletal structures are osteopenic. No lytic or blastic bony lesions are seen. IMPRESSION: 1. There is no evidence of acute pulmonary embolus in the main, lobar, or segmental pulmonary arteries. 2. Chronic bilateral pulmonary as above. This is similar to the 06/06/2022 examination. 3. Cardiomegaly. 4. 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 This is similar to previous. 5. Multifocal airspace consolidation is seen throughout both lungs, most confluent in the right upper lobe. Correlate clinically for evidence of pneumonia. Radiographic follow-up to resolution is recommended. 6. Hepatic steatosis and splenomegaly. 7. Mildly enlarged hilar nodes are likely reactive. 8. Additional findings as above. ACT 112: Negative or not required by law. Electronically signed by: Obed Harper M.D. 02/06/2023 6:37 PM ECG Additional Comments: Poor data quality, interpretation may be adversely affected Normal sinus rhythm Possible Left atrial enlargement Left posterior fascicular block Diffuse Minor Nonspecific ST and T wave abnormality Abnormal ECG When compared with ECG of 06-JUN-2022 16:56, No significant change Confirmed by Coy Conde ([id number]) on 02/06/2023 3:14:14 PM Code Status & VTE Plan Code Status Full code VTE Prophylaxis Plan VTE Prophylaxis will be ordered: Yes Supervising Physician Co-Signing Physician Notes Patient seen and examined, chart reviewed, case discussed with Bar Hurley PA-C and I agree with the assessment and plan as above except as otherwise noted Labs and images reviewed Seen at the bedside in the ER prior to transfer to floor. She reports upon arrival to the ER she does feel improved on oxygen, but notes that she fatigues easily with attempted exertion. Has had a nonproductive cough. She is concerned about PE as she has had multiple anticoagulation changes as noted, although to her knowledge was always anticoagulated, was bridged with heparin, and was in therapeutic range on her INR recheck. Nondistressed regular heart rate at bedside, she has right-sided expiratory wheezes, coarse right greater than left. CTA shows no evidence of acute PE, multifocal airspace consolidation is seen in the lungs suspicious for pneumonia. Agree with antibiotics as above. Continue warfarin, INR daily. Patient will have her Adempas brought in for use. Otherwise agree with assessment and management above. PG Care Time/CCT Total # of Minutes Spent Total Time Spent with Patient: Total time spent is greater than 50% in coordination of care (as documented) at patient's floor/unit and/or counseling patient: Coding [place] [address] INT INP/OBS CARE 3/75MIN Patient Type Established Medical Decision Making High Complexity Diagnoses Acute on chronic respiratory failure with hypoxia J96.21 Hypokalemia E87.6 Pulmonary hypertension I27.20 GIULIANA (obstructive sleep apnea) G47.33 Pulmonary embolism I26.99 Acute cor pulmonale presence: without acute cor pulmonale Chronicity: chronic Asthma J45.909 HTN (hypertension) I10 DM II (diabetes mellitus, type II), controlled E11.9 (5) Pulmonary embolism Acute cor pulmonale presence: without acute cor pulmonale Chronicity: chronic
[2023-02-06] MEDS ORDERED: CARBOHYDRATES FOR HYPOGLYCEMIA PO PRN (16:58)
[2023-02-06] MEDS ORDERED: GLUCOSE 40% GEL 15 GM TUBE PO PRN (16:58)
[2023-02-06] MEDS ORDERED: GLUCAGON FOR INJ 1 MG VIAL SQ PRN (16:58)
[2023-02-06] MEDS ORDERED: GLUCOSE 10 TAB/TUBE PO PRN (16:58)
[2023-02-06] MEDS ORDERED: DEXTROSE 50% 50 ML SYRINGE IV PRN (16:58)
[2023-02-06] MEDS ORDERED: OPTIRAY 320 500ml IV ONE (18:07)
--- NOTE | 2023-02-06 18:39 | CT Scan Report ---
CT ANGIOGRAM OF THE CHEST CLINICAL HISTORY: Dyspnea. COMPARISON STUDY: Chest x-ray dated 02/06/2023. Chest CT dated 06/06/2022. TECHNIQUE: Following the IV administration of 115 cc of Optiray 320, CT angiogram of the chest was pe rformed from the upper abdomen to the thoracic inlet utilizing the pulmonary embolus protocol. Images are reviewed in the axial, sagittal, and coronal planes. 3-D MIPS images are created and assessed. I V contrast was administered without complication. A dose lowering technique was utilized adhering to the principles of ALARA. CT DOSE: 896.97 mGy.cm FINDINGS: Thyroid: Imaged portions of the thyroid gland are normal in size and attenuation. Thoracic aorta: The thoracic aorta is normal in caliber and demonstrates standard 3-vessel arch anato my. No dissection is seen. Pulmonary vasculature: The pulmonary trunk is normal in caliber. A 1.9 cm aneurysm of the pulmonary t runk is unchanged. There are no filling defects identified in main, lobar, or segmental pulmonary bra nches to suggest acute pulmonary embolus. There are foci of chronic pulmonary embolus again seen with in the right upper and right lower lobe pulmonary arteries as well as the lingular pulmonary artery. Heart: The patient is status post midline sternotomy. The heart is mildly enlarged and without perica rdial effusion. Lungs and pleural spaces: There is multifocal airspace consolidation throughout both lungs, most conf luent in the right upper lobe. No pleural effusion is identified. The trachea and central airways are clear. Mediastinum: There are prominent mediastinal lymph nodes. Marie: Mildly enlarged right hilar nodes measure up to 13 mm in short axis. Axillae: There is no axillary lymphadenopathy. Upper abdomen: The liver is enlarged and steatotic. The spleen is enlarged measuring 15.1 cm in lengt h. A small hiatal hernia is noted. Skeletal structures: The skeletal structures are osteopenic. No lytic or blastic bony lesions are see n. IMPRESSION: 1. There is no evidence of acute pulmonary embolus in the main, lobar, or segmental pulmonary arterie s. 2. Chronic bilateral pulmonary as above. This is similar to the 06/06/2022 examination. 3. Cardiomegaly. 4. 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 This is similar to previous. 5. Multifocal airspace consolidation is seen throughout both lungs, most confluent in the right upper lobe. Correlate clinically for evidence of pneumonia. Radiographic follow-up to resolution is recomm ended. 6. Hepatic steatosis and splenomegaly. 7. Mildly enlarged hilar nodes are likely reactive. 8. Additional findings as above. ACT 112: Negative or not required by law. Electronically signed by: Obed Harper M.D. 02/06/2023 6:37 PM
[2023-02-06] MEDS ORDERED: VANCOMYCIN CONSULT ACTIVE PRN (19:05)
[2023-02-06] MEDS ORDERED: traMADol HCL 50 MG TABLET PO PRN (19:14)
[2023-02-06] MEDS ORDERED: CETIRIZINE HCL 10 MG TABLET PO PRN (19:14)
[2023-02-06] MEDS ORDERED: guaiFENesin SUGAR FREE 200 MG/10 ML UDC PO PRN (19:14)
[2023-02-06] MEDS ORDERED: POTASSIUM CHLORIDE CRTAB 20 MEQ TABCR PO SCH (19:30)
[2023-02-06] MEDS ORDERED: VANCOMYCIN HCL 2,750 MG in SODIUM CHLORIDE 0.9% 500 ML IV SCH (20:00)
[2023-02-06] MEDS: INSULIN ASPART PER UNIT CHARGE SC SCH (20:59)
[2023-02-06] MEDS: CEFEPIME 2,000 MG in SYRINGE 0 ML IV SCH (21:00)
[2023-02-06] MEDS: LANTUS PER UNIT CHARGE SQ SCH (21:00)
[2023-02-06] MEDS: WARFARIN SOD 7.5 MG TAB PO SCH (21:04)
[2023-02-06] MEDS: PANTOprazole 40 MG TAB PO SCH (21:05)
[2023-02-07] MEDS ORDERED: VANCOMYCIN HCL 1,000 MG in SODIUM CHLORIDE 0.9% 250 ML IV SCH (05:00)
[2023-02-07] MEDS: CEFEPIME 2,000 MG in SYRINGE 0 ML IV SCH ×3 (05:19→22:01)
[2023-02-07] MEDS ORDERED: ONDANSETRON 4 MG OD TAB PO PRN (06:17)
[2023-02-07] MEDS: ACETAMINOPHEN 325 MG TAB PO PRN ×2 (06:25→20:48)
[2023-02-07 06:48] LABS: Hematocrit (blood only) 42.2 % (37.0-47.0); Mean Corpuscular Hgb Conc 30.8 g/dL (32.0-36.0); Mean Corpuscular Volume 71.3 fL (80.0-100.0); Mean Platelet Volume 10.4 fL (9.4-12.4); Platelet Count 426 K/uL (130-400); RDW Coefficient of Variation 23.7 % (11.5-14.5); RDW Standard Deviation 58.5 fL (36.4-46.3); Red Blood Count 5.92 M/uL (4.20-5.40); White Blood Count 9.15 K/ul (4.8-10.8)
[2023-02-07 07:11] LABS: Albumin Globulin Ratio 0.9 (0.9-2); Albumin Level 4.2 gm/dl (3.4-5.0); BUN Creatinine Ratio 19.5 (10-20); Bilirubin,Total 0.4 mg/dl (0.2-1.0); Calcium 9.6 mg/dl (8.6-10.3); Creatinine Clr Calc Pharmacy 89.2 ml/min; Est GFR (African American) 64.1 ml/min; Est GFR (Non-African American) 55.3 ml/min; Globulin 4.5 gm/dl (2.5-4.0); Magnesium 2.2 mg/dl (1.7-2.4); Potassium 2.7 mmol/L (3.5-5.1); Total Protein 8.7 gm/dl (6.0-8.3)
[2023-02-07] MEDS: ALBUT/IPRATROP 3MG/0.5MG NEB 3 ML VIAL NEB SCH ×4 (07:11→19:12)
[2023-02-07 07:17] LABS: INR 2.3 (0.9-1.1); Prothrombin Time 23.4 Seconds (9.0-12.0)
--- NOTE | 2023-02-07 07:56 | Hospitalist Progress Note ---
Date of Service February 07, 2023 Assessment & Plan (1) Pneumonia: Plan: 47yo Female with PMH chronic respiratory failure on 6L O2 at home, HFpEF, GIULIANA, hx. PE on warfarin, DMII, HTN, asthma here for increased SOB. Acute on chronic respiratory failure with hypoxia: -NC canula O2 to keep O2 above 90% Pneumonia >CTA chest was negative for PE, she is not volume overloaded, CTA of the chest shows multifocal airspace consolidation BL, full respiratory biofire is negative -received Ceftriaxone and Azithromycin in the ED, switched to vancomycin cefepime to cover hospital acquired PNA vancomycin dc'd given negative MRSA nares - blood cultures pending -Supportive treatment with Incentive spirometry, flutter therapy, prn robitussin & DuoNebs - continue to monitor Hypokalemia: -Initially 2.8 in the ED today, no acute ECG changes, Mag WNL -Likely due to her daily Bumex -continue home PO 40 meq KCl TID -replete as needed. Patient prefers oral to IV repletion Pulmonary hypertension: -Hx of severe Pulm HTN -S/P recent balloon angioplasty at [place] on 01/18 -Normally on Adempas, this is not on formulary -Per our Pulmonology team, there is no 1:1 replacement -Patient will have her friend bring it in GIULIANA (obstructive sleep apnea): -HS CPAP ordered as she is without acute PE Pulmonary embolism: -Hx of chronic PE's -No acute PE on CTPE today -Continue Warfarin, therapeutic today with INR of 2.3 Asthma: -Prn DuoNebs for wheezing HTN (hypertension): -Stable -Continue home bumex of 3 mg PO BID DM II (diabetes mellitus, type II), controlled: -Hold Metformin and Mounjaro -Monitor BSG ACHS, goal is 110-140 -10 units lantus BID, correction factor of 50 and carb ratio of 15 -DM II diet Warfarin Full code med/tele (2) Pulmonary hypertension: (3) CHF (congestive heart failure): (4) DM II (diabetes mellitus, type II), controlled: (5) Acute on chronic respiratory failure with hypoxia: (6) Chronic CHF (congestive heart failure): (7) O2 dependent: (8) Pulmonary hypertension: (9) Morbid obesity with BMI of 50.0-59.9, adult: (10) GIULIANA (obstructive sleep apnea): Admission and Anticipated Discharge Date Admission Date: February 06, 2023 Supervising Physician Co-Signing Physician Notes Resident Physician Supervision Note: I independently interviewed and examined the patient and verified the scales history and physical, reviewed labs and image studies and agree with resident findings and care plan. Subjective Patient seen at bedside, calm comfortable cooperative. States her breathing feels better compared to on admission. She is usually on 6L oxygen at home, currently satting well on 5L NC. Patient understands she is currently being treated with antibiotics. At this time appetite is good, no nausea, no BM today yet. Patient states she has some right sided chest discomfort that came on a few hours ago, is worried that it may be related to her recent balloon angioplasty, would like her surgeon Dr. Young to be contacted at [phone]. Contacted Dr. Young, there is a possibility the balloon angioplasty could result in imaging that resembles ARDS or consolidations, no concerns at this time, they will contact patient if her hospitalization interferes with her follow up appointment in 2 weeks. Physical Exam Constitutional: + morbidly obese, cooperative and comfortable Eyes: PERRL, conjunctivae normal, anicteric sclerae ENMT: external ear and nose normal, oropharynx normal nasal cannula in place Neck: normal visual inspection and + thick neck Respiratory: normal respiratory effort, lungs clear to auscultation Cardiovascular: Rate/Rhythm: regular rate and regular rhythm Extremities: + edema (+1 pitting edema) Gastrointestinal (Abdomen): Inspection/Auscultation: abdomen normal to inspection Percussion/Palpation: abdomen soft; abdomen nontender Skin: no rashes, warm and dry Results & Data Results & Data Vital Signs (Past 12 Hours) Vital Signs Temp Pulse Pulse Resp BP Pulse Ox O2 Del Method 02/07/23 07:43 36.5 C 82 20 100/66 95 Room Air 02/07/23 07:14 91 H 02/07/23 07:12 83 16 96 Nasal Cannula 02/07/23 03:27 36.7 C 86 20 136/82 90 BiPAP 02/07/23 03:13 85 18 92 02/07/23 00:00 95 H 02/06/23 20:22 84 02/06/23 22:13 36.7 C 86 18 118/77 94 Nasal Cannula 02/06/23 21:00 83 22 96 02/06/23 22:12 Nasal Cannula 02/06/23 22:12 36.8 C 85 18 116/79 95 Nasal Cannula O2 Flow Rate 02/07/23 07:43 02/07/23 07:14 02/07/23 07:12 5 02/07/23 03:27 02/07/23 03:13 5 02/07/23 00:00 02/06/23 20:22 02/06/23 22:13 5 02/06/23 21:00 5 02/06/23 22:12 5 02/06/23 22:12 5 Resident Activity Tracking Resident Involvement: Resident Care Provided Care Provided: Adult Hospital Medicine (1) Pneumonia Laterality: right Lung location: upper lobe of lung Pneumonia type: due to unspecified organism Qualified Code(s): J18.9 - Pneumonia, unspecified organism (3) CHF (congestive heart failure) Heart failure chronicity: acute on chronic Heart failure type: unspecified Qualified Code(s): I50.9 - Heart failure, unspecified (6) Chronic CHF (congestive heart failure) Heart failure type: unspecified Qualified Code(s): I50.9 - Heart failure, unspecified
[2023-02-07] MEDS: FERROUS SULFATE 325 MG TAB PO SCH (07:58)
[2023-02-07] MEDS: TOPIRAMATE 50 MG TAB PO SCH (07:59)
[2023-02-07] MEDS: PANTOprazole 40 MG TAB PO SCH ×2 (07:59→22:01)
[2023-02-07] MEDS: BUMETANIDE 1 MG TAB PO SCH ×2 (07:59→17:00)
[2023-02-07] MEDS: POTASSIUM CHLORIDE CRTAB 20 MEQ TABCR PO SCH ×3 (07:59→22:01)
[2023-02-07] MEDS ORDERED: POTASSIUM CHLORIDE / WTR 10 MEQ/100 ML PLCT IV SCH (08:00)
[2023-02-07] MEDS ORDERED: POTASSIUM CHLORIDE CRTAB 20 MEQ TABCR PO STA (08:05)
[2023-02-07] MEDS: LANTUS PER UNIT CHARGE SQ SCH (08:06)
[2023-02-07] MEDS: INSULIN ASPART PER UNIT CHARGE SC SCH ×3 (08:07→17:00)
[2023-02-07 15:43] LABS: BUN Creatinine Ratio 18.5 (10-20); Calcium 9.9 mg/dl (8.6-10.3); Creatinine Clr Calc Pharmacy 88.4 ml/min; Est GFR (African American) 63.4 ml/min; Est GFR (Non-African American) 54.7 ml/min; Potassium 3.3 mmol/L (3.5-5.1)
[2023-02-07] MEDS: WARFARIN SOD 7.5 MG TAB PO SCH (16:59)
[2023-02-07] MEDS ORDERED: VANCOMYCIN HCL 1,500 MG in SODIUM CHLORIDE 0.9% 500 ML IV SCH (20:00)
[2023-02-07] MEDS: ADEMPAS PO SCH (23:45)
[2023-02-08] MEDS: INSULIN ASPART PER UNIT CHARGE SC SCH ×3 (00:24→12:45)
[2023-02-08] MEDS: LANTUS PER UNIT CHARGE SQ SCH ×2 (00:26→10:47)
[2023-02-08] MEDS: CEFEPIME 2,000 MG in SYRINGE 0 ML IV SCH (05:58)
[2023-02-08] MEDS: ALBUT/IPRATROP 3MG/0.5MG NEB 3 ML VIAL NEB SCH ×2 (06:59→11:02)
[2023-02-08 08:44] LABS: INR 2.4 (0.9-1.1); Prothrombin Time 24.1 Seconds (9.0-12.0)
[2023-02-08] MEDS: PANTOprazole 40 MG TAB PO SCH (09:09)
[2023-02-08] MEDS: FERROUS SULFATE 325 MG TAB PO SCH (09:09)
[2023-02-08] MEDS: POTASSIUM CHLORIDE CRTAB 20 MEQ TABCR PO SCH ×4 (09:09→12:57)
[2023-02-08] MEDS: BUMETANIDE 1 MG TAB PO SCH (09:09)
[2023-02-08] MEDS: TOPIRAMATE 50 MG TAB PO SCH (09:10)
[2023-02-08] MEDS: ADEMPAS PO SCH (09:10)
--- NOTE | 2023-02-08 09:40 | Hospitalist Progress Note ---
Date of Service February 08, 2023 Assessment & Plan (1) Pneumonia: Plan: 47yo Female with PMH chronic respiratory failure on 6L O2 at home, HFpEF, GIULIANA, hx. PE on warfarin, DMII, HTN, asthma here for increased SOB. Acute on chronic respiratory failure with hypoxia: -NC canula O2 to keep O2 above 90% Pneumonia >CTA chest was negative for PE, she is not volume overloaded, CTA of the chest shows multifocal airspace consolidation BL, full respiratory biofire is negative -received Ceftriaxone and Azithromycin in the ED, switched to vancomycin cefepime to cover hospital acquired PNA vancomycin dc'd given negative MRSA nares - blood cultures pending -Supportive treatment with Incentive spirometry, flutter therapy, prn robitussin & DuoNebs - continue to monitor Hypokalemia: -Initially 2.8 in the ED today, no acute ECG changes, Mag WNL -Likely due to her daily Bumex -continue home PO 40 meq KCl TID -replete as needed. Patient prefers oral to IV repletion Pulmonary hypertension: -Hx of severe Pulm HTN -S/P recent balloon angioplasty at [place] on 01/18 -Normally on Adempas, this is not on formulary -Per our Pulmonology team, there is no 1:1 replacement -Patient will have her friend bring it in GIULIANA (obstructive sleep apnea): -HS CPAP ordered as she is without acute PE Pulmonary embolism: -Hx of chronic PE's -No acute PE on CTPE today -Continue Warfarin, therapeutic today with INR of 2.3 Asthma: -Prn DuoNebs for wheezing HTN (hypertension): -Stable -Continue home bumex of 3 mg PO BID DM II (diabetes mellitus, type II), controlled: -Hold Metformin and Mounjaro -Monitor BSG ACHS, goal is 110-140 -10 units lantus BID, correction factor of 50 and carb ratio of 15 -DM II diet Warfarin Full code med/tele (2) Pulmonary hypertension: (3) CHF (congestive heart failure): (4) DM II (diabetes mellitus, type II), controlled: (5) Acute on chronic respiratory failure with hypoxia: (6) Chronic CHF (congestive heart failure): (7) O2 dependent: (8) Morbid obesity with BMI of 50.0-59.9, adult: (9) GIULIANA (obstructive sleep apnea): Admission and Anticipated Discharge Date Admission Date: February 06, 2023 Results & Data Results & Data Vital Signs (Past 12 Hours) Vital Signs Temp Pulse Pulse Resp BP Pulse Ox O2 Del Method 02/08/23 08:09 36.4 C L 84 18 109/54 L 97 Nasal Cannula 02/08/23 07:01 83 18 97 Nasal Cannula 02/08/23 02:47 83 20 108/68 90 BiPAP 02/08/23 02:58 88 19 91 02/08/23 02:12 87 02/08/23 02:12 Nasal Cannula 02/07/23 23:06 87 20 107/67 90 BiPAP 02/07/23 22:38 21 95 O2 Flow Rate 02/08/23 08:09 5 02/08/23 07:01 5 02/08/23 02:47 02/08/23 02:58 5 02/08/23 02:12 02/08/23 02:12 5 02/07/23 23:06 02/07/23 22:38 5 (1) Pneumonia Laterality: right Lung location: upper lobe of lung Pneumonia type: due to unspecified organism Qualified Code(s): J18.9 - Pneumonia, unspecified organism (3) CHF (congestive heart failure) Heart failure chronicity: acute on chronic Heart failure type: unspecified Qualified Code(s): I50.9 - Heart failure, unspecified (6) Chronic CHF (congestive heart failure) Heart failure type: unspecified Qualified Code(s): I50.9 - Heart failure, unspecified
[2023-02-08 09:41] LABS: Hematocrit (blood only) 40.4 % (37.0-47.0); Hemoglobin 12.5 g/dl (12.0-16.0); Mean Corpuscular Hemoglobin 21.7 pg (25.0-34.0); Mean Corpuscular Hgb Conc 30.9 g/dL (32.0-36.0); Mean Corpuscular Volume 70.3 fL (80.0-100.0); Mean Platelet Volume 10.1 fL (9.4-12.4); Platelet Count 420 K/uL (130-400); RDW Coefficient of Variation 23.7 % (11.5-14.5); RDW Standard Deviation 57.9 fL (36.4-46.3); Red Blood Count 5.75 M/uL (4.20-5.40); White Blood Count 7.74 K/ul (4.8-10.8)
[2023-02-08 09:57] LABS: Albumin Globulin Ratio 0.9 (0.9-2); Albumin Level 4.1 gm/dl (3.4-5.0); BUN Creatinine Ratio 17.1 (10-20); Bilirubin,Total 0.4 mg/dl (0.2-1.0); Creatinine Clr Calc Pharmacy 85.9 ml/min; Est GFR (African American) 60.9 ml/min; Est GFR (Non-African American) 52.6 ml/min; Globulin 4.5 gm/dl (2.5-4.0); Magnesium 2.2 mg/dl (1.7-2.4); Total Protein 8.6 gm/dl (6.0-8.3)
--- NOTE | 2023-02-08 14:18 | Discharge Summary ---
Date of Service February 08, 2023 Admission HPI Per Admitting Provider Lyudmila is a 47 year old female with a PMH significant for chronic respiratory failure on baseline 6L NC, HFpEF (LVEF of 60-65%, mild mitral regurg, tricuspid regurg, severe pulm HTN as of 09/25/22), GIULIANA, PE in 1993 S/P pulmonary endarterectomy in 1993 and 2003, currently on Warfarin, DM II, HTN, and asthma who presented to the [facility] ED on 02/06/23 with a chief complaint of worsening SOB. In the ED the patient was initially found to be afebrile, hemodynamically stable, and stable on 10 L NC. Labs were significant for a WBC WNL, stable hgb, MCV of 71, MCHC of 30, platelets of 450, INR of 2.4, cr of 1.32 (baseline appears around 1.1), potassium of 2.8, chloride of 89, AG of 12 with bicarb of 34, BUN of 26, BNP of 28, procal of 0.06, negative full respiratory biofire. Chest xray was read as "1. Cardiomegaly with evidence of congestive failure and pulmonary edema. 2. Asymmetric airspace opacities are seen at the right apex and there was an asymmetric edema. Correlate clinically for evidence of a superimposed infectious/inflammatory pneumonitis. Radiographic follow-up to resolution is recommended. Prior to admission the patient was given a dose of azithromycin, ceftriaxone, 2mg IV Bumex, 10 meq IV KCL, and 20 meq PO KCL. AT the time of the exam the patient was sitting in bed in no acute distress, she was saturating at 98% on 7L NC. I tried to turn her down to her baseline 4L NC but she fell to the low 90's at rest. She states that she had a balloon angioplasty procedure on January 18 down in [place] for her pulmonary HTN. Prior to the procedure she was requiring 6L NC but was able to be titrated down to 4L NC on discharge. Since 02/02 she has been experiencing a productive cough with yellow sputum, increased SOB, and increased O2 demands. She states that her SpO2 goal is at or above 95%. She was falling into the 80's with exertion over the past few days. She called her PCP on Sunday and they started her on a 6 day course of methylprednisolone. She states that her breathing has not improved since starting the steroid treatment. She is concerned that she may have another PE as she has required two previous endarterectomy's in the past. She explains that her Warfarin was held a week before her balloon angioplasty on 01/18 and she was on a heparin drip prior to the procedure. After the procedure she was bridged with lovenox and her Warfarin was restarted. She denies recent fevers, chills, chest pain, pleuritic chest pain, hemoptysis, nausea, vomiting, diarrhea, dysuria, hematuria, melena, LE swelling and recent trauma. At the time of the exam she does not feel as though her SOB has improved compared to arrival. Please refer to Dr. Smyth's attestation for any changes to the treatment plan Admission Exam Per Admitting Provider Physical Exam: General:In no acute distress, stated age, well-nourished, good hygiene, chronically ill appearing HEENT:Normocephalic, atraumatic, currently with NC in place, no scleral icterus, pupils around round, symmetrical, and reactive to light, moist mucus membranes, trachea midline, no thyromegaly Chest/Pulm:No respiratory distress, symmetrical chest expansion, rhonchi and expiratory wheezing noted in the RUL, expiratory wheezing noted int he RLL, left lung is CTA Cardiac:RRR, systolic murmur noted Abdomen:Negative for ascites and bruising, normoactive bowel sounds, soft, non-tender to palpation throughout Musculoskeletal:Symmetrical and without signs of acute trauma, upper and lower extremities with full ROM, no atrophy, spasticity, or flaccidity Extremities:Radial, dorsalis pedis, and posterior tibial pulses are intact and symmetrical, no edema noted in the BL LE's Skin:Warm, dry, no rashes , lesions, or scars noted Neuro:Alert and oriented to person, place, month, year, and president, no focal defects, no tremors noted Psych:No acute distress, calm and cooperative during the exam Principal Diagnosis Pneumonia Discharge Exam Eyes: PERRL, conjunctivae normal, anicteric sclerae ENMT: external ear and nose normal, oropharynx normal nasal cannula in place Neck: normal visual inspection and + thick neck Respiratory: normal respiratory effort, lungs clear to auscultation Cardiovascular: Rate/Rhythm: regular rate and regular rhythm Extremities: + edema (+1 pitting edema) Gastrointestinal (Abdomen): Inspection/Auscultation: abdomen normal to inspection Percussion/Palpation: abdomen soft; abdomen nontender Skin: no rashes, warm and dry Discharge Data Allergies Allergy/AdvReac Type Severity Reaction Status Date / Time Penicillins Allergy Intermediate HIVES-EYES Verified 02/06/23 15:45 SWELLED codeine AdvReac Intermediate PASTED OUT Verified 02/06/23 15:45 Consultations 02/06/23 16:00 ED Decision to Admit Stat Ordered Studies 02/06/23 17:33 CT angio chest PE protocol Stat Hospital Course (1) Pneumonia: 47yo Female with PMH chronic respiratory failure on 6L O2 at home, HFpEF, GIULIANA, hx. PE on warfarin, DMII, HTN, asthma here for increased SOB. Acute on chronic respiratory failure with hypoxia: -on admit required 10L O2 -at this time satting well at 5L O2, she chronically uses 6L at home Pneumonia >CTA chest was negative for PE, she is not volume overloaded, CTA of the chest shows multifocal airspace consolidation BL, full respiratory biofire is negative -received Ceftriaxone and Azithromycin in the ED, switched to vancomycin cefepime to cover hospital acquired PNA vancomycin dc'd given negative MRSA nares - blood cultures negative 24hr will dc on cefdinir 300mg BID for 5 days (for a total of 7 day course) -Supportive treatment with Incentive spirometry, flutter therapy, prn robitussin & DuoNebs Hypokalemia: -Initially 2.8 in the ED today, no acute ECG changes, Mag WNL -Likely due to her daily Bumex. Repleted. -continue home PO 40 meq KCl TID Pulmonary hypertension: -Hx of severe Pulm HTN -S/P recent balloon angioplasty at [place] on 01/18 -Patient using her riociguat brought from home GIULIANA (obstructive sleep apnea): -HS CPAP ordered as she is without acute PE Pulmonary embolism: -Hx of chronic PE's -No acute PE on CTPE today -Continue Warfarin, therapeutic today with INR of 2.4 Asthma: -Prn DuoNebs for wheezing HTN (hypertension): -Stable -Continue home bumex of 3 mg PO BID DM II (diabetes mellitus, type II), controlled: -Held Metformin and Mounjaro while in hospital. To resume on discharge. (2) Pulmonary hypertension: (3) CHF (congestive heart failure): (4) DM II (diabetes mellitus, type II), controlled: (5) Acute on chronic respiratory failure with hypoxia: (6) Chronic CHF (congestive heart failure): (7) O2 dependent: (8) Morbid obesity with BMI of 50.0-59.9, adult: (9) GIULIANA (obstructive sleep apnea): Total Time Total Time Spent Total Time Spent (In Minutes): see attending attestation Discharge Plan Discharge Items Patient Disposition: Home - Self-Care Reason For Visit: SOB Discharge Diagnosis: Pneumonia Activity: Resume your previous activity Non-emergency contact: Primary Care Provider Call non-emergency contact if: you have any medication questions, your symptoms worsen and you have a fever Follow-up/Referrals: Beulah Valle DO [Primary Care Provider] - 02/16/23 2:05 pm (Dr Villanueva ) Diet: Carb Consistent or DM2 and Heart Healthy Addtl Attending Provider Instructions: You were admitted to the hospital for pneumonia. You were treated with with antibiotics, and your symptoms improved. Upon returning home, please complete your course of antibiotics. A discharge summary will be sent to your primary care physician to ensure continuity of care. Please bring this discharge summary with you to your next office appointment so that your provider can review it at that time. Follow-up appointments: Make a follow-up appointment with your PCP within the next week. It is very important that you follow up with them shortly after discharge from the hospital. Keep all your follow-up appointments as already scheduled. If you cannot make an appointment, notify your provider. Medications: Your medication list has been reviewed and reconciled upon discharge to ensure accuracy and continuity of care. An updated list of all your medications is included with your hospital discharge paperwork. Please review this list closely, and make note of any changes. * We sent a new medication called Cefdinir to your pharmacy. Take Cefdinir 300mg one tablet twice a day for 5 days, with the first dose starting this evening. Take your medications as instructed; do not skip a dose of your medicines. Make sure all of your doctors know every medicine you are taking (including irss-sqi-xvzhkab medicines, vitamins, and supplements). Call your primary care provider before taking any new medicines (including [id number]-rxzpunz medicines, vitamins, and supplements), because some of these may interact with your current medications, or may make your symptoms worse. Tell your primary care provider if you cannot afford your medications. CONTACT YOUR PRIMARY CARE PROVIDER if you experience any of the following: Increased difficulty breathing Increased weakness or confusion Difficulty following your treatment plan, or difficulty taking medications CALL 911 OR GO TO THE EMERGENCY DEPARTMENT if you experience any of the following: Sudden, severe abdominal pain or nausea/vomiting Severe chest pain, or chest pain that radiates (moves) to your jaw or arm Sudden, severe shortness of breath or difficulty breathing Thank you for allowing us to participate in your care. Pending Studies at Discharge: No Stand-Alone Forms: [facility], Work/School Release, Smoking Cessation Medications and DC Order Prescriptions: New cefdinir 300 mg Capsule 300 mg PO BID 5 Days Qty: 9 0RF Rx Instructions: Please start your first dose this evening Continued ferrous sulfate 325 mg (65 mg iron) Tablet 325 mg PO DAILY omeprazole 20 mg Capsule,Delayed Release(Dr/Ec) 20 mg PO BID riociguat 2.5 mg tablet 2.5 mg PO TID metolazone 2.5 mg tablet 2.5 mg PO DIRECTED PRN (Reason: NEEDED PER MED LIST) Rx Instructions: Takes when having menses warfarin [Jantoven] 7.5 mg tablet 7.5 mg PO QPM potassium chloride 10 mEq tablet extended release 40 meq PO TID tramadol 50 mg tablet 50 mg PO BID PRN (Reason: Pain) metformin 750 mg tablet extended release 24 hr 750 mg PO DAILY topiramate 50 mg tablet 50 mg PO DAILY bumetanide 2 mg tablet 3 mg PO BID Rx Instructions: 3 MG PER PT MED LIST, PER EXT MED HX--4 MG BID. TAKES QAM & AFTERNOON cetirizine 10 mg tablet 10 mg PO DAILY PRN (Reason: Congestion) prochlorperazine maleate [Compazine] 5 mg Tablet 5 mg PO TID PRN (Reason: NAUSEA/VOMITING) vitamin B complex Tablet 1 tab PO DAILY methylprednisolone 4 mg tablets,dose pack 0 mg PO DAILY Rx Instructions: STARTED 02/03/23 FOR 6 DAYS. cholecalciferol (vitamin D3) [Vitamin D3] 25 mcg (1,000 unit) Capsule 25 mcg PO DAILY berberine-herbal comb no.18 Capsule 1 cap PO DAILY cinnamon bark [Cinnamon] 500 mg Capsule 500 mg PO DAILY Mounjaro 5 mg/0.5 mL Pen Injector 5 mg SUBCUT WK Rx Instructions: MONDAYS Discharge Orders: Discharge Order (Routine); Ordered 02/08/23 Ordered By: Yajaira Santiago/Other Patient Handouts: Cefdinir Oral Capsule, Treating Pneumonia Admission Data Admit Date/Time: 02/06/23 16:57 Attending Provider: Natalie Haider Admit Provider: Geoff Smyth Primary Care Provider: Beulah Valle Providers: Geoff Smyth Supervising Physician Co-Signing Physician Notes Resident Physician Supervision Note: I independently interviewed and examined the patient and verified the scales history and physical, reviewed labs and image studies and agree with resident findings and care plan. Resident Activity Tracking Resident Involvement: Resident Care Provided Care Provided: Adult Hospital Medicine
[2023-02-08] MEDS ORDERED: CEFDINIR 300 MG CAP PO SCH ×2 (15:50→21:00)
[2023-02-08] MEDS: WARFARIN SOD 7.5 MG TAB PO SCH (15:55)
== END 2023-02-08 16:20 | disposition home or self-care (01) | DRG 193 ==
LOC: ED 13:45 → SUATTDRO 16:57 → EDINP 16:57 → 2W 19:13